=== PATIENT | female | born 1940 | race American Indian/Alaskan Native ===

== ENCOUNTER 2016-05-03 21:09 | Inpatient (IN) | payer MEDICARE ==
--- NOTE | 2016-05-03 21:53 | Emergency Department Report ---
HPI - General Time Seen by Provider: 05/03/16 21:44 - HPI HPI: This is a 76-year-old Afro-[place] female who presents to the emergency department via EMS from home with complaint of generalized pain. The patient's daughter, whom she lives with, is bedside currently. She says that the patient began complaining of a headache and then it started going down to her sides in her back. She was given her oral morphine and oxycodone around 8 PM this evening without much relief. Patient takes these medications for chronic back pain secondary to some scoliosis. She has a past medical history of chronic kidney disease but is not hemodialysis dependent and she used to follow-up with Dr. Ovalle. She also has a past medical history of insulin-dependent diabetes, hypertension, COPD. Her primary care doctor is Dr. Thomas. No trauma reported. Patient denies any fever, nausea, vomiting, chest pain, shortness of breath, vision change. ED Past Medical Hx - Past Medical History Hx Hypertension: Yes Hx Heart Attack/AMI: Yes (2007) Hx Congestive Heart Failure: Yes Hx Diabetes: Yes Hx Renal Disease: Yes (chronic) Hx Arthritis: Yes Hx Asthma: No Hx COPD: Yes Hx HIV: No Additional medical history: CKD, diastolic heart fialure, CAD, chronic back pain , [place] - Surgical History Hx Coronary Stent: Yes (2007) Hx Appendectomy: Yes Additional Surgical History: cardiac stents in 2007 - Social History Smoking Status: Never Smoker - Medications Home Medications: Home Medications Medication Instructions Recorded Confirmed Last Taken Type Aspirin [Aspirin BABY CHEW TAB] 81 mg PO QDAY 10/25/13 10/09/15 09/13/14 History Carvedilol [Coreg] 12.5 mg PO BID 10/25/13 10/09/15 09/13/14 History Citalopram [Celexa] 20 mg PO QDAY 10/25/13 10/09/15 09/13/14 History Esomeprazole Magnesium [NexIUM] 40 mg PO BID 10/25/13 10/09/15 09/13/14 History Gabapentin 300 mg PO TID 10/25/13 10/09/15 09/13/14 History Hydralazine HCl [hydrALAZINE] 100 mg PO TID 10/25/13 10/09/15 09/13/14 History Insulin Aspart [NovoLOG 100 10 unit SQ ACHS 01/26/14 10/09/15 09/13/14 History UNITS/ML VIAL] Insulin Glargine,Hum.rec.anlog 30 units SQ QHS 01/26/14 10/09/15 09/13/14 History [Lantus] Oxycodone HCl/Acetaminophen 1 each PO Q8HR PRN 04/09/14 10/09/15 09/13/14 History [OxyCODONE-Acetaminophen 2.5-325 mg] Colchicine 0.6 mg PO BID 10/09/15 10/09/15 Unknown History Cyclobenzaprine HCl [Flexeril 5 MG 5 mg PO BID 10/09/15 10/09/15 Unknown History TAB] Furosemide [Lasix TAB] 40 mg PO QDAY 10/09/15 10/09/15 Unknown History Ramelteon [Rozerem] 8 mg PO DAILY 10/09/15 10/09/15 Unknown History Simvastatin [Zocor TAB] 20 mg PO QHS 10/09/15 10/09/15 Unknown History amLODIPine [Norvasc] 10 mg PO DAILY 10/09/15 10/09/15 Unknown History ED Review of Systems ROS: Stated complaint: BODY PAIN Other details as noted in HPI Comment: All other systems reviewed and negative Constitutional: denies: chills, fever Eyes: denies: eye pain, eye discharge, vision change ENT: denies: ear pain, throat pain Respiratory: denies: cough, shortness of breath, wheezing Cardiovascular: denies: chest pain, palpitations Gastrointestinal: denies: abdominal pain, nausea, diarrhea Genitourinary: denies: urgency, dysuria, discharge Musculoskeletal: back pain, arthralgia, myalgia Skin: denies: rash, lesions Neurological: headache. denies: numbness, paresthesias Physical Exam - Physical Exam Physical Exam: GENERAL: The patient is well-developed well-nourished. Patient does not appear to be in any acute distress but she yells out in pain any time she is touched. HEENT: Normocephalic. Atraumatic. Extraocular motions are intact. Patient has moist mucous membranes. Pupils equal reactive to light bilaterally. NECK: Supple. Trachea is midline. CHEST/LUNGS: Clear to auscultation. There is no respiratory distress noted. HEART/CARDIOVASCULAR: Regular. There is mild tachycardia. There is no gallop rub or murmur. ABDOMEN: Abdomen is soft, nontender. Patient has normal bowel sounds. There is no abdominal distention. SKIN: There is no rash. There is no diaphoresis. NEURO: The patient is awake, alert. The patient is cooperative. The patient has no focal neurologic deficits. The patient has normal speech. MUSCULOSKELETAL: There is no tenderness or deformity. There is no evidence of acute injury. ED Course - Consultations Consultation #1: The patients PCP, Dr Thomas, has been notified of the patients presentation to the ED and the plan for admission. He asks for consultation and this request will be passed on to the hospitalist. 05/04/16 05:06 ED Medical Decision Making - Lab Data Result diagrams: 05/03/16 22:27 05/03/16 22:27 - EKG Data -: EKG Interpreted by Me EKG shows normal: sinus rhythm, axis (left axis deviation), intervals (left incomplete bundle branch block), QRS complexes (LVH), ST-T waves Rate: tachycardia (105 bpm) - EKG Data When compared to previous EKG there are: no significant change Interpretation: unchanged when compared t (10/11/15) - Radiology Data Radiology results: report reviewed CT of the head without contrast does not show any acute intracranial process. Complete abdominal ultrasound does not show any obvious abnormalities. The gallbladder, common bile duct, and bilateral kidneys are all within normal limits. The pancreas, spleen and liver are not well visualized due to the patient's body habitus. Left kidney may have fluid within the renal pelvis but view was suboptimal. This is the preliminary reading from the pest technician. - Medical Decision Making 76-year-old female presents to the emergency department with complaint of a headache and generalized body aches. However during the patient's ER stay she became more fatigued and sleepy without any pain medication administration. Patient's labs show some abnormalities with a significant urinary tract infection and the patient has hyperglycemia with a blood sugar greater than 500. She was given some IV fluid resuscitation and IV insulin and it does come down to more reasonable level but still not to a normal level. Patient has elevation in her osmolality which could be early HHNK. However patient does not appear to need a insulin drip at this time. There is no signs of acidosis and the anion gap is not severely elevated, but it is also not had a normal level. Blood and urine cultures are sent and the patient was started on IV antibiotics for her urinary tract infection. The patient is nonambulatory at home but usually is able to help more with her activities of daily living. Patient will be admitted to the hospital for further evaluation and treatment and has been accepted for admission by the hospitalist. - Differential Diagnosis DKA, HHNK, UTI, fibromyalgia, tension headache, brain bleed Critical Care Time: No Critical care attestation.: If time is entered above; I have spent that time in minutes in the direct care of this critically ill patient, excluding procedure time. ED Disposition Clinical Impression: Transaminitis UTI (urinary tract infection) Qualifiers: Urinary tract infection type: acute cystitis Hematuria presence: without hematuria Qualified Code(s): N30.00 - Acute cystitis without hematuria Uncontrolled diabetes mellitus Qualifiers: Diabetes mellitus type: type 1 Diabetes mellitus complication status: with hyperglycemia Qualified Code(s): E10.65 - Type 1 diabetes mellitus with hyperglycemia Chronic pain Qualifiers: Chronic pain type: other chronic pain Qualified Code(s): G89.29 - Other chronic pain Disposition: OP ADMITTED IP TO THIS HOSP Is pt being admited?: Yes Condition: Stable Time of Disposition: 05:09
[2016-05-03 22:49] LABS: Hematocrit 36.1 % (30.3-42.9); Hemoglobin 11.1 gm/dl (10.1-14.3); Mean Corpuscular HGB Conc 31 % (30-34); Mean Corpuscular Hemoglobin 28 pg (28-32); Mean Corpuscular Volume 89 fl (79-97); Platelet Count 242 K/mm3 (140-440); Red Blood Count 4.04 M/mm3 (3.65-5.03); Red Cell Distribution Width 16.7 % (13.2-15.2); White Blood Count 12.4 K/mm3 (4.5-11.0)
[2016-05-03 22:59] LABS: Bacteria,Urine 2+ /HPF (Negative); Bilirubin,Urine NEG (Negative); Blood,Urine LG (Negative); Ketones,Urine NEG (Negative); Leukocyte Esterase,Urine LG (Negative); Mucus,Urine FEW /HPF; Nitrite,Urine NEG (Negative); Urobilinogen,Urine < 2.0 mg/dL (<2.0)
[2016-05-03 23:06] LABS: Albumin/Globulin Ratio 0.9 %; BUN/Creatinine Ratio 26.66; Bilirubin,Total 0.4 mg/dL (0.1-1.2); Calcium 8.3 mg/dL (8.4-10.2); Chloride 94.5 mmol/L (98-107); Potassium 4.1 mmol/L (3.6-5.0); Total Protein 6.3 g/dL (6.3-8.2)
[2016-05-03 23:17] LABS: Basophils % (Manual) 0 % (0.0-1.8); Blastocytes % (Manual) 0 %; Eosinophils % (Manual) 0 % (0.0-4.3)
[2016-05-03] MEDS ORDERED: LEVAQUIN 750MG/150ML 150 ML IV ONE (23:17)
[2016-05-03 23:18] LABS: Anisocytosis Few; Poikilocytosis Few
[2016-05-03 23:19] LABS: Diff Status Complete
--- NOTE | 2016-05-03 23:20 | Cat Scan Report ---
FINAL REPORT PROCEDURE: CT HEAD/BRAIN WO CON TECHNIQUE: Computerized tomography of the head was performed without contrast material. HISTORY: Headache COMPARISON: 07/13/2014 FINDINGS: There are diffuse involutional changes, with prominence of the ventricles and the sulci. There is no CT evidence of intracranial mass, hemorrhage, acute territorial infarction, or hydrocephalus. The intracranial arteries are symmetric in density. The calvarium is intact. Visualized and mastoids are aerated. IMPRESSION: No CT evidence of acute intracranial abnormality
[2016-05-03] MEDS ORDERED: SUBLIMAZE IV ONE (23:36)
[2016-05-03] MEDS ORDERED: NACL 0.9% 500 ML 500 ML IV ONE (23:37)
--- NOTE | 2016-05-04 01:35 | Admit Criteria Form ---
Admission Criteria Documentation: HEADACHES: OBSERVATION CARE USE THIS FORM ONLY WHEN INPATIENT ADMISSION CRITERIA ARE NOT MET. (Place X for any and all applicable criteria): Placement for observation may be appropriate for a patient with ANY ONE of the following(1)(2)(3)(4)(5)(6) )(7): []I. Vomiting and dehydration unresponsive to outpatient interventions [X]II. Pain insufficiently responsive to outpatient intervention []II. Acute neurologic signs []III. Mental status change []IV. Head trauma []V. Other observation care needs (Also use General Criteria: Observation Care ) The original [facility] [employer] content created by [employer] has been revised. The portions of the content which have been revised are identified through the use of italic text, and [facility] has neither reviewed nor approved the modified material. All other unmodified content is copyright [facility] [employer]. Please see references footnoted in the original [facility] 2014 Admission Criteria Met: Yes
[2016-05-04] MEDS ORDERED: NACL 0.9% 500 ML 500 ML ONE (02:11)
[2016-05-04] MEDS ORDERED: SUBLIMAZE ONE ×2 (02:12→11:11)
--- NOTE | 2016-05-04 04:20 | History and Physical Report ---
History of Present Illness Chief complaint: I cant breathe History of present illness: 76 YO Female with HTN, MN, CHF,DM, OA, COPD, CKD presents to ED for evaluation. Pt states that she has been feeling "sick" for the past several days. Pt denies fever, chills, CP, Palpitations, NVD. Pt seen in ED and found to have UTI and Sepsis. Pt started on IV abx and admitted to medical floor. Past History Past Medical History: acute MN, COPD, diabetes, hypertension, renal failure Past Surgical History: appendectomy, Other (cardiac stent) Social history: , lives with family. denies: smoking, alcohol abuse, prescription drug abuse Family history: diabetes, hypertension Medications and Allergies Allergies Allergy/AdvReac Type Severity Reaction Status Date / Time No Known Allergies Allergy Verified 09/13/14 17:59 Home Medications Medication Instructions Recorded Confirmed Last Taken Type Aspirin [Aspirin BABY CHEW TAB] 81 mg PO QDAY 10/25/13 10/09/15 09/13/14 History Carvedilol [Coreg] 12.5 mg PO BID 10/25/13 10/09/15 09/13/14 History Citalopram [Celexa] 20 mg PO QDAY 10/25/13 10/09/15 09/13/14 History Esomeprazole Magnesium [NexIUM] 40 mg PO BID 10/25/13 10/09/15 09/13/14 History Gabapentin 300 mg PO TID 10/25/13 10/09/15 09/13/14 History Hydralazine HCl [hydrALAZINE] 100 mg PO TID 10/25/13 10/09/15 09/13/14 History Insulin Aspart [NovoLOG 100 10 unit SQ ACHS 01/26/14 10/09/15 09/13/14 History UNITS/ML VIAL] Insulin Glargine,Hum.rec.anlog 30 units SQ QHS 01/26/14 10/09/15 09/13/14 History [Lantus] Oxycodone HCl/Acetaminophen 1 each PO Q8HR PRN 04/09/14 10/09/15 09/13/14 History [OxyCODONE-Acetaminophen 2.5-325 mg] Colchicine 0.6 mg PO BID 10/09/15 10/09/15 Unknown History Cyclobenzaprine HCl [Flexeril 5 MG 5 mg PO BID 10/09/15 10/09/15 Unknown History TAB] Furosemide [Lasix TAB] 40 mg PO QDAY 10/09/15 10/09/15 Unknown History Ramelteon [Rozerem] 8 mg PO DAILY 10/09/15 10/09/15 Unknown History Simvastatin [Zocor TAB] 20 mg PO QHS 10/09/15 10/09/15 Unknown History amLODIPine [Norvasc] 10 mg PO DAILY 10/09/15 10/09/15 Unknown History Review of Systems All systems: negative Constitutional: weakness, malaise Exam - Constitutional Vitals: Temp Pulse Resp BP Pulse Ox 98.8 F 102 H 16 133/76 100 05/03/16 23:31 05/03/16 22:31 05/03/16 22:31 05/03/16 23:25 05/03/16 23:25 General appearance: Present: obese - EENT Eyes: Present: PERRL ENT: hearing intact, clear oral mucosa - Neck Neck: Present: supple - Respiratory Respiratory: bilateral: diminished - Cardiovascular Heart Sounds: Present: S1 & S2. Absent: rub, click - Extremities Extremities: pulses symmetrical, No edema Extremity abnormal: edema Peripheral Pulses: within normal limits - Abdominal General gastrointestinal: Present: soft, non-tender, non-distended, normal bowel sounds Female genitourinary: Present: normal - Integumentary Integumentary: Present: clear, warm, dry - Musculoskeletal Musculoskeletal: generalized weakness - Psychiatric Psychiatric: appropriate mood/affect, intact judgment & insight - Neurologic Neurologic: CNII-XII intact, moves all extremities Results - Labs CBC & Chem 7: 05/03/16 22:27 05/03/16 22:27 Labs: Abnormal lab results 05/03/16 05/03/16 05/03/16 Range/Units 22:03 22:27 22:27 WBC 12.4 H (4.5-11.0) K/mm3 RDW 16.7 H (13.2-15.2) % Seg Neuts % (Manual) 96.0 H (40.0-70.0) % Lymphocytes % (Manual) 0 L (13.4-35.0) % Nucleated RBC % 1.0 H (0.0-0.9) % Seg Neutrophils # Man 11.9 H (1.8-7.7) K/mm3 Lymphocytes # (Manual) 0.0 L (1.2-5.4) K/mm3 Sodium 135 L (137-145) mmol/L Chloride 94.5 L (98-107) mmol/L BUN 40 H (7-17) mg/dL Creatinine 1.5 H (0.7-1.2) mg/dL Glucose 513 H* (65-100) mg/dL POC Glucose 452 H (70-105) Calcium 8.3 L (8.4-10.2) mg/dL AST 262 H (5-40) units/L ALT 82 H (7-56) units/L Alkaline Phosphatase 138 H (35-129) units/L Albumin 3.0 L (3.9-5) g/dL Urine WBC (Auto) (0.0-6.0) /HPF 05/03/16 05/04/16 05/04/16 Range/Units 22:39 02:40 03:33 WBC (4.5-11.0) K/mm3 RDW (13.2-15.2) % Seg Neuts % (Manual) (40.0-70.0) % Lymphocytes % (Manual) (13.4-35.0) % Nucleated RBC % (0.0-0.9) % Seg Neutrophils # Man (1.8-7.7) K/mm3 Lymphocytes # (Manual) (1.2-5.4) K/mm3 Sodium (137-145) mmol/L Chloride (98-107) mmol/L BUN (7-17) mg/dL Creatinine (0.7-1.2) mg/dL Glucose (65-100) mg/dL POC Glucose 351 H 346 H (70-105) Calcium (8.4-10.2) mg/dL AST (5-40) units/L ALT (7-56) units/L Alkaline Phosphatase (35-129) units/L Albumin (3.9-5) g/dL Urine WBC (Auto) 108.0 H (0.0-6.0) /HPF Assessment and Plan - Patient Problems (1) Sepsis Current Visit: Yes Status: Acute Plan to address problem: Sepsis Protocol:IV abx, IVF, suportive care, monitor uop q shift, blood cultures (2) UTI (urinary tract infection) Current Visit: Yes Status: Acute Qualifiers: Urinary tract infection type: acute cystitis Hematuria presence: without hematuria Qualified Code(s): N30.00 - Acute cystitis without hematuria Plan to address problem: IV abx, supportive care, (3) CKD (chronic kidney disease) Current Visit: No Status: Chronic Plan to address problem: IVF, monitor uop q shift, (4) Chronic obstructive pulmonary disease Current Visit: No Status: Chronic Plan to address problem: Stable, No exacerbation at this time. supplemental oxygen, incentive spirometry , aspiration precautions. (5) Chronic respiratory failure with hypoxia Current Visit: No Status: Chronic Plan to address problem: supplemental oxygen, nebs, (6) Debility Current Visit: Yes Status: Acute Plan to address problem: PT consulted (7) DVT prophylaxis Current Visit: No Status: Acute
[2016-05-04] MEDS ORDERED: D50W (25GM) IV PRN (04:21)
[2016-05-04] MEDS: NOVOLOG SUB-Q SCH ×3 (09:25→17:38)
[2016-05-04] MEDS: LEVAQUIN 750MG/150ML 150 ML IV SCH (10:34)
--- NOTE | 2016-05-04 10:54 | Ultrasound Report ---
FINAL REPORT EXAM: US RENAL BILAT HISTORY: Flank pain, UTI . Prior history of renal stones TECHNIQUE: Ultrasound of the kidneys PRIORS: None. FINDINGS: Examination the kidneys demonstrates both to be normal in size and have normal cortical echogenicity and thickness. The right and left kidneys measure 9.7 cm and 9.7 cm in craniocaudal length, respectively. No evidence for calculi, hydronephrosis, or solid mass is seen in either kidney. The urinary bladder shows no intraluminal abnormality or wall thickening. IMPRESSION: Negative ultrasound of the kidneys.
--- NOTE | 2016-05-04 11:52 | Ultrasound Report ---
ULTRASOUND ABDOMEN: INDICATION: Abdominal pain, elevated LFT. COMPARISON: 10/09/2015 CT. FINDINGS: Abdominal sonography somewhat limited due to patient's body habitus, though suggests grossly normal hepatic contours without definite focal suspicious lesions or biliary dilatation. Slight diffuse hepatic echogenic coarsening not excluded. No gallstones, pericholecystic fluid or positive sonographic Cruz sign. Gallbladder wall thickness is 1.7 mm. Common bile duct is 5.4 mm. Patient though unable to turn left lateral decubitus. No ascites. Splenic visualization limited, though grossly unremarkable and estimated at 8.5 cm length. No ascites. Pancreas not well seen, obscured due to bowel gas. Unremarkable IVC and nonaneurysmal abdominal aorta. Right kidney approximately 9.7 x 5 x 4.9 cm with cortical thickness of 1.2 cm. Left kidney estimated at 9.1 x 5.6 x 4.8 cm with cortical thickness of 1.3 cm. No hydronephrosis on the right, though subtle left intrarenal collecting system fullness centrally not entirely excluded. CONCLUSION: 1. Slight diffuse hepatic echogenic coarsening not entirely excluded on this somewhat limited exam. 2. Questionable slight left intrarenal collecting system fullness/hydronephrosis. Thank you for the opportunity to participate in this patient's care.
--- NOTE | 2016-05-04 14:06 | Admit Criteria Form ---
Admission Criteria Documentation: SEVERE SEPSIS Clinical Indications for Admission to Inpatient Care (Place 'X' for any and all applicable criteria): Hospital admission is needed for appropriate care of the patient because of ANY ONE of the following: [X]I. Hemodynamic instability indicated by ANY ONE of the following(1)(2)(3)( 4)(5): []a. Vital sign abnormality not readily corrected by appropriate treatment within 12 to 24 hours indicated by ANY ONE of the following: []i) Tachycardia that persists despite appropriate treatment []ii) Hypotension that persists despite appropriate treatment []iii) Orthostatic vital sign changes that persist despite appropriate treatment [X]b. Vital sign abnormality that is severe indicated by ANY ONE of the following: []i. Inadequate perfusion indicated by ANY ONE of the following: [X]1) Lactic acidosis (greater than 2 mmol/L) []2) New abnormal capillary refill (greater than 3 seconds) []3) Reduced urine output []4) New altered mental status []5) Myocardial Ischemia []ii. Mean arterial pressure [A] less than 60 mm Hg []iii. Mean arterial pressure[A] less than 70 mm Hg after 30 minutes of appropriate treatment (eg, fluid resuscitation) []iv. Sustained heart rate greater than 120 beats per minute in adult []v. IV inotropic or vasopressor medication required to maintain adequate blood pressure or perfusion []II. Systemic or infectious condition causing severe symptoms or findings not responsive to emergency or observation care treatment (as appropriate) indicated by ANY ONE of the following: []a. Cardiac arrhythmias of immediate concern(1)(2)(3) []b. Severe endocrine disorder (eg, thyrotoxicosis, adrenal insufficiency)(4)(5) []c. Seizures (eg, new or recurrent)(6) []d. New-onset end organ failure or dysfunction as indicated by ANY ONE of the following: []i. Acute unexplained hypoxemia (eg, not from lung infection or chronic disease)(7)(8)(9) []ii. Acute renal failure as indicated by new onset of ANY ONE of the following(10)(11)(12)(13)(14): []1) 3-fold rise in serum creatinine from baseline []2) Serum creatinine greater than 4 mg/dL (354 micromoles/L) with acute rise greater than 0.5 mg/dL (44.2 micromoles/L) []3) Reduction of more than 75% in estimated glomerular filtration rate from baseline. []4) Estimated glomerular filtration rate less than 35 mL/min/1.73m2 ( 0.59 mL/sec/1.73m2) in child younger than 18 years. []5) Cessation of urine output indicated by ALL of the following: []A. Adequate volume status []B. Inadequate urine output as indicated by ANY ONE of the following: []a. Urine output less than 0.3 mL/kg/hr for 24 hours []b. Anuria (urine output less than 0.1 mL/kg/hr) for 12 hours []iii. Acute mental status changes(15) []iv. Acute hepatic failure (eg, plasma bilirubin greater than 4 mg/ dL (68 micromoles/L), new INR greater than 2.0)(16)(17) []e. Unmanageable nausea and vomiting(18) []f. New-onset or uncontrolled central diabetes insipidus(19)(20) []g. Clinically significant dehydration(18)(21) []h. Hypoglycemia(22) []i. Acidosis (pH less than 7.35) or alkalosis (pH greater than 7.45)( 22)(23) []j. Toxic drug level that indicates need for specific monitoring or treatment(24)(25) []k. Severe electrolyte abnormalities indicated by ALL of the following( 1)(2)(3): []i. Electrolytes and associated findings are not as expected for patient baseline or acceptable treatment effects. []ii. Severe abnormalities indicated by ANY ONE of the following: []1) Sodium less than 130 mEq/L (mmol/L) (new) []2) Sodium less than 135 mEq/L (mmol/L) with ANY ONE of the following: []A. Uncorrectable (to near normal or chronic baseline) after trial of outpatient and emergency treatment []B. Altered mental status []C. Seizures []D. Severe medical etiology requiring inpatient management (eg , heart failure, hypovolemia) []3) Sodium greater than 155 mEq/L (mmol/L) []4) Sodium greater than 150 mEq/L (mmol/L) with ANY ONE of the following: []A. Uncorrectable (to near normal or chronic baseline) with outpatient and emergency treatment []B. Altered mental status []C. Seizures []D. Severe medical etiology (eg, hypovolemia, diabetes insipidus) []5) Potassium less than 2.5 mEq/L (mmol/L) despite outpatient and emergency treatment []6) Potassium less than 3 mEq/L (mmol/L) with ANY ONE of the following : []A. Weakness []B. Cardiac abnormality (eg, arrhythmia, conduction disturbance ) []C. Cardiac ischemia []D. Ileus []E. Ongoing medical cause requiring inpatient management (eg, acute renal wasting or SIADH) []F. Other severe symptoms []7) Potassium greater than 6.5 mEq/L (mmol/L) []8) Potassium greater than 5 mEq/L (mmol/L) with ANY ONE of the following: []A. Uncorrectable (to near normal or chronic baseline) with outpatient and emergency treatment []B. Severe ECG findings[A] []C. Acute worsening of renal failure (creatinine greater than 2.5 mg/dL (221 micromoles/L) or significant elevation for age and size) []D. Severe weakness []E. Severe medical etiology (eg, hemolysis, infection, drug overdose) []9) Calcium less than 7 mg/dL (1.75 mmol/L) despite outpatient and emergency treatment(5) []10) Calcium less than 8 mg/dL (2 mmol/L) with significant symptoms or findings (eg, altered mental status, muscle spasms, seizures, breathing difficulty, cardiac abnormality (eg, arrhythmia or conduction disturbance))(5) []11) Calcium greater than 14 mg/dL (3.5 mmol/L)(5) []12) Calcium greater than 12 mg/dL (3 mmol/L) with ANY ONE of the following(5): []A. Uncorrectable (to near normal or chronic baseline) with outpatient and emergency treatment []B. Significant dehydration or hypovolemia as indicated by ALL of the following(3)(6)(7): []a. Not resolved with initial treatments []b. Clinically significant dehydration as indicated by ANY ONE of the following: [](1) Vomiting refractory to outpatient treatment (ie, precluding oral rehydration) [](2) Inability to drink [](3) Hypernatremia or other electrolyte abnormality unable to be corrected with outpatient and emergency treatment [](4) Failure to remain hydrated with outpatient therapy [](5) Reduced urine output [](6) Hypotension [](7) Serious cause for dehydration requiring acute hospitalization ( eg, bowel obstruction, increased intracranial pressure, infectious cause) [](8) Child with ANY ONE of the following(8): [](i) Severe abdominal tenderness [](ii) Adequate care not available at home [](iii) Severe dehydration (greater than 9% loss of body weight) []C. Significant symptoms or findings (eg, altered mental status , cardiac abnormality (eg, arrhythmia, conduction disturbance), malignant etiology requiring inpatient treatment) []13) Phosphorus less than 1 mg/dL (0.32 mmol/L) []14) Phosphorus less than 1.5 mg/dL (0.48 mmol/L) with ANY ONE of the following: []A. Patient unresponsive to outpatient and emergency treatment []B. Significant symptoms or findings (eg, weakness, altered mental status, breathing difficulty, seizures, rhabdomyolysis) []15) Phosphorus greater than 10 mg/dL (3.2 mmol/L) []16) Phosphorus greater than 4.5 mg/dL (1.45 mmol/L) (new) with ANY ONE of the following: []A. Severe medical etiology (eg, crush injury, acute renal failure) []B. Associated hypocalcemia with significant findings (eg, neurologic symptoms, altered mental status, muscle spasms, seizures, breathing difficulty, cardiac abnormality (eg, arrhythmia, conduction disturbance)) []16) Magnesium less than 1 mg/dL (0.41 mmol/L) []17) Magnesium less than 1.5 mg/dL (0.62 mmol/L) with ANY ONE of the following: []A. Patient unresponsive to outpatient and emergency treatment []B. Associated hypocalcemia with significant findings (eg, altered mental status, muscle spasms, seizures, breathing difficulty, cardiac abnormality (eg, arrhythmia, conduction disturbance)) []C. Associated hypokalemia (potassium less than 3 mEq/L (mmol/L )) with risk of arrhythmia []18) Magnesium greater than 4 mEq/L (2 mmol/L) []19) Magnesium greater than 2.5 mEq/L (1.25 mmol/L) with significant symptoms or findings (eg, weakness, altered mental status, cardiac abnormality (eg, arrhythmia, conduction disturbance), breathing difficulty, severe medical etiology (eg, renal failure, hypovolemia)) []20) Uric acid greater than 20 mg/dL (1190 micromoles/L)(9) []21) Uric acid greater than 8 mg/dL (476 micromoles/L) with significant symptoms or findings of tumor lysis syndrome (eg, creatinine greater than 1.5 times upper limit of normal, cardiac abnormality (eg , arrhythmia, conduction disturbance), seizure)(9) []III. High fever or other high-risk infection situation as indicated by ANY ONE of the following(26)(27)(28): []a. Outpatient and observation care antimicrobial treatment unavailable, not effective, or not appropriate []b. Documented bacteremia []c. Temperature greater than 104.9 degrees F (40.5 degrees C) (oral) []d. Temperature greater than 103.1 degrees F (39.5 degrees C) (oral) or less than 96.8 degrees F (36 degrees C) (rectal) that does not respond to emergency treatment and observation care []IV. High-risk febrile neutropenia[A] as indicated by ANY ONE of the following(29)(30)(31)(32): []a. Profound neutropenia[B] anticipated to extend for more than 7 days []b. Hemodynamic instability []c. Hypoxemia []d. Tachypnea []e. Altered mental status []f. New-onset abdominal pain []g. New-onset vomiting or diarrhea []h. Oral or gastrointestinal mucositis that interferes with swallowing or causes severe diarrhea []i. Focal infection (eg, cellulitis, pneumonia, central line or catheter infection, perirectal abscess) []j. Renal insufficiency (eg, GFR of less than 30 mL/min/1.73m2 (0.5 mL/sec /1.73m2)). []k. Severe liver dysfunction (transaminase levels greater than 5 times normal) []l. Platelet count less than 50,000/mm3 (50 x109/L)(33) []m. Leukemia or lymphoma induction therapy []n. Leukemia not in complete remission or with evidence of disease progression []o. Bone marrow transplant patient []p. Alemtuzumab being used for therapy []q. [employer] for Supportive Care in Cancer (MASCC) Risk Index score of less than 21[C](33)(35). []V. Isolation required (eg, tuberculosis that requires isolation, Ebola infection)[D](36)(37)(38)(39)(40) []. Gangrene that requires treatment beyond emergency or observation level care(41)(42) []VII. Antitoxin administration and ongoing observation required (eg, tetanus, botulism)(43)(44) []. Suspected infection with rapid progression or severe symptoms as indicated by ANY ONE of the following(45): []a. Streptococcal or staphylococcal toxic shock(46) []b. Diphtheria(47) []c. Hantavirus(48) []d. Severe acute respiratory syndrome(8)(49) []e. Anthrax(50) []f. Ebola[D](36)(37)(38) []g. Necrotizing soft tissue infection(41)(42) []h. Plague(50) []i. Other suspected infection that requires care beyond emergency or observation level care []VII. Severe adverse drug or systemic toxin reaction as indicated by ANY ONE of the following(24): []a. Serotonin syndrome(51)(52) []b. Neuroleptic malignant syndrome(51)(52) []c. Cholinergic syndrome with severe symptoms (eg, bronchorrhea, weakness , mental status changes, seizures)(53) []d. Anticholinergic syndrome []e. Sympathetic syndrome with severe symptoms (eg, seizures, mental status changes, cardiac dysrhythmias) []f. Other severe adverse drug or systemic toxin reaction that remains after emergency or observation level care (as appropriate) []VIII. Allergic reaction with severe symptoms (not responsive to emergency or observation care treatment as appropriate), including ANY ONE of the following(54): []a. Airway edema (pharyngeal, epiglottic, or laryngeal edema) []b. Stridor []c. Respiratory failure []d. Bronchospasm []e. Hypotension []IX. Environmental emergency (not responsive to emergency or observation care treatment as appropriate) as indicated by ANY ONE of the following(55)(56): []a. Hyperthermia []b. Heat stroke []c. Heat exhaustion []d. Hypothermia (temperature less than 95 degrees F (35 degrees C) rectal) (57) []e. Electrocution(58) []X. Complications of transplanted organ (ie, not covered elsewhere)[E] indicated by ANY ONE of the following(59): []a. Acute graft rejection (or graft vs. host disease)[F] requiring inpatient management (eg, intravenous immunosuppression)(60)(61)(62)( 63) []b. Acute failure of transplanted organ necessitating inpatient care (eg, cannot be managed in other setting) []c. Infection requiring inpatient management (eg, Hemodynamic instability, need for intravenous antimicrobial treatment)(64)(65) []d. Other complication of transplanted organ requiring inpatient management []XI. Systemic or Infectious Condition condition, symptom, or finding for which emergency and observation care have failed or are not considered appropriate. See General Criteria: Observation Care, General Admission Criteria or Pediatric General Admission Criteria guideline as appropriate. (Contents from SEVERE SEPSIS and SYSTEMIC OR INFECTIOUS CONDITION clinical indications for admission to inpatient care have been integrated in this form) The original [facility] content created by [facility] has been revised. The portions of the content which have been revised are identified through the use of italic text or in bold and [facility] has neither reviewed nor approved the modified material. All other unmodified content is copyright [facility]. Please see references footnoted in the original [facility] edition 2016 Admission Criteria Met: Yes
--- NOTE | 2016-05-04 17:37 | Consultation ---
History of Present Illness - Reason for Consult Consult date: 05/04/16 - History of Present Illness Patient seen , examined in the ER. She presented to the Er with difficulty breathing, w/u led to admission, for sxs management.Kindly asked to see, and help in management. Past History Past Medical History: acute [place], anemia, COPD, diabetes, hypertension, renal failure Past Surgical History: appendectomy, Other (cardiac stent) Social history: , lives with family. denies: smoking, alcohol abuse, prescription drug abuse Family history: diabetes, hypertension Medications and Allergies Allergies Allergy/AdvReac Type Severity Reaction Status Date / Time No Known Allergies Allergy Verified 09/13/14 17:59 Home Medications Medication Instructions Recorded Confirmed Last Taken Type Aspirin [Aspirin BABY CHEW TAB] 81 mg PO QDAY 10/25/13 10/09/15 09/13/14 History Carvedilol [Coreg] 12.5 mg PO BID 10/25/13 10/09/15 09/13/14 History Citalopram [Celexa] 20 mg PO QDAY 10/25/13 10/09/15 09/13/14 History Esomeprazole Magnesium [NexIUM] 40 mg PO BID 10/25/13 10/09/15 09/13/14 History Gabapentin 300 mg PO TID 10/25/13 10/09/15 09/13/14 History Hydralazine HCl [hydrALAZINE] 100 mg PO TID 10/25/13 10/09/15 09/13/14 History Insulin Aspart [NovoLOG 100 10 unit SQ ACHS 01/26/14 10/09/15 09/13/14 History UNITS/ML VIAL] Insulin Glargine,Hum.rec.anlog 30 units SQ QHS 01/26/14 10/09/15 09/13/14 History [Lantus] Oxycodone HCl/Acetaminophen 1 each PO Q8HR PRN 04/09/14 10/09/15 09/13/14 History [OxyCODONE-Acetaminophen 2.5-325 mg] Colchicine 0.6 mg PO BID 10/09/15 10/09/15 Unknown History Cyclobenzaprine HCl [Flexeril 5 MG 5 mg PO BID 10/09/15 10/09/15 Unknown History TAB] Furosemide [Lasix TAB] 40 mg PO QDAY 10/09/15 10/09/15 Unknown History Ramelteon [Rozerem] 8 mg PO DAILY 10/09/15 10/09/15 Unknown History Simvastatin [Zocor TAB] 20 mg PO QHS 10/09/15 10/09/15 Unknown History amLODIPine [Norvasc] 10 mg PO DAILY 10/09/15 10/09/15 Unknown History Active Meds: Active Medications Dextrose (D50w (25gm)) 50 ml IV PRN PRN PRN Reason: Hypoglycemia Levofloxacin/Dextrose (Levaquin 750mg/150ml) 150 mls @ 100 mls/hr IV Q24HR JULIA PRN Reason: Protocol Last Admin: 05/04/16 10:34 Dose: 100 mls/hr Insulin Aspart (Novolog) 0 units SUB-Q Q6HR JULIA PRN Reason: Protocol Last Admin: 05/04/16 12:55 Dose: 6 units Review of Systems Constitutional: weight gain, weakness, chronic pain Respiratory: dyspnea on exertion Musculoskeletal: neck pain, low back pain, leg numbness/tingling, arthritis Neurological: parathesias Exam - Constitutional Vitals: Temp Pulse Resp BP Pulse Ox 98.8 F 93 H 20 111/53 98 05/03/16 23:31 05/04/16 00:01 05/04/16 09:04 05/04/16 17:01 05/04/16 17:01 General appearance: Present: mild distress, well-nourished - EENT Eyes: Present: PERRL ENT: hearing intact, clear oral mucosa - Neck Neck: Present: supple, normal ROM - Respiratory Respiratory: bilateral: rhonchi - Cardiovascular Heart Sounds: Present: S1 & S2. Absent: rub, click - Extremities Extremities: pulses symmetrical, No edema Extremity abnormal: edema Peripheral Pulses: within normal limits - Abdominal General gastrointestinal: Present: soft, non-tender, non-distended, normal bowel sounds Female genitourinary: Present: deferred - Rectal Rectal Exam: deferred - Integumentary Integumentary: Present: clear, warm, dry - Musculoskeletal Musculoskeletal: gait normal, strength equal bilaterally - Psychiatric Psychiatric: appropriate mood/affect, intact judgment & insight - Neurologic Neurologic: CNII-XII intact, moves all extremities Results - Labs CBC & Chem 7: 05/03/16 22:27 05/03/16 22:27 Labs: Abnormal lab results 05/04/16 05/04/16 05/04/16 Range/Units 04:37 04:37 04:37 POC Glucose (70-105) Hemoglobin A1c 16.6 H (4-6) % Lactic Acid 2.9 H* (0.7-2.0) mmol/L LDL Cholesterol Direct 33 L (50-130) mg/dL HDL Cholesterol 115 H (40-59) mg/dL 05/04/16 05/04/16 05/04/16 Range/Units 07:27 08:52 12:44 POC Glucose 264 H 202 H (70-105) Hemoglobin A1c (4-6) % Lactic Acid 2.2 H* (0.7-2.0) mmol/L LDL Cholesterol Direct (50-130) mg/dL HDL Cholesterol (40-59) mg/dL Assessment and Plan - Patient Problems (1) Chronic pain Current Visit: Yes Status: Acute Qualifiers: Chronic pain type: other chronic pain Qualified Code(s): G89.29 - Other chronic pain Plan to address problem: safe pain control. (2) Debility Current Visit: Yes Status: Acute Plan to address problem: Will need supportive care, with Therapy.physically. (3) Uncontrolled diabetes mellitus Current Visit: Yes Status: Acute Qualifiers: Diabetes mellitus type: type 2 Diabetes mellitus complication status: with hyperglycemia Qualified Code(s): E10.65 - Type 1 diabetes mellitus with hyperglycemia Plan to address problem: This was initially in part due to chronic steroid use.Will need tighter BG control. (4) CKD (chronic kidney disease), stage II Current Visit: Yes Status: Chronic Plan to address problem: deffer to the renal service. (5) Anemia Current Visit: Yes Status: Acute Qualifiers: Qualified Code(s): D63.8 - Anemia in other chronic diseases classified elsewhere Plan to address problem: lab monitoring, treating the underlying problem.ie CKD.
--- NOTE | 2016-05-04 18:03 | Event Note ---
Date: 05/04/16 Patient seen and evaluated, medical records reviewed Patient was admitted this morning with worsening shortness of breath, workup is in progress Agreed with the current management, appropriate home medications resumed A.m. labs requested
[2016-05-04] MEDS ORDERED: NEURONTIN PO SCH (20:00)
[2016-05-04] MEDS: APRESOLINE PO SCH (20:18)
[2016-05-04] MEDS: NEURONTIN PO SCH (20:41)
[2016-05-04] MEDS ORDERED: NON-FORMULARY (Insulin Glargine,Hum.Rec.Anlog [Lantus] 30 UNITS) SQ SCH (22:00)
[2016-05-04] MEDS ORDERED: COREG PO SCH (22:00)
[2016-05-04] MEDS ORDERED: NON-FORMULARY (Colchicine [Colchicine] 0.6 MG) PO SCH (22:00)
[2016-05-05] MEDS: NOVOLOG SUB-Q SCH ×4 (00:41→19:46)
[2016-05-05] MEDS: COLCRYS PO SCH ×3 (00:44→22:09)
[2016-05-05] MEDS: COREG PO SCH ×3 (00:44→22:10)
[2016-05-05] MEDS: LEVEMIR SUB-Q SCH ×2 (00:51→23:17)
[2016-05-05] MEDS: ZOCOR PO SCH ×2 (01:06→23:12)
[2016-05-05 06:56] LABS: Hematocrit 30.1 % (30.3-42.9); Hemoglobin 9.4 gm/dl (10.1-14.3); Mean Corpuscular HGB Conc 31 % (30-34); Mean Corpuscular Hemoglobin 28 pg (28-32); Mean Corpuscular Volume 89 fl (79-97); Platelet Count 167 K/mm3 (140-440); Red Blood Count 3.38 M/mm3 (3.65-5.03); Red Cell Distribution Width 17.3 % (13.2-15.2)
[2016-05-05 06:58] LABS: BUN/Creatinine Ratio 19.33; Calcium 7.9 mg/dL (8.4-10.2); Chloride 94.7 mmol/L (98-107); Magnesium 1.4 mg/dL (1.7-2.3)
[2016-05-05 07:24] LABS: White Blood Count 21.1 K/mm3 (4.5-11.0)
[2016-05-05 08:27] LABS: Blastocytes % (Manual) 0 %
[2016-05-05 08:28] LABS: Anisocytosis 1+; Basophils % (Manual) 0 % (0.0-1.8); Eosinophils % (Manual) 0 % (0.0-4.3); Poikilocytosis 1+; Polychromasia 1+
[2016-05-05 08:29] LABS: Diff Status Complete; Dohle Bodies Few; Tear Drop Cells 1+
[2016-05-05] MEDS: APRESOLINE PO SCH ×3 (09:35→20:08)
[2016-05-05] MEDS: NEURONTIN PO SCH ×3 (09:35→22:09)
[2016-05-05] MEDS: BABY ASPIRIN PO SCH (09:35)
[2016-05-05] MEDS: NORVASC PO SCH (09:36)
[2016-05-05] MEDS: LASIX PO SCH (09:36)
[2016-05-05] MEDS: LEVAQUIN 750MG/150ML 150 ML IV SCH (09:37)
--- NOTE | 2016-05-05 19:26 | Progress Note ---
Assessment and Plan Assessment and plan: 1. Sepsis Fever, leukocytosis, tachycardia, positive UA Likely secondary to UTI Urine and blood cultures obtained, results pending On sepsis protocol - continue broad-spectrum antibiotics 2. UTI see above 3. Acute renal insufficiency superimposed on chronic kidney disease Renal function worsening, Cr 3 today, 1.5 for an admission Renal ultrasound with no acute findings (no obstruction, no hydronephrosis) Avoiding nephrotoxins Dose medications renally Monitor BUN/creatinine and electrolytes If further worsening, will hold diuretic 4. Uncontrolled diabetes BS on admission 500, Hemoglobin A1c 16 Family reports compliance with insulin; ? issues with absorption; plan to change administration site Accu-Cheks and SSI to assess insulin requirements 5. CAD With history of acute [place] On beta dinesh, aspirin and statin; not on BRANDON inhibitor likely secondary to chronic kidney disease 6. Hypertension BB controlled on Coreg, amlodipine, hydralazine, Lasix 7. Diastolic CHF On beta dinesh and diuretic (Lasix) Not an BRANDON inhibitor likely secondary to chronic kidney disease Monitoring I&O 8. Hyperlipidemia On statin 9. Gout Continue colchicine 10. DVT prophylaxis Heparin subcutaneous History Interval history: somnolent, no specific complaints; low grade fever this morning family at [facility], [facility] Hospitalist Physical - Constitutional Vitals: Temp Pulse Resp BP Pulse Ox 98.7 F 94 H 20 122/56 97 05/05/16 15:30 05/05/16 15:30 05/05/16 15:30 05/05/16 15:30 05/05/16 10:00 General appearance: Present: mild distress, obese (morbidly) - EENT Eyes: Present: PERRL, EOM intact. Absent: scleral icterus, conjunctival injection - Neck Neck: Present: supple, normal ROM. Absent: masses or JVD - Respiratory Respiratory effort: normal Respiratory: bilateral: diminished, negative: rhonchi, wheezing - Cardiovascular Rhythm: other (tachycardic) Heart Sounds: Present: S1 & S2. Absent: systolic murmur - Extremities Extremities: no ischemia Extremity abnormal: edema - Abdominal General gastrointestinal: soft, non-tender, non-distended, normal bowel sounds - Integumentary Integumentary: Present: warm, dry. Absent: jaundice, rash - Neurologic Neurologic: moves all extremities Results - Labs CBC & Chem 7: 05/06/16 08:32 05/06/16 08:32 Labs: Laboratory Last Values WBC 21.1 K/mm3 (4.5-11.0) H 05/05/16 06:18 RBC 3.38 M/mm3 (3.65-5.03) L 05/05/16 06:18 Hgb 9.4 gm/dl (10.1-14.3) L 05/05/16 06:18 Hct 30.1 % (30.3-42.9) L D 05/05/16 06:18 MCV 89 fl (79-97) 05/05/16 06:18 MCH 28 pg (28-32) 05/05/16 06:18 MCHC 31 % (30-34) 05/05/16 06:18 RDW 17.3 % (13.2-15.2) H 05/05/16 06:18 Plt Count 167 K/mm3 (140-440) 05/05/16 06:18 Add Manual Diff Complete 05/05/16 06:18 Total Counted 100 05/05/16 06:18 Seg Neutrophils % Senior Paralegal 05/05/16 06:18 Seg Neuts % (Manual) 71.0 % (40.0-70.0) H 05/05/16 06:18 Band Neutrophils % 20.0 % 05/05/16 06:18 Lymphocytes % (Manual) 2.0 % (13.4-35.0) L 05/05/16 06:18 Reactive Lymphs % (Man) 0 % 05/05/16 06:18 Monocytes % (Manual) 4.0 % (0.0-7.3) 05/05/16 06:18 Eosinophils % (Manual) 0 % (0.0-4.3) 05/05/16 06:18 Basophils % (Manual) 0 % (0.0-1.8) 05/05/16 06:18 Metamyelocytes % 3.0 % 05/05/16 06:18 Myelocytes % 0 % 05/05/16 06:18 Promyelocytes % 0 % 05/05/16 06:18 Blast Cells % 0 % 05/05/16 06:18 Nucleated RBC % Not Reportable 05/05/16 06:18 Seg Neutrophils # Man 15.0 K/mm3 (1.8-7.7) H 05/05/16 06:18 Band Neutrophils # 4.2 K/mm3 05/05/16 06:18 Lymphocytes # (Manual) 0.4 K/mm3 (1.2-5.4) L 05/05/16 06:18 Abs React Lymphs (Man) 0.0 K/mm3 05/05/16 06:18 Monocytes # (Manual) 0.8 K/mm3 (0.0-0.8) 05/05/16 06:18 Eosinophils # (Manual) 0.0 K/mm3 (0.0-0.4) 05/05/16 06:18 Basophils # (Manual) 0.0 K/mm3 (0.0-0.1) 05/05/16 06:18 Metamyelocytes # 0.6 K/mm3 05/05/16 06:18 Myelocytes # 0.0 K/mm3 05/05/16 06:18 Promyelocytes # 0.0 K/mm3 05/05/16 06:18 Blast Cells # 0.0 K/mm3 05/05/16 06:18 WBC Morphology Not Reportable 05/05/16 06:18 Hypersegmented Neuts Not Reportable 05/05/16 06:18 Hyposegmented Neuts Not Reportable 05/05/16 06:18 Hypogranular Neuts Not Reportable 05/05/16 06:18 Smudge Cells Not Reportable 05/05/16 06:18 Toxic Granulation Not Reportable 05/05/16 06:18 Toxic Vacuolation Not Reportable 05/05/16 06:18 Dohle Bodies Few 05/05/16 06:18 Pelger-Huet Anomaly Not Reportable 05/05/16 06:18 Zenon Rods Not Reportable 05/05/16 06:18 Platelet Estimate Appears normal 05/05/16 06:18 Clumped Platelets Not Reportable 05/05/16 06:18 Plt Clumps, EDTA Not Reportable 05/05/16 06:18 Large Platelets Not Reportable 05/05/16 06:18 Giant Platelets Not Reportable 05/05/16 06:18 Platelet Satelliting Not Reportable 05/05/16 06:18 Plt Morphology Comment Not Reportable 05/05/16 06:18 RBC Morphology Not Reportable 05/05/16 06:18 Dimorphic RBCs Not Reportable 05/05/16 06:18 Polychromasia 1+ 05/05/16 06:18 Hypochromasia Not Reportable 05/05/16 06:18 Poikilocytosis 1+ 05/05/16 06:18 Anisocytosis 1+ 05/05/16 06:18 Microcytosis Not Reportable 05/05/16 06:18 Macrocytosis Not Reportable 05/05/16 06:18 Spherocytes Not Reportable 05/05/16 06:18 Pappenheimer Bodies Not Reportable 05/05/16 06:18 Sickle Cells Not Reportable 05/05/16 06:18 Target Cells Not Reportable 05/05/16 06:18 Tear Drop Cells 1+ 05/05/16 06:18 Ovalocytes Not Reportable 05/05/16 06:18 Helmet Cells Not Reportable 05/05/16 06:18 Osborne-Appleby Bodies Not Reportable 05/05/16 06:18 [place] Rings Not Reportable 05/05/16 06:18 Fellows Cells Not Reportable 05/05/16 06:18 Bite Cells Not Reportable 05/05/16 06:18 Crenated Cell Not Reportable 05/05/16 06:18 Elliptocytes Not Reportable 05/05/16 06:18 Acanthocytes (Spur) Not Reportable 05/05/16 06:18 Rouleaux Not Reportable 05/05/16 06:18 Hemoglobin C Crystals Not Reportable 05/05/16 06:18 Schistocytes Not Reportable 05/05/16 06:18 Malaria parasites Not Reportable 05/05/16 06:18 Tulio Bodies Not Reportable 05/05/16 06:18 Hem Pathologist Commnt No 05/05/16 06:18 VBG pH 7.394 (7.320-7.420) 05/03/16 23:25 Sodium 134 mmol/L (137-145) L 05/05/16 06:18 Potassium 5.0 mmol/L (3.6-5.0) D 05/05/16 06:18 Chloride 94.7 mmol/L (98-107) L 05/05/16 06:18 Carbon Dioxide 24 mmol/L (22-30) 05/05/16 06:18 Anion Gap 20 mmol/L 05/05/16 06:18 BUN 58 mg/dL (7-17) H 05/05/16 06:18 Creatinine 3.0 mg/dL (0.7-1.2) H D 05/05/16 06:18 Estimated GFR 18 ml/min 05/05/16 06:18 BUN/Creatinine Ratio 19.33 % 05/05/16 06:18 Glucose 188 mg/dL (65-100) H 05/05/16 06:18 POC Glucose 180 (70-105) H 05/05/16 12:17 Hemoglobin A1c 16.6 % (4-6) H 05/04/16 04:37 Osmolality 319 Mosm/kg 05/03/16 22:27 Lactic Acid 3.4 mmol/L (0.7-2.0) H* 05/05/16 06:18 Calcium 7.9 mg/dL (8.4-10.2) L 05/05/16 06:18 Magnesium 1.4 mg/dL (1.7-2.3) L 05/05/16 06:18 Total Bilirubin 0.4 mg/dL (0.1-1.2) 05/03/16 22:27 AST 262 units/L (5-40) H 05/03/16 22:27 ALT 82 units/L (7-56) H 05/03/16 22:27 Alkaline Phosphatase 138 units/L (35-129) H 05/03/16 22:27 Total Creatine Kinase 34 units/L (30-135) 05/03/16 22:27 Total Protein 6.3 g/dL (6.3-8.2) 05/03/16 22:27 Albumin 3.0 g/dL (3.9-5) L 05/03/16 22:27 Albumin/Globulin Ratio 0.9 % 05/03/16 22:27 Triglycerides 66 mg/dL (2-149) 05/04/16 04:37 Cholesterol 161 mg/dL (50-199) 05/04/16 04:37 LDL Cholesterol Direct 33 mg/dL (50-130) L 05/04/16 04:37 HDL Cholesterol 115 mg/dL (40-59) H 05/04/16 04:37 Cholesterol/HDL Ratio 1.40 % 05/04/16 04:37 TSH 3.830 mlU/mL (0.270-4.200) 05/03/16 22:27 Urine Color Yellow (Yellow) 05/03/16 22:39 Urine Turbidity Slightly-cloudy (Clear) 05/03/16 22:39 Urine pH 6.0 (5.0-7.0) 05/03/16 22:39 Ur Specific Garnett 1.011 (1.003-1.030) 05/03/16 22:39 Urine Protein 100 mg/dl mg/dL (Negative) 05/03/16 22:39 Urine Glucose (UA) >=500 mg/dL (Negative) 05/03/16 22:39 Urine Ketones Neg mg/dL (Negative) 05/03/16 22:39 Urine Blood Lg (Negative) 05/03/16 22:39 Urine Nitrite Neg (Negative) 05/03/16 22:39 Urine Bilirubin Neg (Negative) 05/03/16 22:39 Urine Urobilinogen < 2.0 mg/dL (<2.0) 05/03/16 22:39 Ur Leukocyte Esterase Lg (Negative) 05/03/16 22:39 Urine WBC (Auto) 108.0 /HPF (0.0-6.0) H 05/03/16 22:39 Urine RBC (Auto) 28.0 /HPF (0.0-6.0) 05/03/16 22:39 U Epithel Cells (Auto) < 1.0 /HPF (0-13.0) 05/03/16 22:39 Urine Bacteria (Auto) 2+ /HPF (Negative) 05/03/16 22:39 Urine Mucus Few /HPF 05/03/16 22:39 Urine Yeast (Budding) 1+ /HPF 05/03/16 22:39 Ketones 1.0 mg/dL (0.2-2.8) 05/03/16 23:25 - Imaging and Cardiology CT Scan - head: report reviewed (no acute findings) Imaging and Cardiology: Renal ultrasound - no acute findings
--- NOTE | 2016-05-05 20:05 | Consultation ---
History of Present Illness - Reason for Consult Consult date: 05/05/16 - History of Present Illness Patient seen/examined, labs reviewed, case d/w her family. i have reviewed her CT of the brain, neg. Us of the abd show ? hydronephrosis/infra renal dz. She remained lethargic, sleeping all the time.UA =108wbc, +1 yeast. Past History Past Medical History: acute [place], anemia, COPD, diabetes, hypertension, renal failure Past Surgical History: appendectomy, Other (cardiac stent) Social history: , lives with family. denies: smoking, alcohol abuse, prescription drug abuse Family history: diabetes, hypertension Medications and Allergies Allergies Allergy/AdvReac Type Severity Reaction Status Date / Time No Known Allergies Allergy Verified 09/13/14 17:59 Home Medications Medication Instructions Recorded Confirmed Last Taken Type Aspirin [Aspirin BABY CHEW TAB] 81 mg PO QDAY 10/25/13 10/09/15 09/13/14 History Carvedilol [Coreg] 12.5 mg PO BID 10/25/13 10/09/15 09/13/14 History Citalopram [Celexa] 20 mg PO QDAY 10/25/13 10/09/15 09/13/14 History Esomeprazole Magnesium [NexIUM] 40 mg PO BID 10/25/13 10/09/15 09/13/14 History Gabapentin 300 mg PO TID 10/25/13 10/09/15 09/13/14 History Hydralazine HCl [hydrALAZINE] 100 mg PO TID 10/25/13 10/09/15 09/13/14 History Insulin Aspart [NovoLOG 100 10 unit SQ ACHS 01/26/14 10/09/15 09/13/14 History UNITS/ML VIAL] Insulin Glargine,Hum.rec.anlog 30 units SQ QHS 01/26/14 10/09/15 09/13/14 History [Lantus] Oxycodone HCl/Acetaminophen 1 each PO Q8HR PRN 04/09/14 10/09/15 09/13/14 History [OxyCODONE-Acetaminophen 2.5-325 mg] Colchicine 0.6 mg PO BID 10/09/15 10/09/15 Unknown History Cyclobenzaprine HCl [Flexeril 5 MG 5 mg PO BID 10/09/15 10/09/15 Unknown History TAB] Furosemide [Lasix TAB] 40 mg PO QDAY 10/09/15 10/09/15 Unknown History Ramelteon [Rozerem] 8 mg PO DAILY 10/09/15 10/09/15 Unknown History Simvastatin [Zocor TAB] 20 mg PO QHS 10/09/15 10/09/15 Unknown History amLODIPine [Norvasc] 10 mg PO DAILY 10/09/15 10/09/15 Unknown History Active Meds: Active Medications Amlodipine Besylate (Norvasc) 10 mg PO DAILY [facility] Last Admin: 05/05/16 09:36 Dose: Not Given Aspirin (Baby Aspirin) 81 mg PO QDAY [facility] Last Admin: 05/05/16 09:35 Dose: Not Given Carvedilol (Coreg) 12.5 mg PO BID [facility] Last Admin: 05/05/16 09:35 Dose: Not Given Colchicine (Colcrys) 0.6 mg PO BID [facility] Last Admin: 05/05/16 09:35 Dose: Not Given Dextrose (D50w (25gm)) 50 ml IV PRN PRN PRN Reason: Hypoglycemia Furosemide (Lasix) 40 mg PO QDAY [facility] Last Admin: 05/05/16 09:36 Dose: Not Given Gabapentin (Neurontin) 300 mg PO TID [facility] Last Admin: 05/05/16 13:05 Dose: Not Given Hydralazine HCl (Apresoline) 100 mg PO TID [facility] Last Admin: 05/05/16 13:05 Dose: Not Given Levofloxacin/Dextrose (Levaquin 750mg/150ml) 150 mls @ 100 mls/hr IV Q24HR [facility] PRN Reason: Protocol Last Admin: 05/05/16 09:37 Dose: 100 mls/hr Insulin Aspart (Novolog) 0 units SUB-Q Q6HR [facility] PRN Reason: Protocol Last Admin: 05/05/16 19:46 Dose: Not Given Insulin Detemir (Levemir) 30 units SUB-Q QHS [facility] Last Admin: 05/05/16 00:51 Dose: 30 units Simvastatin (Zocor) 20 mg PO QHS [facility] Last Admin: 05/05/16 01:06 Dose: 20 mg Review of Systems Constitutional: fatigue, weakness, lethargy Ears, nose, mouth and throat: headache Breasts: deferred Musculoskeletal: low back pain, muscle weakness, myalgias Neurological: parathesias, numbness, tingling Exam - Constitutional Vitals: Temp Pulse Resp BP Pulse Ox 98.7 F 94 H 20 122/56 97 05/05/16 15:30 05/05/16 15:30 05/05/16 15:30 05/05/16 15:30 05/05/16 10:00 General appearance: Present: mild distress, well-nourished - EENT Eyes: Present: PERRL ENT: hearing intact, clear oral mucosa - Neck Neck: Present: supple, normal ROM - Respiratory Respiratory: bilateral: rhonchi - Cardiovascular Heart Sounds: Present: S1 & S2. Absent: rub, click - Extremities Extremities: pulses symmetrical, No edema Extremity abnormal: edema Peripheral Pulses: abnormal - Abdominal General gastrointestinal: Present: soft, non-tender, non-distended, normal bowel sounds Female genitourinary: Present: deferred - Rectal Rectal Exam: deferred - Integumentary Integumentary: Present: clear, warm, dry Results - Labs CBC & Chem 7: 05/05/16 06:18 05/05/16 06:18 Labs: Abnormal lab results 05/04/16 05/05/16 05/05/16 Range/Units 21:30 00:14 06:02 WBC (4.5-11.0) K/mm3 RBC (3.65-5.03) M/mm3 Hgb (10.1-14.3) gm/dl Hct (30.3-42.9) % RDW (13.2-15.2) % Seg Neuts % (Manual) (40.0-70.0) % Lymphocytes % (Manual) (13.4-35.0) % Seg Neutrophils # Man (1.8-7.7) K/mm3 Lymphocytes # (Manual) (1.2-5.4) K/mm3 Sodium (137-145) mmol/L Chloride (98-107) mmol/L BUN (7-17) mg/dL Creatinine (0.7-1.2) mg/dL Glucose (65-100) mg/dL POC Glucose 163 H 206 H 186 H (70-105) Lactic Acid (0.7-2.0) mmol/L Calcium (8.4-10.2) mg/dL Magnesium (1.7-2.3) mg/dL 05/05/16 05/05/16 05/05/16 Range/Units 06:18 06:18 06:18 WBC 21.1 H (4.5-11.0) K/mm3 RBC 3.38 L (3.65-5.03) M/mm3 Hgb 9.4 L (10.1-14.3) gm/dl Hct 30.1 L D (30.3-42.9) % RDW 17.3 H (13.2-15.2) % Seg Neuts % (Manual) 71.0 H (40.0-70.0) % Lymphocytes % (Manual) 2.0 L (13.4-35.0) % Seg Neutrophils # Man 15.0 H (1.8-7.7) K/mm3 Lymphocytes # (Manual) 0.4 L (1.2-5.4) K/mm3 Sodium 134 L (137-145) mmol/L Chloride 94.7 L (98-107) mmol/L BUN 58 H (7-17) mg/dL Creatinine 3.0 H D (0.7-1.2) mg/dL Glucose 188 H (65-100) mg/dL POC Glucose (70-105) Lactic Acid 3.4 H* (0.7-2.0) mmol/L Calcium 7.9 L (8.4-10.2) mg/dL Magnesium 1.4 L (1.7-2.3) mg/dL 05/05/16 Range/Units 12:17 WBC (4.5-11.0) K/mm3 RBC (3.65-5.03) M/mm3 Hgb (10.1-14.3) gm/dl Hct (30.3-42.9) % RDW (13.2-15.2) % Seg Neuts % (Manual) (40.0-70.0) % Lymphocytes % (Manual) (13.4-35.0) % Seg Neutrophils # Man (1.8-7.7) K/mm3 Lymphocytes # (Manual) (1.2-5.4) K/mm3 Sodium (137-145) mmol/L Chloride (98-107) mmol/L BUN (7-17) mg/dL Creatinine (0.7-1.2) mg/dL Glucose (65-100) mg/dL POC Glucose 180 H (70-105) Lactic Acid (0.7-2.0) mmol/L Calcium (8.4-10.2) mg/dL Magnesium (1.7-2.3) mg/dL Assessment and Plan - Patient Problems (1) Chronic pain Current Visit: Yes Status: Acute Qualifiers: Chronic pain type: other chronic pain Qualified Code(s): G89.29 - Other chronic pain Plan to address problem: safe pain control. (2) Debility Current Visit: Yes Status: Acute Plan to address problem: Will need supportive care, with Therapy.physically. (3) Uncontrolled diabetes mellitus Current Visit: Yes Status: Acute Qualifiers: Diabetes mellitus type: type 2 Diabetes mellitus complication status: with hyperglycemia Qualified Code(s): E10.65 - Type 1 diabetes mellitus with hyperglycemia Plan to address problem: This was initially in part due to chronic steroid use.Will need tighter BG control. (4) CKD (chronic kidney disease), stage II Current Visit: Yes Status: Chronic Plan to address problem: deffer to the renal service. (5) Anemia Current Visit: Yes Status: Acute Qualifiers: Qualified Code(s): D63.8 - Anemia in other chronic diseases classified elsewhere Plan to address problem: lab monitoring, treating the underlying problem.ie CKD. (6) Sepsis Current Visit: Yes Status: Acute Qualifiers: Qualified Code(s): A41.9 - Sepsis, unspecified organism Plan to address problem: due to uti,most likely multi organism. continue with IV abx, and await C/S.
[2016-05-05] MEDS: TYLENOL PR PRN (23:42)
[2016-05-06] MEDS: NOVOLOG SUB-Q SCH ×5 (00:57→18:53)
[2016-05-06 08:58] LABS: Hematocrit 26.6 % (30.3-42.9); Hemoglobin 8.5 gm/dl (10.1-14.3); Mean Corpuscular HGB Conc 32 % (30-34); Mean Corpuscular Hemoglobin 28 pg (28-32); Mean Corpuscular Volume 87 fl (79-97); Platelet Count 124 K/mm3 (140-440); Red Blood Count 3.05 M/mm3 (3.65-5.03); Red Cell Distribution Width 17.4 % (13.2-15.2); White Blood Count 15.6 K/mm3 (4.5-11.0)
[2016-05-06] MEDS: NEURONTIN PO SCH ×3 (09:04→20:52)
[2016-05-06] MEDS: APRESOLINE PO SCH ×3 (09:04→20:56)
[2016-05-06 09:14] LABS: BUN/Creatinine Ratio 19.44; Calcium 7.1 mg/dL (8.4-10.2)
[2016-05-06 09:15] LABS: Chloride 97.3 mmol/L (98-107); Potassium 4.4 mmol/L (3.6-5.0)
[2016-05-06 09:47] LABS: Blastocytes % (Manual) 0 %
[2016-05-06 09:48] LABS: Anisocytosis 1+; Basophils % (Manual) 0 % (0.0-1.8); Burr Cells Few; Diff Status Complete; Dohle Bodies 2+; Eosinophils % (Manual) 0 % (0.0-4.3); Helmet Cells Rare; Ovalocytes 1+; Platelet Estimate Appears Decreased; Poikilocytosis 1+; Polychromasia 1+; Tear Drop Cells 1+
[2016-05-06] MEDS: MAXIPIME/NS 1 GM/100 ML 100 ML IV SCH (09:50)
[2016-05-06] MEDS ORDERED: MAXIPIME/NS 2 GM/100 ML 100 ML IV SCH (10:00)
[2016-05-06] MEDS: LEVAQUIN 750MG/150ML 150 ML IV SCH (10:52)
[2016-05-06] MEDS: LASIX PO SCH (11:25)
[2016-05-06] MEDS: COLCRYS PO SCH ×3 (11:25→21:12)
[2016-05-06] MEDS: BABY ASPIRIN PO SCH (11:25)
[2016-05-06] MEDS: NORVASC PO SCH (11:25)
[2016-05-06] MEDS: COREG PO SCH ×2 (11:26→22:00)
[2016-05-06] MEDS: TYLENOL PR PRN ×2 (11:40→20:49)
--- NOTE | 2016-05-06 16:14 | Progress Note ---
Assessment and Plan Assessment and plan: 1. Sepsis Secondary to UTI (blood and urine cultures positive for Escherichia coli) On broad-spectrum antibiotics (see below discussion about antibiotics) Continue sepsis protocol 2. UTI Urine culture positive for Escherichia coli and another GNR Escherichia coli is pansensitive, but until identification and sensitivities for the other GNR available, will continue broad-spectrum antibiotics (cefepime and levofloxacin) 3. Acute renal insufficiency superimposed on chronic kidney disease Renal function continues to worsen, Cr 3.6 today, 1.5 for an admission Renal ultrasound with no acute findings (no obstruction, no hydronephrosis) Will hold Lasix Avoid other nephrotoxins Dose medications renally Monitor BUN/creatinine and electrolytes If further worsening, consider nephrology evaluation 4. Uncontrolled diabetes BS on admission 500, Hemoglobin A1c 16 Family reports compliance with insulin; ? issues with absorption; plan to change administration site Accu-Cheks and SSI to assess insulin requirements 5. CAD With history of acute AL On beta dinesh, aspirin and statin; not on BRANDON inhibitor likely secondary to chronic kidney disease 6. Hypertension BB controlled on Coreg, amlodipine, hydralazine, Lasix 7. Diastolic CHF On beta dinesh and diuretic (Lasix) Not an BRANDON inhibitor likely secondary to chronic kidney disease Will need to hold Lasix due to worsening renal function Monitor I&O 8. Hyperlipidemia On statin 9. Gout Continue colchicine 10. DVT prophylaxis Heparin subcutaneous; monitoring platelets History Interval history: no specific complaints, more alert per family report Hospitalist Physical - Constitutional Vitals: Temp Pulse Resp BP Pulse Ox 99.1 F 84 16 122/62 99 05/06/16 09:10 05/06/16 09:10 05/06/16 11:40 05/06/16 11:26 05/06/16 10:00 General appearance: Present: no acute distress, other (morbidly obese) - EENT Eyes: Present: PERRL, EOM intact. Absent: scleral icterus, conjunctival injection ENT: hearing decreased, poor dentition, thrush, no oropharyngeal erythema - Neck Neck: Present: supple, normal ROM. Absent: masses or JVD - Respiratory Respiratory effort: normal Respiratory: bilateral: diminished, negative: rhonchi, wheezing - Cardiovascular Rhythm: regular Heart Sounds: Present: S1 & S2. Absent: systolic murmur - Extremities Extremities: no ischemia Extremity abnormal: edema - Abdominal General gastrointestinal: soft, non-tender, non-distended, normal bowel sounds - Integumentary Integumentary: Present: warm, dry. Absent: jaundice, rash - Neurologic Neurologic: moves all extremities Results - Labs CBC & Chem 7: 05/06/16 08:32 05/06/16 08:32 Labs: Laboratory Last Values WBC 15.6 K/mm3 (4.5-11.0) H 05/06/16 08:32 RBC 3.05 M/mm3 (3.65-5.03) L 05/06/16 08:32 Hgb 8.5 gm/dl (10.1-14.3) L 05/06/16 08:32 Hct 26.6 % (30.3-42.9) L 05/06/16 08:32 MCV 87 fl (79-97) 05/06/16 08:32 MCH 28 pg (28-32) 05/06/16 08:32 MCHC 32 % (30-34) 05/06/16 08:32 RDW 17.4 % (13.2-15.2) H 05/06/16 08:32 Plt Count 124 K/mm3 (140-440) L 05/06/16 08:32 Add Manual Diff Complete 05/06/16 08:32 Total Counted 100 05/06/16 08:32 Seg Neutrophils % Gripper Attacher 05/06/16 08:32 Seg Neuts % (Manual) 94.0 % (40.0-70.0) H 05/06/16 08:32 Band Neutrophils % 3.0 % 05/06/16 08:32 Lymphocytes % (Manual) 2.0 % (13.4-35.0) L 05/06/16 08:32 Reactive Lymphs % (Man) 0 % 05/06/16 08:32 Monocytes % (Manual) 1.0 % (0.0-7.3) 05/06/16 08:32 Eosinophils % (Manual) 0 % (0.0-4.3) 05/06/16 08:32 Basophils % (Manual) 0 % (0.0-1.8) 05/06/16 08:32 Metamyelocytes % 0 % 05/06/16 08:32 Myelocytes % 0 % 05/06/16 08:32 Promyelocytes % 0 % 05/06/16 08:32 Blast Cells % 0 % 05/06/16 08:32 Nucleated RBC % Not Reportable 05/06/16 08:32 Seg Neutrophils # Man 14.7 K/mm3 (1.8-7.7) H 05/06/16 08:32 Band Neutrophils # 0.5 K/mm3 05/06/16 08:32 Lymphocytes # (Manual) 0.3 K/mm3 (1.2-5.4) L 05/06/16 08:32 Abs React Lymphs (Man) 0.0 K/mm3 05/06/16 08:32 Monocytes # (Manual) 0.2 K/mm3 (0.0-0.8) 05/06/16 08:32 Eosinophils # (Manual) 0.0 K/mm3 (0.0-0.4) 05/06/16 08:32 Basophils # (Manual) 0.0 K/mm3 (0.0-0.1) 05/06/16 08:32 Metamyelocytes # 0.0 K/mm3 05/06/16 08:32 Myelocytes # 0.0 K/mm3 05/06/16 08:32 Promyelocytes # 0.0 K/mm3 05/06/16 08:32 Blast Cells # 0.0 K/mm3 05/06/16 08:32 WBC Morphology Not Reportable 05/06/16 08:32 Hypersegmented Neuts Not Reportable 05/06/16 08:32 Hyposegmented Neuts Not Reportable 05/06/16 08:32 Hypogranular Neuts Not Reportable 05/06/16 08:32 Smudge Cells Not Reportable 05/06/16 08:32 Toxic Granulation Not Reportable 05/06/16 08:32 Toxic Vacuolation Not Reportable 05/06/16 08:32 Dohle Bodies 2+ 05/06/16 08:32 Pelger-Huet Anomaly Not Reportable 05/06/16 08:32 Zenon Rods Not Reportable 05/06/16 08:32 Platelet Estimate Appears decreased 05/06/16 08:32 Clumped Platelets Not Reportable 05/06/16 08:32 Plt Clumps, EDTA Not Reportable 05/06/16 08:32 Large Platelets Not Reportable 05/06/16 08:32 Giant Platelets Not Reportable 05/06/16 08:32 Platelet Satelliting Not Reportable 05/06/16 08:32 Plt Morphology Comment Not Reportable 05/06/16 08:32 RBC Morphology Not Reportable 05/06/16 08:32 Dimorphic RBCs Not Reportable 05/06/16 08:32 Polychromasia 1+ 05/06/16 08:32 Hypochromasia Not Reportable 05/06/16 08:32 Poikilocytosis 1+ 05/06/16 08:32 Anisocytosis 1+ 05/06/16 08:32 Microcytosis Not Reportable 05/06/16 08:32 Macrocytosis Not Reportable 05/06/16 08:32 Spherocytes Not Reportable 05/06/16 08:32 Pappenheimer Bodies Not Reportable 05/06/16 08:32 Sickle Cells Not Reportable 05/06/16 08:32 Target Cells Not Reportable 05/06/16 08:32 Tear Drop Cells 1+ 05/06/16 08:32 Ovalocytes 1+ 05/06/16 08:32 Helmet Cells Rare 05/06/16 08:32 [place] Bodies Not Reportable 05/06/16 08:32 [place] Rings Not Reportable 05/06/16 08:32 Arie Cells Few 05/06/16 08:32 Bite Cells Not Reportable 05/06/16 08:32 Crenated Cell Not Reportable 05/06/16 08:32 Elliptocytes Not Reportable 05/06/16 08:32 Acanthocytes (Spur) Not Reportable 05/06/16 08:32 Rouleaux Not Reportable 05/06/16 08:32 Hemoglobin C Crystals Not Reportable 05/06/16 08:32 Schistocytes Not Reportable 05/06/16 08:32 Malaria parasites Not Reportable 05/06/16 08:32 Tulio Bodies Not Reportable 05/06/16 08:32 Hem Pathologist Commnt No 05/06/16 08:32 VBG pH 7.394 (7.320-7.420) 05/03/16 23:25 Sodium 137 mmol/L (137-145) 05/06/16 08:32 Potassium 4.4 mmol/L (3.6-5.0) 05/06/16 08:32 Chloride 97.3 mmol/L (98-107) L 05/06/16 08:32 Carbon Dioxide 20 mmol/L (22-30) L 05/06/16 08:32 Anion Gap 24 mmol/L 05/06/16 08:32 BUN 70 mg/dL (7-17) H 05/06/16 08:32 Creatinine 3.6 mg/dL (0.7-1.2) H 05/06/16 08:32 Estimated GFR 15 ml/min 05/06/16 08:32 BUN/Creatinine Ratio 19.44 % 05/06/16 08:32 Glucose 163 mg/dL (65-100) H 05/06/16 08:32 POC Glucose 175 (70-105) H 05/06/16 06:12 Hemoglobin A1c 16.6 % (4-6) H 05/04/16 04:37 Osmolality 319 Mosm/kg 05/03/16 22:27 Lactic Acid 3.4 mmol/L (0.7-2.0) H* 05/05/16 06:18 Calcium 7.1 mg/dL (8.4-10.2) L 05/06/16 08:32 Magnesium 1.4 mg/dL (1.7-2.3) L 05/05/16 06:18 Total Bilirubin 0.4 mg/dL (0.1-1.2) 05/03/16 22:27 AST 262 units/L (5-40) H 05/03/16 22:27 ALT 82 units/L (7-56) H 05/03/16 22:27 Alkaline Phosphatase 138 units/L (35-129) H 05/03/16 22:27 Total Creatine Kinase 34 units/L (30-135) 05/03/16 22:27 Total Protein 6.3 g/dL (6.3-8.2) 05/03/16 22:27 Albumin 3.0 g/dL (3.9-5) L 05/03/16 22:27 Albumin/Globulin Ratio 0.9 % 05/03/16 22:27 Triglycerides 66 mg/dL (2-149) 05/04/16 04:37 Cholesterol 161 mg/dL (50-199) 05/04/16 04:37 LDL Cholesterol Direct 33 mg/dL (50-130) L 05/04/16 04:37 HDL Cholesterol 115 mg/dL (40-59) H 05/04/16 04:37 Cholesterol/HDL Ratio 1.40 % 05/04/16 04:37 TSH 3.830 mlU/mL (0.270-4.200) 05/03/16 22:27 Urine Color Yellow (Yellow) 05/03/16 22:39 Urine Turbidity Slightly-cloudy (Clear) 05/03/16 22:39 Urine pH 6.0 (5.0-7.0) 05/03/16 22:39 Ur Specific [place] 1.011 (1.003-1.030) 05/03/16 22:39 Urine Protein 100 mg/dl mg/dL (Negative) 05/03/16 22:39 Urine Glucose (UA) >=500 mg/dL (Negative) 05/03/16 22:39 Urine Ketones Neg mg/dL (Negative) 05/03/16 22:39 Urine Blood Lg (Negative) 05/03/16 22:39 Urine Nitrite Neg (Negative) 05/03/16 22:39 Urine Bilirubin Neg (Negative) 05/03/16 22:39 Urine Urobilinogen < 2.0 mg/dL (<2.0) 05/03/16 22:39 Ur Leukocyte Esterase Lg (Negative) 05/03/16 22:39 Urine WBC (Auto) 108.0 /HPF (0.0-6.0) H 05/03/16 22:39 Urine RBC (Auto) 28.0 /HPF (0.0-6.0) 05/03/16 22:39 U Epithel Cells (Auto) < 1.0 /HPF (0-13.0) 05/03/16 22:39 Urine Bacteria (Auto) 2+ /HPF (Negative) 05/03/16 22:39 Urine Mucus Few /HPF 05/03/16 22:39 Urine Yeast (Budding) 1+ /HPF 05/03/16 22:39 Ketones 1.0 mg/dL (0.2-2.8) 05/03/16 23:25
[2016-05-06] MEDS ORDERED: NACL 0.9% 500 ML 500 ML IV SCH (17:00)
[2016-05-06] MEDS: ZOCOR PO SCH (20:53)
[2016-05-06] MEDS: HEPARIN SUB-Q SCH (21:13)
--- NOTE | 2016-05-06 21:50 | Consultation ---
History of Present Illness - Reason for Consult Consult date: 05/06/16 - History of Present Illness Patient seen/examined, labs reviewed., case d/w patient/family. She is more alert. Past History Past Medical History: acute [place], anemia, COPD, diabetes, hypertension, renal failure Past Surgical History: appendectomy, Other (cardiac stent) Social history: , lives with family. denies: smoking, alcohol abuse, prescription drug abuse Family history: diabetes, hypertension Medications and Allergies Allergies Allergy/AdvReac Type Severity Reaction Status Date / Time No Known Allergies Allergy Verified 09/13/14 17:59 Home Medications Medication Instructions Recorded Confirmed Last Taken Type Aspirin [Aspirin BABY CHEW TAB] 81 mg PO QDAY 10/25/13 10/09/15 09/13/14 History Carvedilol [Coreg] 12.5 mg PO BID 10/25/13 10/09/15 09/13/14 History Citalopram [Celexa] 20 mg PO QDAY 10/25/13 10/09/15 09/13/14 History Esomeprazole Magnesium [NexIUM] 40 mg PO BID 10/25/13 10/09/15 09/13/14 History Gabapentin 300 mg PO TID 10/25/13 10/09/15 09/13/14 History Hydralazine HCl [hydrALAZINE] 100 mg PO TID 10/25/13 10/09/15 09/13/14 History Insulin Aspart [NovoLOG 100 10 unit SQ ACHS 01/26/14 10/09/15 09/13/14 History UNITS/ML VIAL] Insulin Glargine,Hum.rec.anlog 30 units SQ QHS 01/26/14 10/09/15 09/13/14 History [Lantus] Oxycodone HCl/Acetaminophen 1 each PO Q8HR PRN 04/09/14 10/09/15 09/13/14 History [OxyCODONE-Acetaminophen 2.5-325 mg] Colchicine 0.6 mg PO BID 10/09/15 10/09/15 Unknown History Cyclobenzaprine HCl [Flexeril 5 MG 5 mg PO BID 10/09/15 10/09/15 Unknown History TAB] Furosemide [Lasix TAB] 40 mg PO QDAY 10/09/15 10/09/15 Unknown History Ramelteon [Rozerem] 8 mg PO DAILY 10/09/15 10/09/15 Unknown History Simvastatin [Zocor TAB] 20 mg PO QHS 10/09/15 10/09/15 Unknown History amLODIPine [Norvasc] 10 mg PO DAILY 10/09/15 10/09/15 Unknown History Active Meds: Active Medications Acetaminophen (Tylenol) 650 mg IN Q8H PRN PRN Reason: Pain, Mild (1-3) Last Admin: 05/06/16 20:49 Dose: 650 mg Amlodipine Besylate (Norvasc) 10 mg PO DAILY [facility] Last Admin: 05/06/16 11:25 Dose: 10 mg Aspirin (Baby Aspirin) 81 mg PO QDAY [facility] Last Admin: 05/06/16 11:25 Dose: 81 mg Carvedilol (Coreg) 12.5 mg PO BID [facility] Last Admin: 05/06/16 11:26 Dose: 12.5 mg Colchicine (Colcrys) 0.6 mg PO BID [facility] Last Admin: 05/06/16 21:12 Dose: Not Given Dextrose (D50w (25gm)) 50 ml IV PRN PRN PRN Reason: Hypoglycemia Gabapentin (Neurontin) 300 mg PO TID [facility] Last Admin: 05/06/16 20:52 Dose: 300 mg Heparin Sodium (Porcine) (Heparin) 5,000 unit SUB-Q Q8HR [facility] Last Admin: 05/06/16 21:13 Dose: 5,000 unit Hydralazine HCl (Apresoline) 100 mg PO TID [facility] Last Admin: 05/06/16 20:56 Dose: Not Given Cefepime HCl (Maxipime/Ns 1 Gm/100 Ml) 100 mls @ 200 mls/hr IV Q24HR [facility] PRN Reason: Protocol Last Admin: 05/06/16 09:50 Dose: 200 mls/hr Levofloxacin/Dextrose (Levaquin 750mg/150ml) 150 mls @ 100 mls/hr IV Q48HR [facility] PRN Reason: Protocol Sodium Chloride (Nacl 0.9% 500 Ml) 500 mls @ 50 mls/hr IV DIRECT [facility] Insulin Aspart (Novolog) 0 units SUB-Q Q6HR [facility] PRN Reason: Protocol Last Admin: 05/06/16 18:53 Dose: 4 units Insulin Detemir (Levemir) 30 units SUB-Q QHS [facility] Last Admin: 05/05/16 23:17 Dose: Not Given Lidocaine HCl (Magic Mouthwash) 15 ml PO TID [facility]ULIA Simvastatin (Zocor) 20 mg PO QHS [facility] Last Admin: 05/06/16 20:53 Dose: 20 mg Review of Systems Constitutional: weakness, lethargy Breasts: deferred Respiratory: shortness of breath Musculoskeletal: low back pain Neurological: parathesias Exam - Constitutional Vitals: Temp Pulse Resp BP Pulse Ox 98.4 F 74 20 98/64 100 05/06/16 20:00 05/06/16 20:00 05/06/16 20:00 05/06/16 20:00 05/06/16 20:00 General appearance: Present: mild distress, well-nourished - EENT Eyes: Present: PERRL ENT: hearing intact, clear oral mucosa - Neck Neck: Present: supple, normal ROM - Respiratory Respiratory: bilateral: rhonchi - Cardiovascular Heart Sounds: Present: S1 & S2. Absent: rub, click - Extremities Extremities: pulses symmetrical, No edema Peripheral Pulses: within normal limits - Abdominal General gastrointestinal: Present: soft, non-tender, non-distended, normal bowel sounds Female genitourinary: Present: deferred - Rectal Rectal Exam: deferred - Integumentary Integumentary: Present: clear, warm, dry - Musculoskeletal Musculoskeletal: generalized weakness - Neurologic Neurologic: moves all extremities Results - Labs CBC & Chem 7: 05/06/16 08:32 05/06/16 08:32 Labs: Abnormal lab results 05/06/16 05/06/16 05/06/16 Range/Units 06:12 08:32 08:32 WBC 15.6 H (4.5-11.0) K/mm3 RBC 3.05 L (3.65-5.03) M/mm3 Hgb 8.5 L (10.1-14.3) gm/dl Hct 26.6 L (30.3-42.9) % RDW 17.4 H (13.2-15.2) % Plt Count 124 L (140-440) K/mm3 Seg Neuts % (Manual) 94.0 H (40.0-70.0) % Lymphocytes % (Manual) 2.0 L (13.4-35.0) % Seg Neutrophils # Man 14.7 H (1.8-7.7) K/mm3 Lymphocytes # (Manual) 0.3 L (1.2-5.4) K/mm3 Chloride 97.3 L (98-107) mmol/L Carbon Dioxide 20 L (22-30) mmol/L BUN 70 H (7-17) mg/dL Creatinine 3.6 H (0.7-1.2) mg/dL Glucose 163 H (65-100) mg/dL POC Glucose 175 H (70-105) Calcium 7.1 L (8.4-10.2) mg/dL Assessment and Plan - Patient Problems (1) Chronic pain Current Visit: Yes Status: Acute Qualifiers: Chronic pain type: other chronic pain Qualified Code(s): G89.29 - Other chronic pain Plan to address problem: safe pain control. same as above. (2) Debility Current Visit: Yes Status: Acute Plan to address problem: Will need supportive care, with Therapy.physically. same as above. (3) Uncontrolled diabetes mellitus Current Visit: Yes Status: Acute Qualifiers: Diabetes mellitus type: type 2 Diabetes mellitus complication status: with hyperglycemia Qualified Code(s): E10.65 - Type 1 diabetes mellitus with hyperglycemia Plan to address problem: This was initially in part due to chronic steroid use.Will need tighter BG control. (4) CKD (chronic kidney disease), stage II Current Visit: Yes Status: Chronic Plan to address problem: deffer to the renal service. (5) Anemia Current Visit: Yes Status: Acute Qualifiers: Qualified Code(s): D63.8 - Anemia in other chronic diseases classified elsewhere Plan to address problem: lab monitoring, treating the underlying problem.ie CKD. (6) Sepsis Current Visit: Yes Status: Acute Qualifiers: Qualified Code(s): A41.9 - Sepsis, unspecified organism Plan to address problem: due to uti,most likely multi organism. continue with IV abx, and await C/S.
[2016-05-06] MEDS: MAGIC MOUTHWASH PO SCH (23:00)
[2016-05-06] MEDS: LEVEMIR SUB-Q SCH (23:00)
[2016-05-07] MEDS: ZOCOR PO SCH ×2 (00:08→22:00)
[2016-05-07] MEDS: NOVOLOG SUB-Q SCH ×3 (00:09→18:42)
[2016-05-07] MEDS: TYLENOL PR PRN (05:23)
[2016-05-07] MEDS: HEPARIN SUB-Q SCH ×3 (05:24→22:01)
[2016-05-07 09:08] LABS: Hematocrit 27.6 % (30.3-42.9); Hemoglobin 8.9 gm/dl (10.1-14.3); Mean Corpuscular HGB Conc 32 % (30-34); Mean Corpuscular Hemoglobin 28 pg (28-32); Mean Corpuscular Volume 86 fl (79-97); Red Blood Count 3.21 M/mm3 (3.65-5.03); Red Cell Distribution Width 17.7 % (13.2-15.2); White Blood Count 9.4 K/mm3 (4.5-11.0)
[2016-05-07 09:10] LABS: Platelet Count 99 K/mm3 (140-440)
[2016-05-07 09:34] LABS: BUN/Creatinine Ratio 20.76; Calcium 7.2 mg/dL (8.4-10.2); Magnesium 1.6 mg/dL (1.7-2.3); Phosphorous 6.6 mg/dL (2.5-4.5)
[2016-05-07 09:35] LABS: Chloride 96.4 mmol/L (98-107); Potassium 4.5 mmol/L (3.6-5.0)
[2016-05-07 11:34] LABS: Anisocytosis 1+; Blastocytes % (Manual) 0 %; Burr Cells Rare; Eosinophils % (Manual) 0 % (0.0-4.3); Ovalocytes 1+; Poikilocytosis 1+; Polychromasia Few; Tear Drop Cells 1+
[2016-05-07 11:35] LABS: Diff Status Complete; Helmet Cells Rare
[2016-05-07] MEDS: NORVASC PO SCH (13:06)
[2016-05-07] MEDS: COLCRYS PO SCH ×2 (13:06→22:17)
[2016-05-07] MEDS: COREG PO SCH ×2 (13:06→21:22)
[2016-05-07] MEDS: APRESOLINE PO SCH ×3 (13:08→20:21)
[2016-05-07] MEDS: NEURONTIN PO SCH ×3 (13:08→21:58)
[2016-05-07] MEDS: BABY ASPIRIN PO SCH (13:08)
[2016-05-07] MEDS: MAXIPIME/NS 1 GM/100 ML 100 ML IV SCH (13:14)
[2016-05-07] MEDS: MAGIC MOUTHWASH PO SCH ×3 (16:01→22:20)
--- NOTE | 2016-05-07 19:08 | Progress Note ---
Assessment and Plan Assessment and plan: 1. Sepsis Secondary to UTI (blood and urine cultures positive for Escherichia coli) On broad-spectrum antibiotics (see below discussion about antibiotics) Continue sepsis protocol 2. UTI Urine culture positive for Escherichia coli and another GNR Escherichia coli is pansensitive, but until identification and sensitivities for the other GNR available (still pending today), will continue broad-spectrum antibiotics (cefepime and levofloxacin) 3. Acute renal insufficiency superimposed on chronic kidney disease Renal function continues to worsen, Cr 3.9 today (1.5 for an admission) even though Lasix was held since yesterday Renal ultrasound with no acute findings (no obstruction, no hydronephrosis) Will consult nephrology Avoid nephrotoxins Dose medications renally Continue to monitor BUN/creatinine and electrolytes 4. Uncontrolled diabetes BS on admission 500, Hemoglobin A1c 16 Family reports compliance with insulin; ? issues with absorption; changing administration site Accu-Cheks and SSI to assess insulin requirements 5. CAD With history of acute [place] On beta dinesh, aspirin and statin; not on BRANDON inhibitor likely secondary to chronic kidney disease 6. Hypertension BB controlled on Coreg, amlodipine, hydralazine 7. Diastolic CHF On beta dinesh and diuretic (Lasix) Not an BRANDON inhibitor likely secondary to chronic kidney disease Need to hold Lasix due to worsening renal function Monitor I&O 8. Hyperlipidemia On statin 9. Gout Continue colchicine 10. Thrombocytopenia If further decrease, will hold heparin and obtain HIT panel 11. DVT prophylaxis Heparin subcutaneous; monitoring platelets History Interval history: alert, with no specific complaints family asked the nurse multiple times to give her pain control meds just to be sure "she is comfortable"; I explained to them the side effects of narcotics some of them are reasonable, some are not; usually there are at least 6-8 family members in her room Hospitalist Physical - Constitutional Vitals: Temp Pulse Resp BP Pulse Ox 97.9 F 100 H 18 104/58 96 05/07/16 08:00 05/07/16 08:00 05/07/16 08:00 05/07/16 08:00 05/07/16 08:39 General appearance: Present: no acute distress, obese (morbidly) - EENT Eyes: Present: PERRL, EOM intact. Absent: scleral icterus, conjunctival injection ENT: poor dentition - Neck Neck: Present: supple. Absent: enlarged thyroid, masses or JVD - Respiratory Respiratory effort: normal Respiratory: bilateral: diminished, negative: rhonchi, wheezing - Cardiovascular Rhythm: regular Heart Sounds: Present: S1 & S2. Absent: systolic murmur - Extremities Extremities: no ischemia Extremity abnormal: edema - Abdominal General gastrointestinal: soft, non-tender, non-distended, normal bowel sounds - Integumentary Integumentary: Present: warm, dry. Absent: jaundice, rash - Psychiatric Psychiatric: cooperative - Neurologic Neurologic: moves all extremities Results - Labs CBC & Chem 7: 05/07/16 07:36 05/07/16 07:36 Labs: Laboratory Last Values WBC 9.4 K/mm3 (4.5-11.0) 05/07/16 07:36 RBC 3.21 M/mm3 (3.65-5.03) L 05/07/16 07:36 Hgb 8.9 gm/dl (10.1-14.3) L 05/07/16 07:36 Hct 27.6 % (30.3-42.9) L 05/07/16 07:36 MCV 86 fl (79-97) 05/07/16 07:36 MCH 28 pg (28-32) 05/07/16 07:36 MCHC 32 % (30-34) 05/07/16 07:36 RDW 17.7 % (13.2-15.2) H 05/07/16 07:36 Plt Count 99 K/mm3 (140-440) L 05/07/16 07:36 Add Manual Diff Complete 05/07/16 07:36 Total Counted 100 05/07/16 07:36 Seg Neutrophils % Pediatric Medical Assistant 05/07/16 07:36 Seg Neuts % (Manual) 89.0 % (40.0-70.0) H 05/07/16 07:36 Band Neutrophils % 3.0 % 05/07/16 07:36 Lymphocytes % (Manual) 7.0 % (13.4-35.0) L 05/07/16 07:36 Reactive Lymphs % (Man) 0 % 05/07/16 07:36 Monocytes % (Manual) 1.0 % (0.0-7.3) 05/07/16 07:36 Eosinophils % (Manual) 0 % (0.0-4.3) 05/07/16 07:36 Basophils % (Manual) 0 % (0.0-1.8) 05/06/16 08:32 Metamyelocytes % 0 % 05/07/16 07:36 Myelocytes % 0 % 05/07/16 07:36 Promyelocytes % 0 % 05/07/16 07:36 Blast Cells % 0 % 05/07/16 07:36 Nucleated RBC % Not Reportable 05/07/16 07:36 Seg Neutrophils # Man 8.4 K/mm3 (1.8-7.7) H 05/07/16 07:36 Band Neutrophils # 0.3 K/mm3 05/07/16 07:36 Lymphocytes # (Manual) 0.7 K/mm3 (1.2-5.4) L 05/07/16 07:36 Abs React Lymphs (Man) 0.0 K/mm3 05/07/16 07:36 Monocytes # (Manual) 0.1 K/mm3 (0.0-0.8) 05/07/16 07:36 Eosinophils # (Manual) 0.0 K/mm3 (0.0-0.4) 05/07/16 07:36 Basophils # (Manual) 0.0 K/mm3 (0.0-0.1) 05/07/16 07:36 Metamyelocytes # 0.0 K/mm3 05/07/16 07:36 Myelocytes # 0.0 K/mm3 05/07/16 07:36 Promyelocytes # 0.0 K/mm3 05/07/16 07:36 Blast Cells # 0.0 K/mm3 05/07/16 07:36 WBC Morphology Not Reportable 05/07/16 07:36 Hypersegmented Neuts Not Reportable 05/07/16 07:36 Hyposegmented Neuts Not Reportable 05/07/16 07:36 Hypogranular Neuts Not Reportable 05/07/16 07:36 Smudge Cells Not Reportable 05/07/16 07:36 Toxic Granulation Not Reportable 05/07/16 07:36 Toxic Vacuolation Not Reportable 05/07/16 07:36 Dohle Bodies Not Reportable 05/07/16 07:36 Pelger-Huet Anomaly Not Reportable 05/07/16 07:36 Zenon Rods Not Reportable 05/07/16 07:36 Platelet Estimate Appears normal 05/07/16 07:36 Clumped Platelets Not Reportable 05/07/16 07:36 Plt Clumps, EDTA Not Reportable 05/07/16 07:36 Large Platelets Not Reportable 05/07/16 07:36 Giant Platelets Not Reportable 05/07/16 07:36 Platelet Satelliting Not Reportable 05/07/16 07:36 Plt Morphology Comment Not Reportable 05/07/16 07:36 RBC Morphology Not Reportable 05/07/16 07:36 Dimorphic RBCs Not Reportable 05/07/16 07:36 Polychromasia Few 05/07/16 07:36 Hypochromasia Not Reportable 05/07/16 07:36 Poikilocytosis 1+ 05/07/16 07:36 Anisocytosis 1+ 05/07/16 07:36 Microcytosis Not Reportable 05/07/16 07:36 Macrocytosis Not Reportable 05/07/16 07:36 Spherocytes Not Reportable 05/07/16 07:36 Pappenheimer Bodies Not Reportable 05/07/16 07:36 Sickle Cells Not Reportable 05/07/16 07:36 Target Cells Not Reportable 05/07/16 07:36 Tear Drop Cells 1+ 05/07/16 07:36 Ovalocytes 1+ 05/07/16 07:36 Helmet Cells Rare 05/07/16 07:36 Osborne-Mccaskill Bodies Not Reportable 05/07/16 07:36 [place] Rings Not Reportable 05/07/16 07:36 [place] Cells Rare 05/07/16 07:36 Bite Cells Not Reportable 05/07/16 07:36 Crenated Cell Not Reportable 05/07/16 07:36 Elliptocytes Not Reportable 05/07/16 07:36 Acanthocytes (Spur) Not Reportable 05/07/16 07:36 Rouleaux Not Reportable 05/07/16 07:36 Hemoglobin C Crystals Not Reportable 05/07/16 07:36 Schistocytes Not Reportable 05/07/16 07:36 Malaria parasites Not Reportable 05/07/16 07:36 Tulio Bodies Not Reportable 05/07/16 07:36 Hem Pathologist Commnt No 05/07/16 07:36 VBG pH 7.394 (7.320-7.420) 05/03/16 23:25 Sodium 138 mmol/L (137-145) 05/07/16 07:36 Potassium 4.5 mmol/L (3.6-5.0) 05/07/16 07:36 Chloride 96.4 mmol/L (98-107) L 05/07/16 07:36 Carbon Dioxide 21 mmol/L (22-30) L 05/07/16 07:36 Anion Gap 25 mmol/L 05/07/16 07:36 BUN 81 mg/dL (7-17) H 05/07/16 07:36 Creatinine 3.9 mg/dL (0.7-1.2) H 05/07/16 07:36 Estimated GFR 13 ml/min 05/07/16 07:36 BUN/Creatinine Ratio 20.76 % 05/07/16 07:36 Glucose 110 mg/dL (65-100) H 05/07/16 07:36 POC Glucose 85 (70-105) 05/07/16 16:50 Hemoglobin A1c 16.6 % (4-6) H 05/04/16 04:37 Osmolality 319 Mosm/kg 05/03/16 22:27 Lactic Acid 3.4 mmol/L (0.7-2.0) H* 05/05/16 06:18 Calcium 7.2 mg/dL (8.4-10.2) L 05/07/16 07:36 Phosphorus 6.6 mg/dL (2.5-4.5) H 05/07/16 07:36 Magnesium 1.6 mg/dL (1.7-2.3) L 05/07/16 07:36 Total Bilirubin 0.4 mg/dL (0.1-1.2) 05/03/16 22:27 AST 262 units/L (5-40) H 05/03/16 22:27 ALT 82 units/L (7-56) H 05/03/16 22:27 Alkaline Phosphatase 138 units/L (35-129) H 05/03/16 22:27 Total Creatine Kinase 34 units/L (30-135) 05/03/16 22:27 Total Protein 6.3 g/dL (6.3-8.2) 05/03/16 22:27 Albumin 3.0 g/dL (3.9-5) L 05/03/16 22:27 Albumin/Globulin Ratio 0.9 % 05/03/16 22:27 Triglycerides 66 mg/dL (2-149) 05/04/16 04:37 Cholesterol 161 mg/dL (50-199) 05/04/16 04:37 LDL Cholesterol Direct 33 mg/dL (50-130) L 05/04/16 04:37 HDL Cholesterol 115 mg/dL (40-59) H 05/04/16 04:37 Cholesterol/HDL Ratio 1.40 % 05/04/16 04:37 TSH 3.830 mlU/mL (0.270-4.200) 05/03/16 22:27 Urine Color Yellow (Yellow) 05/03/16 22:39 Urine Turbidity Slightly-cloudy (Clear) 05/03/16 22:39 Urine pH 6.0 (5.0-7.0) 05/03/16 22:39 Ur Specific [place] 1.011 (1.003-1.030) 05/03/16 22:39 Urine Protein 100 mg/dl mg/dL (Negative) 05/03/16 22:39 Urine Glucose (UA) >=500 mg/dL (Negative) 05/03/16 22:39 Urine Ketones Neg mg/dL (Negative) 05/03/16 22:39 Urine Blood Lg (Negative) 05/03/16 22:39 Urine Nitrite Neg (Negative) 05/03/16 22:39 Urine Bilirubin Neg (Negative) 05/03/16 22:39 Urine Urobilinogen < 2.0 mg/dL (<2.0) 05/03/16 22:39 Ur Leukocyte Esterase Lg (Negative) 05/03/16 22:39 Urine WBC (Auto) 108.0 /HPF (0.0-6.0) H 05/03/16 22:39 Urine RBC (Auto) 28.0 /HPF (0.0-6.0) 05/03/16 22:39 U Epithel Cells (Auto) < 1.0 /HPF (0-13.0) 05/03/16 22:39 Urine Bacteria (Auto) 2+ /HPF (Negative) 05/03/16 22:39 Urine Mucus Few /HPF 05/03/16 22:39 Urine Yeast (Budding) 1+ /HPF 05/03/16 22:39 Ketones 1.0 mg/dL (0.2-2.8) 05/03/16 23:25
--- NOTE | 2016-05-07 19:47 | Consultation ---
History of Present Illness - Reason for Consult Consult date: 05/07/16 - History of Present Illness Patient seen, examined, labs reviewed, case d/w patient and her family at the bed side. Past History Past Medical History: acute [place], anemia, COPD, diabetes, hypertension, renal failure Past Surgical History: appendectomy, Other (cardiac stent) Social history: , lives with family. denies: smoking, alcohol abuse, prescription drug abuse Family history: diabetes, hypertension Medications and Allergies Allergies Allergy/AdvReac Type Severity Reaction Status Date / Time No Known Allergies Allergy Verified 09/13/14 17:59 Home Medications Medication Instructions Recorded Confirmed Last Taken Type Aspirin [Aspirin BABY CHEW TAB] 81 mg PO QDAY 10/25/13 10/09/15 09/13/14 History Carvedilol [Coreg] 12.5 mg PO BID 10/25/13 10/09/15 09/13/14 History Citalopram [Celexa] 20 mg PO QDAY 10/25/13 10/09/15 09/13/14 History Esomeprazole Magnesium [NexIUM] 40 mg PO BID 10/25/13 10/09/15 09/13/14 History Gabapentin 300 mg PO TID 10/25/13 10/09/15 09/13/14 History Hydralazine HCl [hydrALAZINE] 100 mg PO TID 10/25/13 10/09/15 09/13/14 History Insulin Aspart [NovoLOG 100 10 unit SQ ACHS 01/26/14 10/09/15 09/13/14 History UNITS/ML VIAL] Insulin Glargine,Hum.rec.anlog 30 units SQ QHS 01/26/14 10/09/15 09/13/14 History [Lantus] Oxycodone HCl/Acetaminophen 5 each PO BID PRN 04/09/14 05/07/16 09/13/14 History [OxyCODONE-Acetaminophen 2.5-325 mg] Colchicine 0.6 mg PO BID 10/09/15 10/09/15 Unknown History Cyclobenzaprine HCl [Flexeril 5 MG 5 mg PO BID 10/09/15 10/09/15 Unknown History TAB] Furosemide [Lasix TAB] 40 mg PO QDAY 10/09/15 10/09/15 Unknown History Ramelteon [Rozerem] 8 mg PO DAILY 10/09/15 10/09/15 Unknown History Simvastatin [Zocor TAB] 20 mg PO QHS MDD 1 tab 10/09/15 10/09/15 05/03/16 History amLODIPine [Norvasc] 5 mg PO DAILY 10/09/15 10/09/15 05/03/16 History Active Meds: Active Medications Acetaminophen (Tylenol) 650 mg NM Q8H PRN PRN Reason: Pain, Mild (1-3) Last Admin: 05/07/16 05:23 Dose: 650 mg Amlodipine Besylate (Norvasc) 10 mg PO DAILY [facility] Last Admin: 05/07/16 13:06 Dose: Not Given Aspirin (Baby Aspirin) 81 mg PO QDAY [facility] Last Admin: 05/07/16 13:08 Dose: Not Given Carvedilol (Coreg) 12.5 mg PO BID [facility] Last Admin: 05/07/16 13:06 Dose: Not Given Colchicine (Colcrys) 0.6 mg PO BID [facility] Last Admin: 05/07/16 13:06 Dose: Not Given Dextrose (D50w (25gm)) 50 ml IV PRN PRN PRN Reason: Hypoglycemia Gabapentin (Neurontin) 300 mg PO TID [facility] Last Admin: 05/07/16 18:40 Dose: Not Given Heparin Sodium (Porcine) (Heparin) 5,000 unit SUB-Q Q8HR [facility] Last Admin: 05/07/16 18:14 Dose: 5,000 unit Hydralazine HCl (Apresoline) 100 mg PO TID [facility] Last Admin: 05/07/16 18:40 Dose: Not Given Cefepime HCl (Maxipime/Ns 1 Gm/100 Ml) 100 mls @ 200 mls/hr IV Q24HR [facility] PRN Reason: Protocol Last Admin: 05/07/16 13:14 Dose: 200 mls/hr Levofloxacin/Dextrose (Levaquin 750mg/150ml) 150 mls @ 100 mls/hr IV Q48HR [facility] PRN Reason: Protocol Sodium Chloride (Nacl 0.9% 500 Ml) 500 mls @ 50 mls/hr IV DIRECT [facility] Insulin Aspart (Novolog) 0 units SUB-Q Q6HR [facility] PRN Reason: Protocol Last Admin: 05/07/16 18:42 Dose: Not Given Insulin Detemir (Levemir) 30 units SUB-Q QHS [facility] Last Admin: 05/06/16 23:00 Dose: 30 units Lidocaine HCl (Magic Mouthwash) 15 ml PO TID [facility] Last Admin: 05/07/16 18:40 Dose: Not Given Oxycodone/Acetaminophen (Percocet 5/325) 1 tab PO Q6H PRN PRN Reason: Pain, Moderate (4-6) Simvastatin (Zocor) 20 mg PO QHS [facility] Last Admin: 05/07/16 00:08 Dose: Not Given Review of Systems Constitutional: fatigue, weakness, chronic pain Breasts: deferred Cardiovascular: dyspnea on exertion Respiratory: dyspnea on exertion Musculoskeletal: low back pain Exam - Constitutional Vitals: Temp Pulse Resp BP Pulse Ox 97.9 F 100 H 18 104/58 96 05/07/16 08:00 05/07/16 08:00 05/07/16 08:00 05/07/16 08:00 05/07/16 08:39 General appearance: Present: mild distress, well-nourished - EENT Eyes: Present: PERRL ENT: hearing intact, clear oral mucosa - Neck Neck: Present: supple, normal ROM - Respiratory Respiratory: bilateral: rhonchi - Cardiovascular Heart Sounds: Present: S1 & S2. Absent: rub, click - Extremities Extremities: pulses symmetrical, No edema Peripheral Pulses: within normal limits - Abdominal General gastrointestinal: Present: soft, non-tender, non-distended, normal bowel sounds Female genitourinary: Present: deferred - Rectal Rectal Exam: deferred - Integumentary Integumentary: Present: clear, warm, dry - Psychiatric Psychiatric: appropriate mood/affect - Neurologic Neurologic: CNII-XII intact Results - Labs CBC & Chem 7: 05/07/16 07:36 05/07/16 07:36 Labs: Abnormal lab results 05/06/16 05/06/16 05/06/16 Range/Units 11:59 17:16 22:59 RBC (3.65-5.03) M/mm3 Hgb (10.1-14.3) gm/dl Hct (30.3-42.9) % RDW (13.2-15.2) % Plt Count (140-440) K/mm3 Seg Neuts % (Manual) (40.0-70.0) % Lymphocytes % (Manual) (13.4-35.0) % Seg Neutrophils # Man (1.8-7.7) K/mm3 Lymphocytes # (Manual) (1.2-5.4) K/mm3 Chloride (98-107) mmol/L Carbon Dioxide (22-30) mmol/L BUN (7-17) mg/dL Creatinine (0.7-1.2) mg/dL Glucose (65-100) mg/dL POC Glucose 190 H 159 H 144 H (70-105) Calcium (8.4-10.2) mg/dL Phosphorus (2.5-4.5) mg/dL Magnesium (1.7-2.3) mg/dL 05/07/16 05/07/16 05/07/16 Range/Units 05:57 07:36 07:36 RBC 3.21 L (3.65-5.03) M/mm3 Hgb 8.9 L (10.1-14.3) gm/dl Hct 27.6 L (30.3-42.9) % RDW 17.7 H (13.2-15.2) % Plt Count 99 L (140-440) K/mm3 Seg Neuts % (Manual) 89.0 H (40.0-70.0) % Lymphocytes % (Manual) 7.0 L (13.4-35.0) % Seg Neutrophils # Man 8.4 H (1.8-7.7) K/mm3 Lymphocytes # (Manual) 0.7 L (1.2-5.4) K/mm3 Chloride 96.4 L (98-107) mmol/L Carbon Dioxide 21 L (22-30) mmol/L BUN 81 H (7-17) mg/dL Creatinine 3.9 H (0.7-1.2) mg/dL Glucose 110 H (65-100) mg/dL POC Glucose 125 H (70-105) Calcium 7.2 L (8.4-10.2) mg/dL Phosphorus 6.6 H (2.5-4.5) mg/dL Magnesium 1.6 L (1.7-2.3) mg/dL Assessment and Plan - Patient Problems (1) Chronic pain Current Visit: Yes Status: Acute Qualifiers: Chronic pain type: other chronic pain Qualified Code(s): G89.29 - Other chronic pain Plan to address problem: safe pain control. same as above. Patient is on adequate oral pain control. (2) Debility Current Visit: Yes Status: Acute Plan to address problem: Will need supportive care, with Therapy.physically. same as above. She may benefit from, PT/OT in bed. (3) Uncontrolled diabetes mellitus Current Visit: Yes Status: Acute Qualifiers: Diabetes mellitus type: type 2 Diabetes mellitus complication status: with hyperglycemia Qualified Code(s): E10.65 - Type 1 diabetes mellitus with hyperglycemia Plan to address problem: This was initially in part due to chronic steroid use.Will need tighter BG control. (4) CKD (chronic kidney disease), stage II Current Visit: Yes Status: Chronic Plan to address problem: deffer to the renal service. (5) Anemia Current Visit: Yes Status: Acute Qualifiers: Qualified Code(s): D63.8 - Anemia in other chronic diseases classified elsewhere Plan to address problem: lab monitoring, treating the underlying problem.ie CKD. (6) Sepsis Current Visit: Yes Status: Acute Qualifiers: Qualified Code(s): A41.9 - Sepsis, unspecified organism Plan to address problem: due to uti,most likely multi organism. continue with IV abx, and await C/S. improving.
[2016-05-07] MEDS: PERCOCET 5/325 PO PRN (21:59)
[2016-05-07] MEDS: LEVEMIR SUB-Q SCH (22:21)
[2016-05-08] MEDS: NOVOLOG SUB-Q SCH ×4 (02:04→20:33)
[2016-05-08] MEDS: HEPARIN SUB-Q SCH ×2 (05:46→14:11)
[2016-05-08 09:18] LABS: Basophils % (Auto) 0.3 % (0.0-1.8); Eosinophils % (Auto) 1.4 % (0.0-4.3); Mean Corpuscular HGB Conc 29 % (30-34); Mean Corpuscular Hemoglobin 27 pg (28-32); Mean Corpuscular Volume 94 fl (79-97); Red Blood Count 3.52 M/mm3 (3.65-5.03); Red Cell Distribution Width 18.9 % (13.2-15.2); White Blood Count 4.4 K/mm3 (4.5-11.0)
[2016-05-08 09:19] LABS: Hematocrit 33.1 % (30.3-42.9); Hemoglobin 9.6 gm/dl (10.1-14.3); Platelet Count 72 K/mm3 (140-440)
[2016-05-08 09:36] LABS: BUN/Creatinine Ratio 21.31; Calcium 6.9 mg/dL (8.4-10.2); Chloride 93.4 mmol/L (98-107); Potassium 4.8 mmol/L (3.6-5.0)
[2016-05-08] MEDS: COLCRYS PO SCH (10:00)
[2016-05-08] MEDS ORDERED: LEVAQUIN 750MG/150ML 150 ML IV SCH (10:00)
[2016-05-08] MEDS: COREG PO SCH ×2 (10:00→22:04)
--- NOTE | 2016-05-08 10:39 | Consultation ---
History of Present Illness - Reason for Consult Consult date: 05/08/16 - History of Present Illness Patient seen/examined, labs reviewed, case reviewed. No new issues.PLT now 72, a drop. will look in to this. Past History Past Medical History: acute [place], anemia, COPD, diabetes, hypertension, renal failure Past Surgical History: appendectomy, Other (cardiac stent) Social history: , lives with family. denies: smoking, alcohol abuse, prescription drug abuse Family history: diabetes, hypertension Medications and Allergies Allergies Allergy/AdvReac Type Severity Reaction Status Date / Time No Known Allergies Allergy Verified 09/13/14 17:59 Home Medications Medication Instructions Recorded Confirmed Last Taken Type Aspirin [Aspirin BABY CHEW TAB] 81 mg PO QDAY 10/25/13 10/09/15 09/13/14 History Carvedilol [Coreg] 12.5 mg PO BID 10/25/13 10/09/15 09/13/14 History Citalopram [Celexa] 20 mg PO QDAY 10/25/13 10/09/15 09/13/14 History Esomeprazole Magnesium [NexIUM] 40 mg PO BID 10/25/13 10/09/15 09/13/14 History Gabapentin 300 mg PO TID 10/25/13 10/09/15 09/13/14 History Hydralazine HCl [hydrALAZINE] 100 mg PO TID 10/25/13 10/09/15 09/13/14 History Insulin Aspart [NovoLOG 100 10 unit SQ ACHS 01/26/14 10/09/15 09/13/14 History UNITS/ML VIAL] Insulin Glargine,Hum.rec.anlog 30 units SQ QHS 01/26/14 10/09/15 09/13/14 History [Lantus] Oxycodone HCl/Acetaminophen 5 each PO BID PRN 04/09/14 05/07/16 09/13/14 History [OxyCODONE-Acetaminophen 2.5-325 mg] Colchicine 0.6 mg PO BID 10/09/15 10/09/15 Unknown History Cyclobenzaprine HCl [Flexeril 5 MG 5 mg PO BID 10/09/15 10/09/15 Unknown History TAB] Furosemide [Lasix TAB] 40 mg PO QDAY 10/09/15 10/09/15 Unknown History Ramelteon [Rozerem] 8 mg PO DAILY 10/09/15 10/09/15 Unknown History Simvastatin [Zocor TAB] 20 mg PO QHS MDD 1 tab 10/09/15 10/09/15 05/03/16 History amLODIPine [Norvasc] 5 mg PO DAILY 10/09/15 10/09/15 05/03/16 History Active Meds: Active Medications Acetaminophen (Tylenol) 650 mg [place] Q8H PRN PRN Reason: Pain, Mild (1-3) Last Admin: 05/07/16 05:23 Dose: 650 mg Amlodipine Besylate (Norvasc) 10 mg PO DAILY [facility] Last Admin: 05/07/16 13:06 Dose: Not Given Aspirin (Baby Aspirin) 81 mg PO QDAY [facility] [place] Last Admin: 05/07/16 13:08 Dose: Not Given Carvedilol (Coreg) 12.5 mg PO BID [facility] [place] Last Admin: 05/07/16 21:22 Dose: Not Given Colchicine (Colcrys) 0.6 mg PO BID [facility] [place] Last Admin: 05/07/16 22:17 Dose: Not Given Dextrose (D50w (25gm)) 50 ml IV PRN PRN PRN Reason: Hypoglycemia Gabapentin (Neurontin) 300 mg PO TID [facility] [place] Last Admin: 05/07/16 21:58 Dose: 300 mg Heparin Sodium (Porcine) (Heparin) 5,000 unit SUB-Q Q8HR [facility] [place] Last Admin: 05/08/16 05:46 Dose: Not Given Hydralazine HCl (Apresoline) 100 mg PO TID [facility] [place] Last Admin: 05/07/16 20:21 Dose: Not Given Cefepime HCl (Maxipime/Ns 1 Gm/100 Ml) 100 mls @ 200 mls/hr IV Q24HR [facility] [place] PRN Reason: Protocol Last Admin: 05/07/16 13:14 Dose: 200 mls/hr Levofloxacin/Dextrose (Levaquin 750mg/150ml) 150 mls @ 100 mls/hr IV Q48HR [facility] [place] PRN Reason: Protocol Sodium Chloride (Nacl 0.9% 500 Ml) 500 mls @ 50 mls/hr IV DIRECT [facility] Insulin Aspart (Novolog) 0 units SUB-Q Q6HR [facility] [place] PRN Reason: Protocol Last Admin: 05/08/16 06:44 Dose: Not Given Insulin Detemir (Levemir) 30 units SUB-Q QHS [facility] [place] Last Admin: 05/07/16 22:21 Dose: Not Given Lidocaine HCl (Magic Mouthwash) 15 ml PO TID [facility] [place] [place] Last Admin: 05/07/16 22:20 Dose: Not Given Oxycodone/Acetaminophen (Percocet 5/325) 1 tab PO Q6H PRN PRN Reason: Pain, Moderate (4-6) Last Admin: 05/07/16 21:59 Dose: 1 tab Simvastatin (Zocor) 20 mg PO QHS [facility] [place] Last Admin: 05/07/16 22:00 Dose: 20 mg Review of Systems Constitutional: fatigue, weakness Breasts: deferred Respiratory: dyspnea on exertion Exam - Constitutional Vitals: Temp Pulse Resp BP Pulse Ox 97.9 F 74 18 96/54 99 05/08/16 08:00 05/08/16 08:00 05/08/16 08:00 05/08/16 08:00 05/08/16 09:30 General appearance: Present: mild distress, well-nourished - EENT Eyes: Present: PERRL ENT: hearing intact, clear oral mucosa - Neck Neck: Present: supple, normal ROM - Respiratory Respiratory: bilateral: rhonchi - Cardiovascular Heart Sounds: Present: S1 & S2. Absent: rub, click - Extremities Extremities: pulses symmetrical, No edema Peripheral Pulses: within normal limits - Abdominal General gastrointestinal: Present: soft, non-tender, non-distended, normal bowel sounds Female genitourinary: Present: deferred - Rectal Rectal Exam: deferred - Integumentary Integumentary: Present: clear, warm, dry - Musculoskeletal Musculoskeletal: gait normal, strength equal bilaterally - Psychiatric Psychiatric: appropriate mood/affect - Neurologic Neurologic: moves all extremities Results - Labs CBC & Chem 7: 05/08/16 08:45 05/08/16 08:45 Labs: Abnormal lab results 05/07/16 05/08/16 05/08/16 Range/Units 07:36 08:45 08:45 WBC 4.4 L (4.5-11.0) K/mm3 RBC 3.52 L (3.65-5.03) M/mm3 Hgb 9.6 L (10.1-14.3) gm/dl MCH 27 L (28-32) pg MCHC 29 L (30-34) % RDW 18.9 H (13.2-15.2) % Plt Count 72 L (140-440) K/mm3 Lymph % (Auto) 11.2 L (13.4-35.0) % Lymph # 0.5 L (1.2-5.4) K/mm3 Seg Neutrophils % 81.1 H (40.0-70.0) % Seg Neuts % (Manual) 89.0 H (40.0-70.0) % Lymphocytes % (Manual) 7.0 L (13.4-35.0) % Seg Neutrophils # Man 8.4 H (1.8-7.7) K/mm3 Lymphocytes # (Manual) 0.7 L (1.2-5.4) K/mm3 Sodium 130 L D (137-145) mmol/L Chloride 93.4 L (98-107) mmol/L Carbon Dioxide 16 L (22-30) mmol/L BUN 81 H (7-17) mg/dL Creatinine 3.8 H (0.7-1.2) mg/dL Calcium 6.9 L (8.4-10.2) mg/dL Assessment and Plan - Patient Problems (1) Chronic pain Current Visit: Yes Status: Acute Qualifiers: Chronic pain type: other chronic pain Qualified Code(s): G89.29 - Other chronic pain Plan to address problem: safe pain control. same as above. Patient is on adequate oral pain control. (2) Debility Current Visit: Yes Status: Acute Plan to address problem: Will need supportive care, with Therapy.physically. same as above. She may benefit from, PT/OT in bed. (3) Uncontrolled diabetes mellitus Current Visit: Yes Status: Acute Qualifiers: Diabetes mellitus type: type 2 Diabetes mellitus complication status: with hyperglycemia Qualified Code(s): E10.65 - Type 1 diabetes mellitus with hyperglycemia Plan to address problem: This was initially in part due to chronic steroid use.Will need tighter BG control. (4) CKD (chronic kidney disease), stage II Current Visit: Yes Status: Chronic Plan to address problem: deffer to the renal service. (5) Anemia Current Visit: Yes Status: Acute Qualifiers: Qualified Code(s): D63.8 - Anemia in other chronic diseases classified elsewhere Plan to address problem: lab monitoring, treating the underlying problem.ie CKD. Still stable. (6) Sepsis Current Visit: Yes Status: Acute Qualifiers: Qualified Code(s): A41.9 - Sepsis, unspecified organism Plan to address problem: due to uti,most likely multi organism. continue with IV abx, and await C/S. improving. (7) Thrombocytopenia Current Visit: Yes Status: Acute Plan to address problem: Will do w/up.
[2016-05-08] MEDS: PERCOCET 5/325 PO PRN ×2 (11:47→18:41)
[2016-05-08] MEDS: MAXIPIME/NS 1 GM/100 ML 100 ML IV SCH (11:57)
[2016-05-08] MEDS: APRESOLINE PO SCH (16:44)
[2016-05-08] MEDS: NEURONTIN PO SCH ×3 (16:45→22:23)
[2016-05-08] MEDS: MAGIC MOUTHWASH PO SCH ×3 (16:45→22:22)
[2016-05-08] MEDS: BABY ASPIRIN PO SCH (16:45)
--- NOTE | 2016-05-08 18:03 | Progress Note ---
Assessment and Plan Assessment and plan: 1. Sepsis Secondary to UTI (blood and urine cultures positive for Escherichia coli) Continue antibiotics 2. UTI Urine culture positive for Escherichia coli and another GNR; final results today with only Escherichia coli - pansensitive, so will switch antibiotics to Rocephin 3. Acute renal insufficiency superimposed on chronic kidney disease Renal function worsened, Cr about the same today, 3.8 today (1.5 for an admission) even though Lasix was held in the last 2 days Renal ultrasound with no acute findings (no obstruction, no hydronephrosis) Nephrology consulted Avoid nephrotoxins Dose medications renally Continue to monitor BUN/creatinine and electrolytes 4. Uncontrolled diabetes BS on admission 500, Hemoglobin A1c 16 Family reports compliance with insulin; ? issues with absorption; changing administration site Accu-Cheks and SSI to assess insulin requirements 5. CAD With history of acute TN On beta dinesh, aspirin and statin; not on BRANDON inhibitor likely secondary to chronic kidney disease 6. Hypertension BB controlled on Coreg, amlodipine, hydralazine 7. Diastolic CHF On beta dinesh and diuretic (Lasix) Not an BRANDON inhibitor likely secondary to chronic kidney disease Need to hold Lasix due to worsening renal function Monitor I&O 8. Hyperlipidemia On statin 9. Gout Continue colchicine 10. Thrombocytopenia Further decrease today Will hold heparin and obtain HIT panel 11. DVT prophylaxis SCDs History Interval history: Awake, alert, doing well, no complaints Multiple family members in the room as usually Hospitalist Physical - Constitutional Vitals: Temp Pulse Resp BP Pulse Ox 97.9 F 74 18 96/54 99 05/08/16 08:00 05/08/16 08:00 05/08/16 08:00 05/08/16 08:00 05/08/16 09:30 General appearance: Present: no acute distress, obese (morbidly) - Neck Neck: Present: supple, normal ROM. Absent: masses or JVD - Respiratory Respiratory effort: normal Respiratory: bilateral: diminished, negative: rales, rhonchi, wheezing - Cardiovascular Rhythm: regular Heart Sounds: Present: S1 & S2. Absent: systolic murmur - Extremities Extremities: no ischemia Extremity abnormal: edema - Abdominal General gastrointestinal: soft, non-tender, non-distended, normal bowel sounds - Integumentary Integumentary: Present: warm, dry. Absent: jaundice, rash - Psychiatric Psychiatric: cooperative - Neurologic Neurologic: CNII-XII intact, no focal deficits Results - Labs CBC & Chem 7: 05/08/16 08:45 05/08/16 08:45 Labs: Laboratory Last Values WBC 4.4 K/mm3 (4.5-11.0) L 05/08/16 08:45 RBC 3.52 M/mm3 (3.65-5.03) L 05/08/16 08:45 Hgb 9.6 gm/dl (10.1-14.3) L 05/08/16 08:45 Hct 33.1 % (30.3-42.9) 05/08/16 08:45 MCV 94 fl (79-97) D 05/08/16 08:45 MCH 27 pg (28-32) L 05/08/16 08:45 MCHC 29 % (30-34) L 05/08/16 08:45 RDW 18.9 % (13.2-15.2) H 05/08/16 08:45 Plt Count 72 K/mm3 (140-440) L 05/08/16 08:45 Lymph % (Auto) 11.2 % (13.4-35.0) L 05/08/16 08:45 [place] % (Auto) 6.0 % (0.0-7.3) 05/08/16 08:45 Eos % (Auto) 1.4 % (0.0-4.3) 05/08/16 08:45 Baso % (Auto) 0.3 % (0.0-1.8) 05/08/16 08:45 Lymph # 0.5 K/mm3 (1.2-5.4) L 05/08/16 08:45 [place] # 0.3 K/mm3 (0.0-0.8) 05/08/16 08:45 Eos # 0.1 K/mm3 (0.0-0.4) 05/08/16 08:45 Baso # 0.0 K/mm3 (0.0-0.1) 05/08/16 08:45 Add Manual Diff Complete 05/07/16 07:36 Total Counted 100 05/07/16 07:36 Seg Neutrophils % 81.1 % (40.0-70.0) H 05/08/16 08:45 Seg Neuts % (Manual) 89.0 % (40.0-70.0) H 05/07/16 07:36 Band Neutrophils % 3.0 % 05/07/16 07:36 Lymphocytes % (Manual) 7.0 % (13.4-35.0) L 05/07/16 07:36 Reactive Lymphs % (Man) 0 % 05/07/16 07:36 Monocytes % (Manual) 1.0 % (0.0-7.3) 05/07/16 07:36 Eosinophils % (Manual) 0 % (0.0-4.3) 05/07/16 07:36 Basophils % (Manual) 0 % (0.0-1.8) 05/06/16 08:32 Metamyelocytes % 0 % 05/07/16 07:36 Myelocytes % 0 % 05/07/16 07:36 Promyelocytes % 0 % 05/07/16 07:36 Blast Cells % 0 % 05/07/16 07:36 Nucleated RBC % Not Reportable 05/07/16 07:36 Seg Neutrophils # 3.6 K/mm3 (1.8-7.7) 05/08/16 08:45 Seg Neutrophils # Man 8.4 K/mm3 (1.8-7.7) H 05/07/16 07:36 Band Neutrophils # 0.3 K/mm3 05/07/16 07:36 Lymphocytes # (Manual) 0.7 K/mm3 (1.2-5.4) L 05/07/16 07:36 Abs React Lymphs (Man) 0.0 K/mm3 05/07/16 07:36 Monocytes # (Manual) 0.1 K/mm3 (0.0-0.8) 05/07/16 07:36 Eosinophils # (Manual) 0.0 K/mm3 (0.0-0.4) 05/07/16 07:36 Basophils # (Manual) 0.0 K/mm3 (0.0-0.1) 05/07/16 07:36 Metamyelocytes # 0.0 K/mm3 05/07/16 07:36 Myelocytes # 0.0 K/mm3 05/07/16 07:36 Promyelocytes # 0.0 K/mm3 05/07/16 07:36 Blast Cells # 0.0 K/mm3 05/07/16 07:36 WBC Morphology Not Reportable 05/07/16 07:36 Hypersegmented Neuts Not Reportable 05/07/16 07:36 Hyposegmented Neuts Not Reportable 05/07/16 07:36 Hypogranular Neuts Not Reportable 05/07/16 07:36 Smudge Cells Not Reportable 05/07/16 07:36 Toxic Granulation Not Reportable 05/07/16 07:36 Toxic Vacuolation Not Reportable 05/07/16 07:36 Dohle Bodies Not Reportable 05/07/16 07:36 Pel[place]-Huet Anomaly Not Reportable 05/07/16 07:36 [place] Rods Not Reportable 05/07/16 07:36 Platelet Estimate Appears normal 05/07/16 07:36 Clumped Platelets Not Reportable 05/07/16 07:36 Plt Clumps, EDTA Not Reportable 05/07/16 07:36 Large Platelets Not Reportable 05/07/16 07:36 Giant Platelets Not Reportable 05/07/16 07:36 Platelet Satelliting Not Reportable 05/07/16 07:36 Plt Morphology Comment Not Reportable 05/07/16 07:36 RBC Morphology Not Reportable 05/07/16 07:36 Dimorphic RBCs Not Reportable 05/07/16 07:36 Polychromasia Few 05/07/16 07:36 Hypochromasia Not Reportable 05/07/16 07:36 Poikilocytosis 1+ 05/07/16 07:36 Anisocytosis 1+ 05/07/16 07:36 Microcytosis Not Reportable 05/07/16 07:36 Macrocytosis Not Reportable 05/07/16 07:36 Spherocytes Not Reportable 05/07/16 07:36 Pappenheimer Bodies Not Reportable 05/07/16 07:36 Sickle Cells Not Reportable 05/07/16 07:36 Target Cells Not Reportable 05/07/16 07:36 Tear Drop Cells 1+ 05/07/16 07:36 Ovalocytes 1+ 05/07/16 07:36 Helmet Cells Rare 05/07/16 07:36 [place] Bodies Not Reportable 05/07/16 07:36 [place] Rings Not Reportable 05/07/16 07:36 [place] Cells Rare 05/07/16 07:36 Bite Cells Not Reportable 05/07/16 07:36 Crenated Cell Not Reportable 05/07/16 07:36 Elliptocytes Not Reportable 05/07/16 07:36 Acanthocytes (Spur) Not Reportable 05/07/16 07:36 Rouleaux Not Reportable 05/07/16 07:36 Hemoglobin C Crystals Not Reportable 05/07/16 07:36 Schistocytes Not Reportable 05/07/16 07:36 Malaria parasites Not Reportable 05/07/16 07:36 ESR > 140.0 mm/Hr (0-20) 05/08/16 15:00 [place] Bodies Not Reportable 05/07/16 07:36 Hem Pathologist Commnt No 05/07/16 07:36 Fibrinogen 1166 mg/dl (211-480) H 05/08/16 15:00 D-Dimer 4592.95 ng/mlDDU (0-234) H 05/08/16 15:00 VBG pH 7.394 (7.320-7.420) 05/03/16 23:25 Sodium 130 mmol/L (137-145) L D 05/08/16 08:45 Potassium 4.8 mmol/L (3.6-5.0) 05/08/16 08:45 Chloride 93.4 mmol/L (98-107) L 05/08/16 08:45 Carbon Dioxide 16 mmol/L (22-30) L 05/08/16 08:45 Anion Gap 25 mmol/L 05/08/16 08:45 BUN 81 mg/dL (7-17) H 05/08/16 08:45 Creatinine 3.8 mg/dL (0.7-1.2) H 05/08/16 08:45 Estimated GFR 14 ml/min 05/08/16 08:45 BUN/Creatinine Ratio 21.31 % 05/08/16 08:45 Glucose 76 mg/dL (65-100) 05/08/16 08:45 POC Glucose 111 (70-105) H 05/08/16 17:31 Hemoglobin A1c 16.6 % (4-6) H 05/04/16 04:37 Osmolality 319 Mosm/kg 05/03/16 22:27 Lactic Acid 3.4 mmol/L (0.7-2.0) H* 05/05/16 06:18 Calcium 6.9 mg/dL (8.4-10.2) L 05/08/16 08:45 Phosphorus 6.6 mg/dL (2.5-4.5) H 05/07/16 07:36 Magnesium 1.6 mg/dL (1.7-2.3) L 05/07/16 07:36 Total Bilirubin 0.4 mg/dL (0.1-1.2) 05/03/16 22:27 AST 262 units/L (5-40) H 05/03/16 22:27 ALT 82 units/L (7-56) H 05/03/16 22:27 Alkaline Phosphatase 138 units/L (35-129) H 05/03/16 22:27 Lactate Dehydrogenase 320 units/L (91-180) H 05/08/16 13:23 Total Creatine Kinase 34 units/L (30-135) 05/03/16 22:27 Total Protein 6.3 g/dL (6.3-8.2) 05/03/16 22:27 Albumin 3.0 g/dL (3.9-5) L 05/03/16 22:27 Albumin/Globulin Ratio 0.9 % 05/03/16 22:27 Triglycerides 66 mg/dL (2-149) 05/04/16 04:37 Cholesterol 161 mg/dL (50-199) 05/04/16 04:37 LDL Cholesterol Direct 33 mg/dL (50-130) L 05/04/16 04:37 HDL Cholesterol 115 mg/dL (40-59) H 05/04/16 04:37 Cholesterol/HDL Ratio 1.40 % 05/04/16 04:37 Vitamin B12 951.6 pg/mL (211-911) H 05/08/16 13:23 Folate 16.55 ng/mL (7.3-26.0) 05/08/16 13:23 TSH 3.830 mlU/mL (0.270-4.200) 05/03/16 22:27 Urine Color Yellow (Yellow) 05/03/16 22:39 Urine Turbidity Slightly-cloudy (Clear) 05/03/16 22:39 Urine pH 6.0 (5.0-7.0) 05/03/16 22:39 Ur Specific [place] 1.011 (1.003-1.030) 05/03/16 22:39 Urine Protein 100 mg/dl mg/dL (Negative) 05/03/16 22:39 Urine Glucose (UA) >=500 mg/dL (Negative) 05/03/16 22:39 Urine Ketones Neg mg/dL (Negative) 05/03/16 22:39 Urine Blood Lg (Negative) 05/03/16 22:39 Urine Nitrite Neg (Negative) 05/03/16 22:39 Urine Bilirubin Neg (Negative) 05/03/16 22:39 Urine Urobilinogen < 2.0 mg/dL (<2.0) 05/03/16 22:39 Ur Leukocyte Esterase Lg (Negative) 05/03/16 22:39 Urine WBC (Auto) 108.0 /HPF (0.0-6.0) H 05/03/16 22:39 Urine RBC (Auto) 28.0 /HPF (0.0-6.0) 05/03/16 22:39 U Epithel Cells (Auto) < 1.0 /HPF (0-13.0) 05/03/16 22:39 Urine Bacteria (Auto) 2+ /HPF (Negative) 05/03/16 22:39 Urine Mucus Few /HPF 05/03/16 22:39 Urine Yeast (Budding) 1+ /HPF 05/03/16 22:39 Ketones 1.0 mg/dL (0.2-2.8) 05/03/16 23:25
--- NOTE | 2016-05-08 18:05 | Consultation ---
History of Present Illness - History of Present Illness thank you for the consultation Patient was seen today at around 11:30 the morning She has been followed by Dr. Ovalle in the office but has not seen her since more than last 6 months Assessment and plan Acute renal failure in a patient whose baseline creatinine was 1.5 on May,admitted with urinary tract infection and sepsis patient mostly appears to be prerenal rule out any possibility of acute tubular necrosis due to sepsis cannot be ruled out,rule out obstruction renal prognosis guarded patient is noncompliant with follow-up in the office is advised to make an appointment upon discharge patient has been noted to have Escherichia coli urinary tract infection with sepsis, both set of blood cultures have been positive patient has also been noted to have possible hydronephrosis in the previous ultrasonogram Patient had stopped taking her diuretics for approximately one month, at present hospital with complaints of increasing shortness of breath,This was confirmed with her family member at the bedside, noted to have possible hydronephrosis on the renal ultrasonogram needs a follow-up CT scan, currently Sonogram is pending hyponatremia to monitor at this time avoid any further diuretics Metabolic acidosis; suggest checking lactic acid follow-up on labs history of hyperuricemia Renal prognosis is guarded at this time, patient's creatinine was 1.5 on May 03, 2016 evolving pancytopenia fairly rapid ; I would recommend stopping hydralazine, also would recommend stopping colchicine morbid obesity known risk factor for progression of CKD to end-stage renal disease Past History Past Medical History: acute [facility], anemia, COPD, diabetes, hypertension, renal failure Past Surgical History: appendectomy, Other (cardiac stent) Social history: , lives with family. denies: smoking, alcohol abuse, prescription drug abuse Family history: diabetes, hypertension Medications and Allergies Allergies Allergy/AdvReac Type Severity Reaction Status Date / Time No Known Allergies Allergy Verified 09/13/14 17:59 Home Medications Medication Instructions Recorded Confirmed Last Taken Type Aspirin [Aspirin BABY CHEW TAB] 81 mg PO QDAY 10/25/13 10/09/15 09/13/14 History Carvedilol [Coreg] 12.5 mg PO BID 10/25/13 10/09/15 09/13/14 History Citalopram [Celexa] 20 mg PO QDAY 10/25/13 10/09/15 09/13/14 History Esomeprazole Magnesium [NexIUM] 40 mg PO BID 10/25/13 10/09/15 09/13/14 History Gabapentin 300 mg PO TID 10/25/13 10/09/15 09/13/14 History Hydralazine HCl [hydrALAZINE] 100 mg PO TID 10/25/13 10/09/15 09/13/14 History Insulin Aspart [NovoLOG 100 10 unit SQ ACHS 01/26/14 10/09/15 09/13/14 History UNITS/ML VIAL] Insulin Glargine,Hum.rec.anlog 30 units SQ QHS 01/26/14 10/09/15 09/13/14 History [Lantus] Oxycodone HCl/Acetaminophen 5 each PO BID PRN 04/09/14 05/07/16 09/13/14 History [OxyCODONE-Acetaminophen 2.5-325 mg] Colchicine 0.6 mg PO BID 10/09/15 10/09/15 Unknown History Cyclobenzaprine HCl [Flexeril 5 MG 5 mg PO BID 10/09/15 10/09/15 Unknown History TAB] Furosemide [Lasix TAB] 40 mg PO QDAY 10/09/15 10/09/15 Unknown History Ramelteon [Rozerem] 8 mg PO DAILY 10/09/15 10/09/15 Unknown History Simvastatin [Zocor TAB] 20 mg PO QHS MDD 1 tab 10/09/15 10/09/15 05/03/16 History amLODIPine [Norvasc] 5 mg PO DAILY 10/09/15 10/09/15 05/03/16 History Active Meds: Active Medications Acetaminophen (Tylenol) 650 mg SC Q8H PRN PRN Reason: Pain, Mild (1-3) Last Admin: 05/07/16 05:23 Dose: 650 mg Amlodipine Besylate (Norvasc) 10 mg PO DAILY [facility] Last Admin: 05/07/16 13:06 Dose: Not Given Aspirin (Baby Aspirin) 81 mg PO QDAY [facility] Last Admin: 05/08/16 16:45 Dose: Not Given Carvedilol (Coreg) 12.5 mg PO BID [facility] Last Admin: 05/07/16 21:22 Dose: Not Given Colchicine (Colcrys) 0.6 mg PO BID [facility] Last Admin: 05/07/16 22:17 Dose: Not Given Dextrose (D50w (25gm)) 50 ml IV PRN PRN PRN Reason: Hypoglycemia Gabapentin (Neurontin) 300 mg PO TID [facility] Last Admin: 05/08/16 16:45 Dose: Not Given Hydralazine HCl (Apresoline) 100 mg PO TID [facility] Last Admin: 05/08/16 16:44 Dose: Not Given Sodium Chloride (Nacl 0.9% 500 Ml) 500 mls @ 50 mls/hr IV DIRECT JULIA Ceftriaxone Sodium (Rocephin/Ns 1 Gm/50 Ml) 50 mls @ 100 mls/hr IV Q24HR JULIA PRN Reason: Protocol Insulin Aspart (Novolog) 0 units SUB-Q Q6HR JULIA PRN Reason: Protocol Last Admin: 05/08/16 16:46 Dose: Not Given Insulin Detemir (Levemir) 30 units SUB-Q QHS [facility] Last Admin: 05/07/16 22:21 Dose: Not Given Lidocaine HCl (Magic Mouthwash) 15 ml PO TID [facility] Last Admin: 05/08/16 16:45 Dose: Not Given Oxycodone/Acetaminophen (Percocet 5/325) 1 tab PO Q6H PRN PRN Reason: Pain, Moderate (4-6) Last Admin: 05/08/16 11:47 Dose: 1 tab Simvastatin (Zocor) 20 mg PO QHS [facility] Last Admin: 05/07/16 22:00 Dose: 20 mg Review of Systems All systems: negative (Generalized weakness fatigue, not feeling well the last 7 -10 days has used some medication for gout but not sure currently on colchicine. ) Exam - Vital Signs Vital signs: Vital Signs Pulse Resp 106 H 15 05/03/16 21:48 05/03/16 21:48 - General Appearance General appearance: appears stated age (alert awake oriented obese female) EENT: mucous membranes moist (no pharyngeal erythema) Neck: Present: neck supple (no thyromegaly or mass or JVD) Respiratory: Clear to Ascultation (no crackles rales or wheezes today) Heart: regular (regular rate and rhythm S1-S2 heard no S3-S4 sounds are somewhat muffled due to obese chest wall) Gastrointestinal: Present: normal (obese abdomen Limited examination nontender no CVA tenderness) Integumentary: other (edema 1+ skin is dry) Neurologic: other (alert awake follows commands) Musculoskeletal: Absent: erythema Psychiatric: other Results - Lab Results 05/08/16 08:45 05/08/16 08:45 all lab reports reviewed from this admission Most recent lab results Calcium 6.9 mg/dL (8.4-10.2) L 05/08/16 08:45 Phosphorus 6.6 mg/dL (2.5-4.5) H 05/07/16 07:36 Magnesium 1.6 mg/dL (1.7-2.3) L 05/07/16 07:36
[2016-05-08] MEDS: NORVASC PO SCH (20:32)
[2016-05-08] MEDS: LEVEMIR SUB-Q SCH (22:05)
[2016-05-08] MEDS: ZOCOR PO SCH (22:23)
[2016-05-09] MEDS: NOVOLOG SUB-Q SCH ×4 (00:03→17:08)
--- NOTE | 2016-05-09 09:17 | Progress Note ---
Assessment and Plan - Patient Problems (1) Sepsis Current Visit: Yes Status: Acute Qualifiers: Qualified Code(s): A41.9 - Sepsis, unspecified organism Plan to address problem: E.coli sepsis with UTI Bacteremia (2) UTI (urinary tract infection) Current Visit: Yes Status: Acute Qualifiers: Urinary tract infection type: acute cystitis Hematuria presence: without hematuria Qualified Code(s): N30.00 - Acute cystitis without hematuria (3) Acute kidney injury superimposed on CKD Current Visit: No Status: Acute Plan to address problem: may be prerenal with underlying CKD. R/O interstitial nephritis. Renal ultrasound -no acute findings, no hydro. Continue present hydration. BUN- 78,Scr-3.6 todayDiscusseed with family about the above and treatment plan. Adjust meds per renal function. (4) Anemia Current Visit: Yes Status: Chronic Qualifiers: Qualified Code(s): D63.8 - Anemia in other chronic diseases classified elsewhere (5) Edema Current Visit: No Status: Chronic (6) Hypertension Current Visit: No Status: Chronic (7) Hypocalcemia Current Visit: Yes Status: Acute Plan to address problem: check ionised calcium, place on Calcium supplements. Mg-ok (8) Hyponatremia Current Visit: Yes Status: Acute Plan to address problem: mild- monitor-restrict free water intake (9) Metabolic acidosis Current Visit: Yes Status: Acute Plan to address problem: consider bicarb supplements if Co2 remains low (10) Chronic obstructive pulmonary disease Current Visit: No Status: Chronic (11) Uncontrolled diabetes mellitus Current Visit: Yes Status: Acute Qualifiers: Diabetes mellitus type: type 2 Diabetes mellitus complication status: with hyperglycemia Qualified Code(s): E10.65 - Type 1 diabetes mellitus with hyperglycemia Subjective Date of service: 05/09/16 Interval history: awake, C/O hurting all over. Denies CP or SOB. Family at bed side. Appeitite- not good Objective - Vital Signs Vital signs: Vital Signs - 12hr 05/08/16 05/08/16 05/09/16 21:30 23:48 05:34 Temperature 98.6 F 97.1 F L Pulse Rate [ Right Radial] Pulse Rate [ 74 73 Right] Respiratory 20 20 Rate Blood Pressure 104/58 125/62 [Right Arm] O2 Sat by Pulse 96 96 Oximetry 05/09/16 05/09/16 08:30 08:46 Temperature 98.5 F Pulse Rate [ 74 Right Radial] Pulse Rate [ Right] Respiratory 22 Rate Blood Pressure 117/59 [Right Arm] O2 Sat by Pulse 100 100 Oximetry - General Appearance General appearance: well-developed EENT: mucous membranes dry Neck: no JVD Respiratory: Present: Decreased Breath Sounds Cardiology: regular Gastrointestinal: normoactive bowel sounds Neurologic: alert and oriented x3 Musculoskeletal: other (2-3+edema) Psychiatric: mood/affect appropriate - Lab 05/09/16 09:34 05/09/16 09:34 Most recent lab results Calcium 6.9 mg/dL (8.4-10.2) L 05/08/16 08:45 Phosphorus 6.6 mg/dL (2.5-4.5) H 05/07/16 07:36 Magnesium 1.6 mg/dL (1.7-2.3) L 05/07/16 07:36
[2016-05-09 09:48] LABS: Basophils % (Auto) 0.3 % (0.0-1.8); Eosinophils % (Auto) 0.7 % (0.0-4.3); Hematocrit 27.6 % (30.3-42.9); Hemoglobin 8.8 gm/dl (10.1-14.3); Mean Corpuscular HGB Conc 32 % (30-34); Mean Corpuscular Hemoglobin 28 pg (28-32); Mean Corpuscular Volume 89 fl (79-97); Red Blood Count 3.12 M/mm3 (3.65-5.03); Red Cell Distribution Width 17.9 % (13.2-15.2); White Blood Count 6.1 K/mm3 (4.5-11.0)
[2016-05-09 10:02] LABS: BUN/Creatinine Ratio 21.66; Calcium 6.8 mg/dL (8.4-10.2); Chloride 92.8 mmol/L (98-107); Potassium 4.1 mmol/L (3.6-5.0)
[2016-05-09 10:03] LABS: Platelet Count 84 K/mm3 (140-440)
[2016-05-09] MEDS: ROCEPHIN/NS 1 GM/50 ML 50 ML IV SCH (10:45)
[2016-05-09] MEDS: SODIUM BICARBONATE 150 MEQ in STERILE WATER 1,000 ML IV SCH (10:45)
[2016-05-09] MEDS: COREG PO SCH ×2 (10:46→22:04)
[2016-05-09] MEDS: PERCOCET 5/325 PO PRN ×2 (10:47→17:07)
[2016-05-09] MEDS: BABY ASPIRIN PO SCH (10:48)
[2016-05-09] MEDS: NORVASC PO SCH (10:49)
[2016-05-09] MEDS: MAGIC MOUTHWASH PO SCH ×3 (10:49→22:01)
[2016-05-09] MEDS: NEURONTIN PO SCH ×3 (10:51→22:02)
--- NOTE | 2016-05-09 12:09 | Fluoroscopy Report ---
MODIFIED BARIUM SWALLOW History: Swallow evaluation, dysphagia. Findings: Fluoroscopy was provided by the radiologist for speech therapy to assess the swallowing mechanism. Please refer to the formal report by speech therapy. Impression: Successful modified barium swallow.
--- NOTE | 2016-05-09 17:54 | Consultation ---
History of Present Illness - Reason for Consult Consult date: 05/09/16 - History of Present Illness Patient seen/examined, labs reviewed, no [id number] at this time. Past History Past Medical History: acute IA, anemia, COPD, diabetes, hypertension, renal failure Past Surgical History: appendectomy, Other (cardiac stent) Social history: , lives with family. denies: smoking, alcohol abuse, prescription drug abuse Family history: diabetes, hypertension Medications and Allergies Allergies Allergy/AdvReac Type Severity Reaction Status Date / Time No Known Allergies Allergy Verified 09/13/14 17:59 Home Medications Medication Instructions Recorded Confirmed Last Taken Type Aspirin [Aspirin BABY CHEW TAB] 81 mg PO QDAY 10/25/13 10/09/15 09/13/14 History Carvedilol [Coreg] 12.5 mg PO BID 10/25/13 10/09/15 09/13/14 History Citalopram [Celexa] 20 mg PO QDAY 10/25/13 10/09/15 09/13/14 History Esomeprazole Magnesium [NexIUM] 40 mg PO BID 10/25/13 10/09/15 09/13/14 History Gabapentin 300 mg PO TID 10/25/13 10/09/15 09/13/14 History Hydralazine HCl [hydrALAZINE] 100 mg PO TID 10/25/13 10/09/15 09/13/14 History Insulin Aspart [NovoLOG 100 10 unit SQ ACHS 01/26/14 10/09/15 09/13/14 History UNITS/ML VIAL] Insulin Glargine,Hum.rec.anlog 30 units SQ QHS 01/26/14 10/09/15 09/13/14 History [Lantus] Oxycodone HCl/Acetaminophen 5 each PO BID PRN 04/09/14 05/07/16 09/13/14 History [OxyCODONE-Acetaminophen 2.5-325 mg] Colchicine 0.6 mg PO BID 10/09/15 10/09/15 Unknown History Cyclobenzaprine HCl [Flexeril 5 MG 5 mg PO BID 10/09/15 10/09/15 Unknown History TAB] Furosemide [Lasix TAB] 40 mg PO QDAY 10/09/15 10/09/15 Unknown History Ramelteon [Rozerem] 8 mg PO DAILY 10/09/15 10/09/15 Unknown History Simvastatin [Zocor TAB] 20 mg PO QHS MDD 1 tab 10/09/15 10/09/15 05/03/16 History amLODIPine [Norvasc] 5 mg PO DAILY 10/09/15 10/09/15 05/03/16 History Active Meds: Active Medications Acetaminophen (Tylenol) 650 mg MS Q8H PRN PRN Reason: Pain, Mild (1-3) Last Admin: 05/07/16 05:23 Dose: 650 mg Amlodipine Besylate (Norvasc) 10 mg PO DAILY [facility] Last Admin: 05/09/16 10:49 Dose: 10 mg Aspirin (Baby Aspirin) 81 mg PO QDAY [facility] Last Admin: 05/09/16 10:48 Dose: 81 mg Carvedilol (Coreg) 25 mg PO BID [facility] Last Admin: 05/09/16 10:46 Dose: 25 mg Dextrose (D50w (25gm)) 50 ml IV PRN PRN PRN Reason: Hypoglycemia Gabapentin (Neurontin) 300 mg PO TID [facility] Last Admin: 05/09/16 15:07 Dose: 300 mg Ceftriaxone Sodium (Rocephin/Ns 1 Gm/50 Ml) 50 mls @ 100 mls/hr IV Q24HR [facility] PRN Reason: Protocol Last Admin: 05/09/16 10:45 Dose: 100 mls/hr Sodium Bicarbonate 150 meq/ (Sterile Water) 1,150 mls @ 100 mls/hr IV DIRECT [facility] Last Admin: 05/09/16 10:45 Dose: 100 mls/hr Insulin Aspart (Novolog) 0 units SUB-Q Q6HR [facility] PRN Reason: Protocol Last Admin: 05/09/16 17:08 Dose: 4 units Insulin Detemir (Levemir) 30 units SUB-Q QHS [facility] Last Admin: 05/08/16 22:05 Dose: Not Given Lidocaine HCl (Magic Mouthwash) 15 ml PO TID [facility] Last Admin: 05/09/16 15:07 Dose: 15 ml Oxycodone/Acetaminophen (Percocet 5/325) 1 tab PO Q6H PRN PRN Reason: Pain, Moderate (4-6) Last Admin: 05/09/16 17:07 Dose: 1 tab Simvastatin (Zocor) 20 mg PO QHS [facility] Last Admin: 05/08/16 22:23 Dose: 20 mg Review of Systems Constitutional: fatigue, weakness Breasts: deferred Respiratory: dyspnea on exertion Musculoskeletal: low back pain Exam - Constitutional Vitals: Temp Pulse Resp BP Pulse Ox 98.2 F 66 20 121/58 99 05/09/16 16:10 05/09/16 16:10 05/09/16 16:10 05/09/16 16:10 05/09/16 16:10 General appearance: Present: mild distress, well-nourished - EENT Eyes: Present: PERRL ENT: hearing intact, clear oral mucosa - Neck Neck: Present: supple, normal ROM - Respiratory Respiratory: bilateral: rhonchi - Cardiovascular Heart Sounds: Present: S1 & S2. Absent: rub, click - Extremities Extremities: pulses symmetrical, No edema Peripheral Pulses: within normal limits - Abdominal General gastrointestinal: Present: soft, non-tender, non-distended, normal bowel sounds Female genitourinary: Present: deferred - Rectal Rectal Exam: deferred - Integumentary Integumentary: Present: clear, warm, dry - Psychiatric Psychiatric: appropriate mood/affect - Neurologic Neurologic: moves all extremities Results - Labs CBC & Chem 7: 05/09/16 09:34 05/09/16 09:34 Labs: Abnormal lab results 05/08/16 05/09/16 05/09/16 Range/Units 13:23 06:27 09:34 RBC 3.12 L (3.65-5.03) M/mm3 Hgb 8.8 L (10.1-14.3) gm/dl Hct 27.6 L (30.3-42.9) % RDW 17.9 H (13.2-15.2) % Plt Count 84 L (140-440) K/mm3 Lymph % (Auto) 9.1 L (13.4-35.0) % Lymph # 0.6 L (1.2-5.4) K/mm3 Seg Neutrophils % 83.7 H (40.0-70.0) % Sodium (137-145) mmol/L Chloride (98-107) mmol/L Carbon Dioxide (22-30) mmol/L BUN (7-17) mg/dL Creatinine (0.7-1.2) mg/dL Glucose (65-100) mg/dL POC Glucose 111 H (70-105) Uric Acid 11.5 H (3.5-7.6) mg/dL Calcium (8.4-10.2) mg/dL 05/09/16 05/09/16 05/09/16 Range/Units 09:34 12:20 16:07 RBC (3.65-5.03) M/mm3 Hgb (10.1-14.3) gm/dl Hct (30.3-42.9) % RDW (13.2-15.2) % Plt Count (140-440) K/mm3 Lymph % (Auto) (13.4-35.0) % Lymph # (1.2-5.4) K/mm3 Seg Neutrophils % (40.0-70.0) % Sodium 132 L (137-145) mmol/L Chloride 92.8 L (98-107) mmol/L Carbon Dioxide 18 L (22-30) mmol/L BUN 78 H (7-17) mg/dL Creatinine 3.6 H (0.7-1.2) mg/dL Glucose 134 H (65-100) mg/dL POC Glucose 156 H 173 H (70-105) Uric Acid (3.5-7.6) mg/dL Calcium 6.8 L (8.4-10.2) mg/dL Assessment and Plan - Patient Problems (1) Chronic pain Current Visit: Yes Status: Acute Qualifiers: Chronic pain type: other chronic pain Qualified Code(s): G89.29 - Other chronic pain Plan to address problem: safe pain control. same as above. Patient is on adequate oral pain control. same as above. (2) Debility Current Visit: Yes Status: Acute Plan to address problem: Will need supportive care, with Therapy.physically. same as above. She may benefit from, PT/OT in bed. Same as above. (3) Uncontrolled diabetes mellitus Current Visit: Yes Status: Acute Qualifiers: Diabetes mellitus type: type 2 Diabetes mellitus complication status: with hyperglycemia Qualified Code(s): E10.65 - Type 1 diabetes mellitus with hyperglycemia Plan to address problem: This was initially in part due to chronic steroid use.Will need tighter BG control. (4) CKD (chronic kidney disease), stage II Current Visit: Yes Status: Chronic Plan to address problem: deffer to the renal service. (5) Anemia Current Visit: Yes Status: Acute Qualifiers: Qualified Code(s): D63.8 - Anemia in other chronic diseases classified elsewhere Plan to address problem: lab monitoring, treating the underlying problem.ie CKD. Still stable. still stable. (6) Sepsis Current Visit: Yes Status: Acute Qualifiers: Qualified Code(s): A41.9 - Sepsis, unspecified organism Plan to address problem: due to uti,most likely multi organism. continue with IV abx, and await C/S. improving. resolving (7) Thrombocytopenia Current Visit: Yes Status: Acute Plan to address problem: Will do w/up. awaiting w/p lab results. (8) Uric acid arthropathy Current Visit: Yes Status: Acute Plan to address problem: asymptomatic,/and will deffer.
--- NOTE | 2016-05-09 19:21 | Progress Note ---
Assessment and Plan Assessment and plan: 1. Sepsis Secondary to UTI (blood and urine cultures positive for Escherichia coli) Continue antibiotics 2. UTI Urine culture positive for Escherichia coli and another GNR; final results 05/08 with only Escherichia coli - pansensitive, switched antibiotics to Rocephin 3. Acute renal insufficiency superimposed on chronic kidney disease Renal function worsened, Lasix was held in the last few days, but no significant improvement Renal ultrasound with no acute findings (no obstruction, no hydronephrosis) Nephrology consulted and additional workup in progress Avoid nephrotoxins - colchicine and hydralazine held Dose medications renally Continue to monitor BUN/creatinine and electrolytes 4. Uncontrolled diabetes BS on admission 500, Hemoglobin A1c 16 Family reports compliance with insulin; ? issues with absorption; changing administration site Accu-Cheks and SSI to assess insulin requirements 5. CAD With history of acute IL On beta dinesh, aspirin and statin; not on BRANDON inhibitor likely secondary to chronic kidney disease 6. Hypertension BB controlled on Coreg, amlodipine, hydralazine 7. Diastolic CHF On beta dinesh and diuretic (Lasix) Not an BRANDON inhibitor likely secondary to chronic kidney disease Need to hold Lasix due to worsening renal function Monitor I&O 8. Hyperlipidemia On statin 9. Gout Continue colchicine 10. Thrombocytopenia Plan discontinued and HIT panel obtained 11. DVT prophylaxis SCDs History Interval history: Awake, alert, doing well, no complaints Hospitalist Physical - Constitutional Vitals: Temp Pulse Resp BP Pulse Ox 98.2 F 66 20 121/58 99 05/09/16 16:10 05/09/16 16:10 05/09/16 16:10 05/09/16 16:10 05/09/16 16:10 General appearance: Present: no acute distress, obese - EENT Eyes: Present: PERRL, EOM intact. Absent: scleral icterus, conjunctival injection - Neck Neck: Present: supple, normal ROM. Absent: masses or JVD - Respiratory Respiratory effort: normal Respiratory: bilateral: diminished, negative: rales, rhonchi, wheezing - Cardiovascular Rhythm: regular Heart Sounds: Present: S1 & S2. Absent: systolic murmur - Extremities Extremities: no ischemia Extremity abnormal: edema - Abdominal General gastrointestinal: soft, non-tender, non-distended, normal bowel sounds - Psychiatric Psychiatric: cooperative - Neurologic Neurologic: CNII-XII intact, no focal deficits Results - Labs CBC & Chem 7: 05/09/16 09:34 01/09/17 09:34 Labs: Laboratory Last Values WBC 6.1 K/mm3 (4.5-11.0) 05/09/16 09:34 RBC 3.12 M/mm3 (3.65-5.03) L 05/09/16 09:34 Hgb 8.8 gm/dl (10.1-14.3) L 05/09/16 09:34 Hct 27.6 % (30.3-42.9) L 05/09/16 09:34 MCV 89 fl (79-97) D 05/09/16 09:34 MCH 28 pg (28-32) 05/09/16 09:34 MCHC 32 % (30-34) 05/09/16 09:34 RDW 17.9 % (13.2-15.2) H 05/09/16 09:34 Plt Count 84 K/mm3 (140-440) L 05/09/16 09:34 Lymph % (Auto) 9.1 % (13.4-35.0) L 05/09/16 09:34 [place] % (Auto) 6.2 % (0.0-7.3) 05/09/16 09:34 Eos % (Auto) 0.7 % (0.0-4.3) 05/09/16 09:34 Baso % (Auto) 0.3 % (0.0-1.8) 05/09/16 09:34 Lymph # 0.6 K/mm3 (1.2-5.4) L 05/09/16 09:34 [place] # 0.4 K/mm3 (0.0-0.8) 05/09/16 09:34 Eos # 0.0 K/mm3 (0.0-0.4) 05/09/16 09:34 Baso # 0.0 K/mm3 (0.0-0.1) 05/09/16 09:34 Add Manual Diff Complete 05/07/16 07:36 Total Counted 100 05/07/16 07:36 Seg Neutrophils % 83.7 % (40.0-70.0) H 05/09/16 09:34 Seg Neuts % (Manual) 89.0 % (40.0-70.0) H 05/07/16 07:36 Band Neutrophils % 3.0 % 05/07/16 07:36 Lymphocytes % (Manual) 7.0 % (13.4-35.0) L 05/07/16 07:36 Reactive Lymphs % (Man) 0 % 05/07/16 07:36 Monocytes % (Manual) 1.0 % (0.0-7.3) 05/07/16 07:36 Eosinophils % (Manual) 0 % (0.0-4.3) 05/07/16 07:36 Basophils % (Manual) 0 % (0.0-1.8) 05/06/16 08:32 Metamyelocytes % 0 % 05/07/16 07:36 Myelocytes % 0 % 05/07/16 07:36 Promyelocytes % 0 % 05/07/16 07:36 Blast Cells % 0 % 05/07/16 07:36 Nucleated RBC % Not Reportable 05/07/16 07:36 Seg Neutrophils # 5.1 K/mm3 (1.8-7.7) 05/09/16 09:34 Seg Neutrophils # Man 8.4 K/mm3 (1.8-7.7) H 05/07/16 07:36 Band Neutrophils # 0.3 K/mm3 05/07/16 07:36 Lymphocytes # (Manual) 0.7 K/mm3 (1.2-5.4) L 05/07/16 07:36 Abs React Lymphs (Man) 0.0 K/mm3 05/07/16 07:36 Monocytes # (Manual) 0.1 K/mm3 (0.0-0.8) 05/07/16 07:36 Eosinophils # (Manual) 0.0 K/mm3 (0.0-0.4) 05/07/16 07:36 Basophils # (Manual) 0.0 K/mm3 (0.0-0.1) 05/07/16 07:36 Metamyelocytes # 0.0 K/mm3 05/07/16 07:36 Myelocytes # 0.0 K/mm3 05/07/16 07:36 Promyelocytes # 0.0 K/mm3 05/07/16 07:36 Blast Cells # 0.0 K/mm3 05/07/16 07:36 WBC Morphology Not Reportable 05/07/16 07:36 Hypersegmented Neuts Not Reportable 05/07/16 07:36 Hyposegmented Neuts Not Reportable 05/07/16 07:36 Hypogranular Neuts Not Reportable 05/07/16 07:36 Smudge Cells Not Reportable 05/07/16 07:36 Toxic Granulation Not Reportable 05/07/16 07:36 Toxic Vacuolation Not Reportable 05/07/16 07:36 Dohle Bodies Not Reportable 05/07/16 07:36 Pelger-Huet Anomaly Not Reportable 05/07/16 07:36 Zenon Rods Not Reportable 05/07/16 07:36 Platelet Estimate Appears normal 05/07/16 07:36 Clumped Platelets Not Reportable 05/07/16 07:36 Plt Clumps, EDTA Not Reportable 05/07/16 07:36 Large Platelets Not Reportable 05/07/16 07:36 Giant Platelets Not Reportable 05/07/16 07:36 Platelet Satelliting Not Reportable 05/07/16 07:36 Plt Morphology Comment Not Reportable 05/07/16 07:36 RBC Morphology Not Reportable 05/07/16 07:36 Dimorphic RBCs Not Reportable 05/07/16 07:36 Polychromasia Few 05/07/16 07:36 Hypochromasia Not Reportable 05/07/16 07:36 Poikilocytosis 1+ 05/07/16 07:36 Anisocytosis 1+ 05/07/16 07:36 Microcytosis Not Reportable 05/07/16 07:36 Macrocytosis Not Reportable 05/07/16 07:36 Spherocytes Not Reportable 05/07/16 07:36 Pappenheimer Bodies Not Reportable 05/07/16 07:36 Sickle Cells Not Reportable 05/07/16 07:36 Target Cells Not Reportable 05/07/16 07:36 Tear Drop Cells 1+ 05/07/16 07:36 Ovalocytes 1+ 05/07/16 07:36 Helmet Cells Rare 05/07/16 07:36 [place] Bodies Not Reportable 05/07/16 07:36 [place] Rings Not Reportable 05/07/16 07:36 [place] Cells Rare 05/07/16 07:36 Bite Cells Not Reportable 05/07/16 07:36 Crenated Cell Not Reportable 05/07/16 07:36 Elliptocytes Not Reportable 05/07/16 07:36 Acanthocytes (Spur) Not Reportable 05/07/16 07:36 Rouleaux Not Reportable 05/07/16 07:36 Hemoglobin C Crystals Not Reportable 05/07/16 07:36 Schistocytes Not Reportable 05/07/16 07:36 Malaria parasites Not Reportable 05/07/16 07:36 ESR > 140.0 mm/Hr (0-20) 05/08/16 15:00 [place] Bodies Not Reportable 05/07/16 07:36 Hem Pathologist Commnt No 05/07/16 07:36 Fibrinogen 1166 mg/dl (211-480) H 05/08/16 15:00 D-Dimer 4592.95 ng/mlDDU (0-234) H 05/08/16 15:00 VBG pH 7.394 (7.320-7.420) 05/03/16 23:25 Sodium 132 mmol/L (137-145) L 05/09/16 09:34 Potassium 4.1 mmol/L (3.6-5.0) 05/09/16 09:34 Chloride 92.8 mmol/L (98-107) L 05/09/16 09:34 Carbon Dioxide 18 mmol/L (22-30) L 05/09/16 09:34 Anion Gap 25 mmol/L 05/09/16 09:34 BUN 78 mg/dL (7-17) H 05/09/16 09:34 Creatinine 3.6 mg/dL (0.7-1.2) H 05/09/16 09:34 Estimated GFR 15 ml/min 05/09/16 09:34 BUN/Creatinine Ratio 21.66 % 05/09/16 09:34 Glucose 134 mg/dL (65-100) H 05/09/16 09:34 POC Glucose 173 (70-105) H 05/09/16 16:07 Hemoglobin A1c 16.6 % (4-6) H 05/04/16 04:37 Osmolality 311 Mosm/kg 05/08/16 13:23 Lactic Acid 1.2 mmol/L (0.7-2.0) 05/08/16 19:20 Uric Acid 11.5 mg/dL (3.5-7.6) H 05/08/16 13:23 Calcium 6.8 mg/dL (8.4-10.2) L 05/09/16 09:34 Phosphorus 6.6 mg/dL (2.5-4.5) H 05/07/16 07:36 Magnesium 1.6 mg/dL (1.7-2.3) L 05/07/16 07:36 Total Bilirubin 0.4 mg/dL (0.1-1.2) 05/03/16 22:27 AST 262 units/L (5-40) H 05/03/16 22:27 ALT 82 units/L (7-56) H 05/03/16 22:27 Alkaline Phosphatase 138 units/L (35-129) H 05/03/16 22:27 Lactate Dehydrogenase 320 units/L (91-180) H 05/08/16 13:23 Total Creatine Kinase 34 units/L (30-135) 05/03/16 22:27 Total Protein 6.3 g/dL (6.3-8.2) 05/03/16 22:27 Albumin 3.0 g/dL (3.9-5) L 05/03/16 22:27 Albumin/Globulin Ratio 0.9 % 05/03/16 22:27 Triglycerides 66 mg/dL (2-149) 05/04/16 04:37 Cholesterol 161 mg/dL (50-199) 05/04/16 04:37 LDL Cholesterol Direct 33 mg/dL (50-130) L 05/04/16 04:37 HDL Cholesterol 115 mg/dL (40-59) H 05/04/16 04:37 Cholesterol/HDL Ratio 1.40 % 05/04/16 04:37 Vitamin B12 951.6 pg/mL (211-911) H 05/08/16 13:23 Folate 16.55 ng/mL (7.3-26.0) 05/08/16 13:23 TSH 3.830 mlU/mL (0.270-4.200) 05/03/16 22:27 Urine Color Yellow (Yellow) 05/03/16 22:39 Urine Turbidity Slightly-cloudy (Clear) 05/03/16 22:39 Urine pH 6.0 (5.0-7.0) 05/03/16 22:39 Ur Specific [place] 1.011 (1.003-1.030) 05/03/16 22:39 Urine Protein 100 mg/dl mg/dL (Negative) 05/03/16 22:39 Urine Glucose (UA) >=500 mg/dL (Negative) 05/03/16 22:39 Urine Ketones Neg mg/dL (Negative) 05/03/16 22:39 Urine Blood Lg (Negative) 05/03/16 22:39 Urine Nitrite Neg (Negative) 05/03/16 22:39 Urine Bilirubin Neg (Negative) 05/03/16 22:39 Urine Urobilinogen < 2.0 mg/dL (<2.0) 05/03/16 22:39 Ur Leukocyte Esterase Lg (Negative) 05/03/16 22:39 Urine WBC (Auto) 108.0 /HPF (0.0-6.0) H 05/03/16 22:39 Urine RBC (Auto) 28.0 /HPF (0.0-6.0) 05/03/16 22:39 U Epithel Cells (Auto) < 1.0 /HPF (0-13.0) 05/03/16 22:39 Urine Bacteria (Auto) 2+ /HPF (Negative) 05/03/16 22:39 Urine Mucus Few /HPF 05/03/16 22:39 Urine Yeast (Bud[place]) 1+ /HPF 05/03/16 22:39 Ketones 1.0 mg/dL (0.2-2.8) 05/03/16 23:25
[2016-05-09] MEDS: ZOCOR PO SCH (22:02)
[2016-05-09] MEDS: LEVEMIR SUB-Q SCH (22:36)
[2016-05-10] MEDS: NOVOLOG SUB-Q SCH ×4 (01:50→18:15)
[2016-05-10] MEDS: PERCOCET 5/325 PO PRN ×2 (04:00→13:56)
[2016-05-10] MEDS: SODIUM BICARBONATE 150 MEQ in STERILE WATER 1,000 ML IV SCH ×2 (04:00→17:45)
[2016-05-10 08:10] LABS: Albumin 1.7 g/dL (3.9-5); Albumin/Globulin Ratio 0.4 %; BUN/Creatinine Ratio 21.81; Bilirubin,Total 3.8 mg/dL (0.1-1.2); Calcium 6.6 mg/dL (8.4-10.2); Chloride 91.3 mmol/L (98-107); Potassium 3.4 mmol/L (3.6-5.0); Total Protein 5.5 g/dL (6.3-8.2)
[2016-05-10] MEDS: NEURONTIN PO SCH ×3 (09:03→21:22)
[2016-05-10] MEDS: MAGIC MOUTHWASH PO SCH ×2 (09:04→13:44)
--- NOTE | 2016-05-10 09:25 | Progress Note ---
Assessment and Plan - Patient Problems (1) Sepsis Current Visit: Yes Status: Acute Plan to address problem: E.coli sepsis with UTI Bacteremia (2) UTI (urinary tract infection) Current Visit: Yes Status: Acute Qualifiers: Urinary tract infection type: acute cystitis Hematuria presence: without hematuria Qualified Code(s): N30.00 - Acute cystitis without hematuria (3) Acute kidney injury superimposed on CKD Current Visit: No Status: Acute Plan to address problem: may be prerenal with underlying CKD. R/O interstitial nephritis. Renal ultrasound -no acute findings, no hydro. Continue present hydration. Discusseed with family about the above and treatment plan. Adjust meds per renal function.BUN-72, Scr-3.3 down from 3.6. IVF as ordered. Co2 better-D/C bicarb drip. R/O urinary retention. Place Brown to monitor urine output. No acute indication for dialysistoday (4) Anemia Current Visit: Yes Status: Chronic (5) Edema Current Visit: No Status: Chronic (6) Hypertension Current Visit: No Status: Chronic (7) Hypocalcemia Current Visit: Yes Status: Acute (8) Hyponatremia Current Visit: Yes Status: Acute Plan to address problem: better-135 (9) Metabolic acidosis Current Visit: Yes Status: Acute (10) Chronic obstructive pulmonary disease Current Visit: No Status: Chronic (11) Uncontrolled diabetes mellitus Current Visit: Yes Status: Acute Qualifiers: Diabetes mellitus type: type 2 Diabetes mellitus complication status: with hyperglycemia Subjective Date of service: 05/10/16 Interval history: pt feels weak and achy, moaning Objective - Vital Signs Vital signs: Vital Signs - 12hr 05/09/16 05/10/16 05/10/16 21:38 00:00 08:15 Temperature 97.0 F L 98.1 F Pulse Rate [ 68 Left Radial] Pulse Rate [ 72 Right Radial] Respiratory 22 24 Rate Blood Pressure 130/64 [Left Radial Artery] Blood Pressure 124/62 [Right Arm] O2 Sat by Pulse 98 98 98 Oximetry 05/10/16 09:05 Temperature Pulse Rate [ Left Radial] Pulse Rate [ Right Radial] Respiratory Rate Blood Pressure [Left Radial Artery] Blood Pressure [Right Arm] O2 Sat by Pulse 98 Oximetry - General Appearance General appearance: obese, chronically ill EENT: mucous membranes dry Neck: no JVD Respiratory: Present: Decreased Breath Sounds Cardiology: regular Gastrointestinal: normoactive bowel sounds Musculoskeletal: other (1+ edema) - Lab 05/09/16 09:34 05/10/16 07:16 Most recent lab results Calcium 6.6 mg/dL (8.4-10.2) L 05/10/16 07:16 Phosphorus 6.6 mg/dL (2.5-4.5) H 05/07/16 07:36 Magnesium 1.6 mg/dL (1.7-2.3) L 05/07/16 07:36
[2016-05-10] MEDS: ROCEPHIN/NS 1 GM/50 ML 50 ML IV SCH (11:03)
[2016-05-10] MEDS: COREG PO SCH ×2 (11:04→21:23)
[2016-05-10] MEDS: NORVASC PO SCH (11:05)
[2016-05-10] MEDS: BABY ASPIRIN PO SCH (11:05)
--- NOTE | 2016-05-10 16:34 | Progress Note ---
Assessment and Plan Assessment and plan: 1. Sepsis Secondary to UTI (blood and urine cultures positive for Escherichia coli) Continue antibiotics Recheck blood culture for clearance 2. UTI Urine culture positive for Escherichia coli and another GNR; final results 05/08 with only Escherichia coli - pansensitive, switched antibiotics to Rocephin 3. Acute renal insufficiency superimposed on chronic kidney disease Renal function worsened, Lasix was held in the last few days, but no significant improvement Renal ultrasound with no acute findings (no obstruction, no hydronephrosis) Nephrology consulted and additional workup in progress Avoid nephrotoxins - colchicine and hydralazine held Dose medications renally Continue to monitor BUN/creatinine and electrolytes Follow nephrology recommendations 4. Uncontrolled diabetes BS on admission 500, Hemoglobin A1c 16 Family reports compliance with insulin; ? issues with absorption; changing administration site Accu-Cheks and SSI to assess insulin requirements 5. CAD With history of acute VA On beta dinesh, aspirin and statin; not on BRANDON inhibitor likely secondary to chronic kidney disease 6. Hypertension BB controlled on Coreg, amlodipine, hydralazine 7. Diastolic CHF On beta dinesh and diuretic (Lasix) Not an BRANDON inhibitor likely secondary to chronic kidney disease Need to hold Lasix due to worsening renal function Monitor I&O 8. Hyperlipidemia On statin 9. Gout Continue colchicine 10. Thrombocytopenia Plan discontinued and HIT panel obtained 11. DVT prophylaxis SCDs History Interval history: doing well, no complaints Hospitalist Physical - Constitutional Vitals: Temp Pulse Resp BP Pulse Ox 98.1 F 68 24 130/64 98 05/10/16 08:15 05/10/16 08:15 05/10/16 08:15 05/10/16 08:15 05/10/16 09:05 General appearance: Present: no acute distress, obese - EENT Eyes: Present: PERRL, EOM intact. Absent: scleral icterus, conjunctival injection ENT: clear oral mucosa, poor dentition - Neck Neck: Present: supple, normal ROM. Absent: masses or JVD - Respiratory Respiratory effort: normal Respiratory: bilateral: diminished, negative: rhonchi, wheezing Results - Labs CBC & Chem 7: 05/09/16 09:34 05/10/16 07:16 Labs: Laboratory Last Values WBC 6.1 K/mm3 (4.5-11.0) 05/09/16 09:34 RBC 3.12 M/mm3 (3.65-5.03) L 05/09/16 09:34 Hgb 8.8 gm/dl (10.1-14.3) L 05/09/16 09:34 Hct 27.6 % (30.3-42.9) L 05/09/16 09:34 MCV 89 fl (79-97) D 05/09/16 09:34 MCH 28 pg (28-32) 05/09/16 09:34 MCHC 32 % (30-34) 05/09/16 09:34 RDW 17.9 % (13.2-15.2) H 05/09/16 09:34 Plt Count 84 K/mm3 (140-440) L 05/09/16 09:34 Lymph % (Auto) 9.1 % (13.4-35.0) L 05/09/16 09:34 [place] % (Auto) 6.2 % (0.0-7.3) 05/09/16 09:34 Eos % (Auto) 0.7 % (0.0-4.3) 05/09/16 09:34 Baso % (Auto) 0.3 % (0.0-1.8) 05/09/16 09:34 Lymph # 0.6 K/mm3 (1.2-5.4) L 05/09/16 09:34 Bath # 0.4 K/mm3 (0.0-0.8) 05/09/16 09:34 Eos # 0.0 K/mm3 (0.0-0.4) 05/09/16 09:34 Baso # 0.0 K/mm3 (0.0-0.1) 05/09/16 09:34 Add Manual Diff Complete 05/07/16 07:36 Total Counted 100 05/07/16 07:36 Seg Neutrophils % 83.7 % (40.0-70.0) H 05/09/16 09:34 Seg Neuts % (Manual) 89.0 % (40.0-70.0) H 05/07/16 07:36 Band Neutrophils % 3.0 % 05/07/16 07:36 Lymphocytes % (Manual) 7.0 % (13.4-35.0) L 05/07/16 07:36 Reactive Lymphs % (Man) 0 % 05/07/16 07:36 Monocytes % (Manual) 1.0 % (0.0-7.3) 05/07/16 07:36 Eosinophils % (Manual) 0 % (0.0-4.3) 05/07/16 07:36 Basophils % (Manual) 0 % (0.0-1.8) 05/06/16 08:32 Metamyelocytes % 0 % 05/07/16 07:36 Myelocytes % 0 % 05/07/16 07:36 Promyelocytes % 0 % 05/07/16 07:36 Blast Cells % 0 % 05/07/16 07:36 Nucleated RBC % Not Reportable 05/07/16 07:36 Seg Neutrophils # 5.1 K/mm3 (1.8-7.7) 05/09/16 09:34 Seg Neutrophils # Man 8.4 K/mm3 (1.8-7.7) H 05/07/16 07:36 Band Neutrophils # 0.3 K/mm3 05/07/16 07:36 Lymphocytes # (Manual) 0.7 K/mm3 (1.2-5.4) L 05/07/16 07:36 Abs React Lymphs (Man) 0.0 K/mm3 05/07/16 07:36 Monocytes # (Manual) 0.1 K/mm3 (0.0-0.8) 05/07/16 07:36 Eosinophils # (Manual) 0.0 K/mm3 (0.0-0.4) 05/07/16 07:36 Basophils # (Manual) 0.0 K/mm3 (0.0-0.1) 05/07/16 07:36 Metamyelocytes # 0.0 K/mm3 05/07/16 07:36 Myelocytes # 0.0 K/mm3 05/07/16 07:36 Promyelocytes # 0.0 K/mm3 05/07/16 07:36 Blast Cells # 0.0 K/mm3 05/07/16 07:36 WBC Morphology Not Reportable 05/07/16 07:36 Hypersegmented Neuts Not Reportable 05/07/16 07:36 Hyposegmented Neuts Not Reportable 05/07/16 07:36 Hypogranular Neuts Not Reportable 05/07/16 07:36 Smudge Cells Not Reportable 05/07/16 07:36 Toxic Granulation Not Reportable 05/07/16 07:36 Toxic Vacuolation Not Reportable 05/07/16 07:36 Dohle Bodies Not Reportable 05/07/16 07:36 Pelger-Huet Anomaly Not Reportable 05/07/16 07:36 Zenon Rods Not Reportable 05/07/16 07:36 Platelet Estimate Appears normal 05/07/16 07:36 Clumped Platelets Not Reportable 05/07/16 07:36 Plt Clumps, EDTA Not Reportable 05/07/16 07:36 Large Platelets Not Reportable 05/07/16 07:36 Giant Platelets Not Reportable 05/07/16 07:36 Platelet Satelliting Not Reportable 05/07/16 07:36 Plt Morphology Comment Not Reportable 05/07/16 07:36 RBC Morphology Not Reportable 05/07/16 07:36 Dimorphic RBCs Not Reportable 05/07/16 07:36 Polychromasia Few 05/07/16 07:36 Hypochromasia Not Reportable 05/07/16 07:36 Poikilocytosis 1+ 05/07/16 07:36 Anisocytosis 1+ 05/07/16 07:36 Microcytosis Not Reportable 05/07/16 07:36 Macrocytosis Not Reportable 05/07/16 07:36 Spherocytes Not Reportable 05/07/16 07:36 Pappenheimer Bodies Not Reportable 05/07/16 07:36 Sickle Cells Not Reportable 05/07/16 07:36 Target Cells Not Reportable 05/07/16 07:36 Tear Drop Cells 1+ 05/07/16 07:36 Ovalocytes 1+ 05/07/16 07:36 Helmet Cells Rare 05/07/16 07:36 [place] Bodies Not Reportable 05/07/16 07:36 [place] Rings Not Reportable 05/07/16 07:36 [place] Cells Rare 05/07/16 07:36 Bite Cells Not Reportable 05/07/16 07:36 Crenated Cell Not Reportable 05/07/16 07:36 Elliptocytes Not Reportable 05/07/16 07:36 Acanthocytes (Spur) Not Reportable 05/07/16 07:36 Rouleaux Not Reportable 05/07/16 07:36 Hemoglobin C Crystals Not Reportable 05/07/16 07:36 Schistocytes Not Reportable 05/07/16 07:36 Malaria parasites Not Reportable 05/07/16 07:36 ESR > 140.0 mm/Hr (0-20) 05/08/16 15:00 Tulio Bodies Not Reportable 05/07/16 07:36 Hem Pathologist Commnt No 05/07/16 07:36 Fibrinogen 1166 mg/dl (211-480) H 05/08/16 15:00 D-Dimer 4592.95 ng/mlDDU (0-234) H 05/08/16 15:00 VBG pH 7.394 (7.320-7.420) 05/03/16 23:25 Sodium 135 mmol/L (137-145) L 05/10/16 07:16 Potassium 3.4 mmol/L (3.6-5.0) L 05/10/16 07:16 Chloride 91.3 mmol/L (98-107) L 05/10/16 07:16 Carbon Dioxide 26 mmol/L (22-30) D 05/10/16 07:16 Anion Gap 21 mmol/L 05/10/16 07:16 BUN 72 mg/dL (7-17) H 05/10/16 07:16 Creatinine 3.3 mg/dL (0.7-1.2) H 05/10/16 07:16 Estimated GFR 16 ml/min 05/10/16 07:16 BUN/Creatinine Ratio 21.81 % 05/10/16 07:16 Glucose 161 mg/dL (65-100) H 05/10/16 07:16 POC Glucose 148 (70-105) H 05/10/16 11:16 Hemoglobin A1c 16.6 % (4-6) H 05/04/16 04:37 Osmolality 311 Mosm/kg 05/08/16 13:23 Lactic Acid 1.2 mmol/L (0.7-2.0) 05/08/16 19:20 Uric Acid 11.5 mg/dL (3.5-7.6) H 05/08/16 13:23 Calcium 6.6 mg/dL (8.4-10.2) L 05/10/16 07:16 Phosphorus 6.6 mg/dL (2.5-4.5) H 05/07/16 07:36 Magnesium 1.6 mg/dL (1.7-2.3) L 05/07/16 07:36 Total Bilirubin 3.8 mg/dL (0.1-1.2) H 05/10/16 07:16 AST 36 units/L (5-40) 05/10/16 07:16 ALT 25 units/L (7-56) 05/10/16 07:16 Alkaline Phosphatase 280 units/L (35-129) H 05/10/16 07:16 Lactate Dehydrogenase 320 units/L (91-180) H 05/08/16 13:23 Total Creatine Kinase 34 units/L (30-135) 05/03/16 22:27 Total Protein 5.5 g/dL (6.3-8.2) L 05/10/16 07:16 Albumin 1.7 g/dL (3.9-5) L 05/10/16 07:16 Albumin/Globulin Ratio 0.4 % 05/10/16 07:16 Triglycerides 66 mg/dL (2-149) 05/04/16 04:37 Cholesterol 161 mg/dL (50-199) 05/04/16 04:37 LDL Cholesterol Direct 33 mg/dL (50-130) L 05/04/16 04:37 HDL Cholesterol 115 mg/dL (40-59) H 05/04/16 04:37 Cholesterol/HDL Ratio 1.40 % 05/04/16 04:37 Vitamin B12 951.6 pg/mL (211-911) H 05/08/16 13:23 Folate 16.55 ng/mL (7.3-26.0) 05/08/16 13:23 TSH 3.830 mlU/mL (0.270-4.200) 05/03/16 22:27 PTH Intact 275.1 pg/mL (15-65) H 05/10/16 07:16 Urine Color Yellow (Yellow) 05/03/16 22:39 Urine Turbidity Slightly-cloudy (Clear) 05/03/16 22:39 Urine pH 6.0 (5.0-7.0) 05/03/16 22:39 Ur Specific [place] 1.011 (1.003-1.030) 05/03/16 22:39 Urine Protein 100 mg/dl mg/dL (Negative) 05/03/16 22:39 Urine Glucose (UA) >=500 mg/dL (Negative) 05/03/16 22:39 Urine Ketones Neg mg/dL (Negative) 05/03/16 22:39 Urine Blood Lg (Negative) 05/03/16 22:39 Urine Nitrite Neg (Negative) 05/03/16 22:39 Urine Bilirubin Neg (Negative) 05/03/16 22:39 Urine Urobilinogen < 2.0 mg/dL (<2.0) 05/03/16 22:39 Ur Leukocyte Esterase Lg (Negative) 05/03/16 22:39 Urine WBC (Auto) 108.0 /HPF (0.0-6.0) H 05/03/16 22:39 Urine RBC (Auto) 28.0 /HPF (0.0-6.0) 05/03/16 22:39 U Epithel Cells (Auto) < 1.0 /HPF (0-13.0) 05/03/16 22:39 Urine Bacteria (Auto) 2+ /HPF (Negative) 05/03/16 22:39 Urine Mucus Few /HPF 05/03/16 22:39 Urine Yeast (Budding) 1+ /HPF 05/03/16 22:39 Ketones 1.0 mg/dL (0.2-2.8) 05/03/16 23:25
--- NOTE | 2016-05-10 18:27 | Consultation ---
History of Present Illness - Reason for Consult Consult date: 05/10/16 - History of Present Illness Patient seen/examined, labs reviewed, case d/w patient. had some lower back pain ealier, but better with pain meds. Past History Past Medical History: acute [place], anemia, COPD, diabetes, hypertension, renal failure Past Surgical History: appendectomy, Other (cardiac stent) Social history: , lives with family. denies: smoking, alcohol abuse, prescription drug abuse Family history: diabetes, hypertension Medications and Allergies Allergies Allergy/AdvReac Type Severity Reaction Status Date / Time No Known Allergies Allergy Verified 09/13/14 17:59 Home Medications Medication Instructions Recorded Confirmed Last Taken Type Aspirin [Aspirin BABY CHEW TAB] 81 mg PO QDAY 10/25/13 10/09/15 09/13/14 History Carvedilol [Coreg] 12.5 mg PO BID 10/25/13 10/09/15 09/13/14 History Citalopram [Celexa] 20 mg PO QDAY 10/25/13 10/09/15 09/13/14 History Esomeprazole Magnesium [NexIUM] 40 mg PO BID 10/25/13 10/09/15 09/13/14 History Gabapentin 300 mg PO TID 10/25/13 10/09/15 09/13/14 History Hydralazine HCl [hydrALAZINE] 100 mg PO TID 10/25/13 10/09/15 09/13/14 History Insulin Aspart [NovoLOG 100 10 unit SQ ACHS 01/26/14 10/09/15 09/13/14 History UNITS/ML VIAL] Insulin Glargine,Hum.rec.anlog 30 units SQ QHS 01/26/14 10/09/15 09/13/14 History [Lantus] Oxycodone HCl/Acetaminophen 5 each PO BID PRN 04/09/14 05/07/16 09/13/14 History [OxyCODONE-Acetaminophen 2.5-325 mg] Colchicine 0.6 mg PO BID 10/09/15 10/09/15 Unknown History Cyclobenzaprine HCl [Flexeril 5 MG 5 mg PO BID 10/09/15 10/09/15 Unknown History TAB] Furosemide [Lasix TAB] 40 mg PO QDAY 10/09/15 10/09/15 Unknown History Ramelteon [Rozerem] 8 mg PO DAILY 10/09/15 10/09/15 Unknown History Simvastatin [Zocor TAB] 20 mg PO QHS MDD 1 tab 10/09/15 10/09/15 05/03/16 History amLODIPine [Norvasc] 5 mg PO DAILY 10/09/15 10/09/15 05/03/16 History Active Meds: Active Medications Acetaminophen (Tylenol) 650 mg [place] Q8H PRN PRN Reason: Pain, Mild (1-3) Last Admin: 05/07/16 05:23 Dose: 650 mg Amlodipine Besylate (Norvasc) 10 mg PO DAILY [facility] Last Admin: 05/10/16 11:05 Dose: 10 mg Aspirin (Baby Aspirin) 81 mg PO QDAY [facility] Last Admin: 05/10/16 11:05 Dose: 81 mg Carvedilol (Coreg) 25 mg PO BID [facility] Last Admin: 05/10/16 11:04 Dose: 25 mg Dextrose (D50w (25gm)) 50 ml IV PRN PRN PRN Reason: Hypoglycemia Gabapentin (Neurontin) 300 mg PO TID [facility] Last Admin: 05/10/16 13:44 Dose: 300 mg Ceftriaxone Sodium (Rocephin/Ns 1 Gm/50 Ml) 50 mls @ 100 mls/hr IV Q24HR [facility] PRN Reason: Protocol Last Admin: 05/10/16 11:03 Dose: 100 mls/hr Sodium Bicarbonate 150 meq/ (Sterile Water) 1,150 mls @ 100 mls/hr IV DIRECT [facility] Last Admin: 05/10/16 17:45 Dose: 100 mls/hr Insulin Aspart (Novolog) 0 units SUB-Q Q6HR [facility] PRN Reason: Protocol Last Admin: 05/10/16 18:15 Dose: 4 units Insulin Detemir (Levemir) 30 units SUB-Q QHS [facility] Last Admin: 05/09/16 22:36 Dose: 30 units Lidocaine HCl (Magic Mouthwash) 15 ml PO TID [facility] Last Admin: 05/10/16 13:44 Dose: 15 ml Oxycodone/Acetaminophen (Percocet 5/325) 1 tab PO Q6H PRN PRN Reason: Pain, Moderate (4-6) Last Admin: 05/10/16 13:56 Dose: 1 tab Simvastatin (Zocor) 20 mg PO QHS [facility] Last Admin: 05/09/16 22:02 Dose: 20 mg Review of Systems Constitutional: chronic pain Breasts: deferred Musculoskeletal: low back pain Neurological: weakness Exam - Constitutional Vitals: Temp Pulse Resp BP Pulse Ox 98.9 F 22 L 20 113/66 98 05/10/16 17:00 05/10/16 17:00 05/10/16 17:00 05/10/16 17:00 05/10/16 17:00 General appearance: Present: mild distress, well-nourished - EENT Eyes: Present: PERRL ENT: hearing intact, clear oral mucosa - Neck Neck: Present: supple, normal ROM - Respiratory Respiratory: bilateral: rhonchi - Cardiovascular Heart Sounds: Present: S1 & S2. Absent: rub, click - Extremities Extremities: pulses symmetrical, No edema Peripheral Pulses: within normal limits - Abdominal General gastrointestinal: Present: soft, non-tender, non-distended, normal bowel sounds Female genitourinary: Present: deferred - Rectal Rectal Exam: deferred - Integumentary Integumentary: Present: clear, warm, dry - Musculoskeletal Musculoskeletal: gait normal, strength equal bilaterally - Psychiatric Psychiatric: appropriate mood/affect - Neurologic Neurologic: moves all extremities Results - Labs CBC & Chem 7: 05/09/16 09:34 05/10/16 07:16 Labs: Abnormal lab results 05/09/16 05/09/16 05/10/16 Range/Units 21:41 22:27 05:59 Sodium (137-145) mmol/L Potassium (3.6-5.0) mmol/L Chloride (98-107) mmol/L BUN (7-17) mg/dL Creatinine (0.7-1.2) mg/dL Glucose (65-100) mg/dL POC Glucose 210 H 194 H 162 H (70-105) Calcium (8.4-10.2) mg/dL Total Bilirubin (0.1-1.2) mg/dL Alkaline Phosphatase (35-129) units/L Total Protein (6.3-8.2) g/dL Albumin (3.9-5) g/dL PTH Intact (15-65) pg/mL 05/10/16 05/10/16 05/10/16 Range/Units 07:16 07:16 11:16 Sodium 135 L (137-145) mmol/L Potassium 3.4 L (3.6-5.0) mmol/L Chloride 91.3 L (98-107) mmol/L BUN 72 H (7-17) mg/dL Creatinine 3.3 H (0.7-1.2) mg/dL Glucose 161 H (65-100) mg/dL POC Glucose 148 H (70-105) Calcium 6.6 L (8.4-10.2) mg/dL Total Bilirubin 3.8 H (0.1-1.2) mg/dL Alkaline Phosphatase 280 H (35-129) units/L Total Protein 5.5 L (6.3-8.2) g/dL Albumin 1.7 L (3.9-5) g/dL PTH Intact 275.1 H (15-65) pg/mL 05/10/16 Range/Units 17:49 Sodium (137-145) mmol/L Potassium (3.6-5.0) mmol/L Chloride (98-107) mmol/L BUN (7-17) mg/dL Creatinine (0.7-1.2) mg/dL Glucose (65-100) mg/dL POC Glucose 178 H (70-105) Calcium (8.4-10.2) mg/dL Total Bilirubin (0.1-1.2) mg/dL Alkaline Phosphatase (35-129) units/L Total Protein (6.3-8.2) g/dL Albumin (3.9-5) g/dL PTH Intact (15-65) pg/mL Assessment and Plan - Patient Problems (1) Chronic pain Current Visit: Yes Status: Acute Qualifiers: Chronic pain type: other chronic pain Qualified Code(s): G89.29 - Other chronic pain Plan to address problem: safe pain control. same as above. Patient is on adequate oral pain control. same as above. (2) Debility Current Visit: Yes Status: Acute Plan to address problem: Will need supportive care, with Therapy.physically. same as above. She may benefit from, PT/OT in bed. Same as above. (3) Uncontrolled diabetes mellitus Current Visit: Yes Status: Acute Qualifiers: Diabetes mellitus type: type 2 Diabetes mellitus complication status: with hyperglycemia Qualified Code(s): E10.65 - Type 1 diabetes mellitus with hyperglycemia Plan to address problem: This was initially in part due to chronic steroid use.Will need tighter BG control. (4) CKD (chronic kidney disease), stage II Current Visit: Yes Status: Chronic Plan to address problem: deffer to the renal service. (5) Anemia Current Visit: Yes Status: Chronic Qualifiers: Qualified Code(s): D63.8 - Anemia in other chronic diseases classified elsewhere Plan to address problem: lab monitoring, treating the underlying problem.ie CKD. Still stable. still stable. (6) Sepsis Current Visit: Yes Status: Acute Qualifiers: Qualified Code(s): A41.9 - Sepsis, unspecified organism Plan to address problem: due to uti,most likely multi organism. continue with IV abx, and await C/S. improving. resolving (7) Thrombocytopenia Current Visit: Yes Status: Acute Plan to address problem: Will do w/up. awaiting w/p lab results. (8) Uric acid arthropathy Current Visit: Yes Status: Acute Plan to address problem: asymptomatic,/and will deffer.
[2016-05-10 18:48] LABS: Heparin-Induced Platelet Antib Negative (Negative); Unfractionated Heparin Negative (Negative)
[2016-05-10] MEDS ORDERED: NEURONTIN PO SCH (19:28)
[2016-05-10] MEDS: ZOCOR PO SCH (21:23)
[2016-05-10] MEDS: NACL 0.9% 1000 ML 1,000 ML IV SCH (21:25)
[2016-05-10] MEDS: LEVEMIR SUB-Q SCH (21:27)
[2016-05-11] MEDS: NOVOLOG SUB-Q SCH ×4 (00:28→18:16)
[2016-05-11] MEDS: MAGIC MOUTHWASH PO SCH ×4 (00:31→21:02)
[2016-05-11] MEDS: PERCOCET 5/325 PO PRN ×3 (03:48→22:39)
[2016-05-11] MEDS: NEURONTIN PO SCH ×3 (08:03→20:59)
[2016-05-11 08:54] LABS: BUN/Creatinine Ratio 22.66; Calcium 6.7 mg/dL (8.4-10.2); Chloride 92.8 mmol/L (98-107); Potassium 3.8 mmol/L (3.6-5.0)
--- NOTE | 2016-05-11 09:30 | Progress Note ---
Assessment and Plan - Patient Problems (1) Sepsis Current Visit: Yes Status: Acute Plan to address problem: E.coli sepsis with UTI Bacteremia (2) UTI (urinary tract infection) Current Visit: Yes Status: Acute Qualifiers: Urinary tract infection type: acute cystitis Hematuria presence: without hematuria Qualified Code(s): N30.00 - Acute cystitis without hematuria (3) Acute kidney injury superimposed on CKD Current Visit: No Status: Acute Plan to address problem: may be prerenal with underlying CKD. R/O interstitial nephritis. Renal ultrasound -no acute findings, no hydro. Continue present hydration. Discusseed with family about the above and treatment plan. Adjust meds per renal function.continue IVF as ordered. No acute indication for dialysistodayBUN-68, Scr- down to 3.0 (4) Anemia Current Visit: Yes Status: Chronic (5) Edema Current Visit: No Status: Chronic (6) Hypertension Current Visit: No Status: Chronic (7) Hypocalcemia Current Visit: Yes Status: Acute (8) Hyponatremia Current Visit: Yes Status: Acute (9) Metabolic acidosis Current Visit: Yes Status: Acute (10) Chronic obstructive pulmonary disease Current Visit: No Status: Chronic (11) Uncontrolled diabetes mellitus Current Visit: Yes Status: Acute Qualifiers: Diabetes mellitus type: type 2 Diabetes mellitus complication status: with hyperglycemia Subjective Date of service: 05/11/16 Interval history: pt feels little better, still weak and achy, denies CP or SOB Objective - Vital Signs Vital signs: Vital Signs - 12hr 05/10/16 05/11/16 05/11/16 22:00 00:00 04:00 Temperature 98.6 F 98.4 F 98.1 F Pulse Rate [ Apical] Pulse Rate [ 70 68 72 Left Radial] Respiratory 18 18 18 Rate Blood Pressure 128/56 121/62 118/60 [Right Arm] O2 Sat by Pulse 97 100 Oximetry 05/11/16 05/11/16 08:18 08:36 Temperature 98.9 F Pulse Rate [ 72 Apical] Pulse Rate [ Left Radial] Respiratory 20 Rate Blood Pressure 145/60 [Right Arm] O2 Sat by Pulse 100 99 Oximetry - General Appearance General appearance: well-developed, obese EENT: mucous membranes moist Neck: no JVD Respiratory: Present: Decreased Breath Sounds Cardiology: regular Gastrointestinal: normoactive bowel sounds Musculoskeletal: other (1+, more alert today) - Lab 05/09/16 09:34 05/11/16 08:15 Most recent lab results Calcium 6.7 mg/dL (8.4-10.2) L 05/11/16 08:15 Phosphorus 6.6 mg/dL (2.5-4.5) H 05/07/16 07:36 Magnesium 1.6 mg/dL (1.7-2.3) L 05/07/16 07:36
[2016-05-11] MEDS: COREG PO SCH ×2 (09:31→22:37)
[2016-05-11] MEDS: ROCEPHIN/NS 1 GM/50 ML 50 ML IV SCH (09:31)
[2016-05-11] MEDS: BABY ASPIRIN PO SCH (09:33)
[2016-05-11] MEDS: NACL 0.9% 1000 ML 1,000 ML IV SCH (09:47)
--- NOTE | 2016-05-11 16:30 | Progress Note ---
Assessment and Plan Assessment and plan: Sepsis * Secondary to UTI (blood and urine cultures positive for Escherichia coli) * Continue antibiotics UTI with E. coli * cont rocephin Acute renal insufficiency superimposed on chronic kidney disease * Renal ultrasound with no acute findings (no obstruction, no hydronephrosis) * Nephrology consulted and additional workup in progress * Avoid nephrotoxins - colchicine, lasix and hydralazine held * Continue to monitor BUN/creatinine and electrolytes Uncontrolled diabetes with hyperglycemia * BS on admission 500, Hemoglobin A1c 16 * cont finger sticks and subcu insulin, adjust dose as needed CAD With history of acute [place] * On beta dinesh, aspirin and statin; * not on BRANDON inhibitor likely secondary to chronic kidney disease Hypertension * BP controlled on Coreg, amlodipine, hydralazine Diastolic CHF * On beta dinesh * Not an BRANDON inhibitor or lasix secondary to worsening kidney disease Hyperlipidemia On statin Gout, Continue colchicine Thrombocytopenia * heparin discontinued and HIT panel obtained DVT prophylaxis with SCDs History Interval history: Patient seen and examined. Medical records and medication list reviewed. No acute event overnight noted by the RN. Her renal function slightly improving, Discussed plan of care at bedside with patient's family. Hospitalist Physical - Physical exam Narrative exam: GENERAL: elderly obese AAF lying on bed appeared to be in no discomfort. HEENT: Normocephalic. Atraumatic. No conjunctival congestion or icterus. Patient has moist mucous membranes. puffy face. NECK: Supple. Trachea midline. CHEST/LUNGS: Clear to auscultated bilaterally, breathing nonlabored. No wheezes crackles or rhonchi. HEART/CARDIOVASCULAR: Regular in rate and rhythm. S1 and S2 positive. ABDOMEN: Abdomen is soft, nontender, obese. Patient has normal bowel sounds. SKIN: There is no rash. Warm and dry. NEURO: No focal motor deficit. Follows command. diminished muscle strength b/l MUSCULOSKELETAL: No joint effusion or tenderness. EXTRIMITY: + edema, no cyanosis or clubbing. - Constitutional Vitals: Temp Pulse Resp BP Pulse Ox 98.8 F 66 20 113/51 99 05/11/16 12:31 05/11/16 12:31 05/11/16 12:31 05/11/16 12:31 05/11/16 08:36 General appearance: Present: mild distress, well-nourished Results - Labs CBC & Chem 7: 05/09/16 09:34 05/11/16 08:15 Labs: Laboratory Last Values WBC 6.1 K/mm3 (4.5-11.0) 05/09/16 09:34 RBC 3.12 M/mm3 (3.65-5.03) L 05/09/16 09:34 Hgb 8.8 gm/dl (10.1-14.3) L 05/09/16 09:34 Hct 27.6 % (30.3-42.9) L 05/09/16 09:34 MCV 89 fl (79-97) D 05/09/16 09:34 MCH 28 pg (28-32) 05/09/16 09:34 MCHC 32 % (30-34) 05/09/16 09:34 RDW 17.9 % (13.2-15.2) H 05/09/16 09:34 Plt Count 84 K/mm3 (140-440) L 05/09/16 09:34 Lymph % (Auto) 9.1 % (13.4-35.0) L 05/09/16 09:34 Grant % (Auto) 6.2 % (0.0-7.3) 05/09/16 09:34 Eos % (Auto) 0.7 % (0.0-4.3) 05/09/16 09:34 Baso % (Auto) 0.3 % (0.0-1.8) 05/09/16 09:34 Lymph # 0.6 K/mm3 (1.2-5.4) L 05/09/16 09:34 Grant # 0.4 K/mm3 (0.0-0.8) 05/09/16 09:34 Eos # 0.0 K/mm3 (0.0-0.4) 05/09/16 09:34 Baso # 0.0 K/mm3 (0.0-0.1) 05/09/16 09:34 Add Manual Diff Complete 05/07/16 07:36 Total Counted 100 05/07/16 07:36 Seg Neutrophils % 83.7 % (40.0-70.0) H 05/09/16 09:34 Seg Neuts % (Manual) 89.0 % (40.0-70.0) H 05/07/16 07:36 Band Neutrophils % 3.0 % 05/07/16 07:36 Lymphocytes % (Manual) 7.0 % (13.4-35.0) L 05/07/16 07:36 Reactive Lymphs % (Man) 0 % 05/07/16 07:36 Monocytes % (Manual) 1.0 % (0.0-7.3) 05/07/16 07:36 Eosinophils % (Manual) 0 % (0.0-4.3) 05/07/16 07:36 Basophils % (Manual) 0 % (0.0-1.8) 05/06/16 08:32 Metamyelocytes % 0 % 05/07/16 07:36 Myelocytes % 0 % 05/07/16 07:36 Promyelocytes % 0 % 05/07/16 07:36 Blast Cells % 0 % 05/07/16 07:36 Nucleated RBC % Not Reportable 05/07/16 07:36 Seg Neutrophils # 5.1 K/mm3 (1.8-7.7) 05/09/16 09:34 Seg Neutrophils # Man 8.4 K/mm3 (1.8-7.7) H 05/07/16 07:36 Band Neutrophils # 0.3 K/mm3 05/07/16 07:36 Lymphocytes # (Manual) 0.7 K/mm3 (1.2-5.4) L 05/07/16 07:36 Abs React Lymphs (Man) 0.0 K/mm3 05/07/16 07:36 Monocytes # (Manual) 0.1 K/mm3 (0.0-0.8) 05/07/16 07:36 Eosinophils # (Manual) 0.0 K/mm3 (0.0-0.4) 05/07/16 07:36 Basophils # (Manual) 0.0 K/mm3 (0.0-0.1) 05/07/16 07:36 Metamyelocytes # 0.0 K/mm3 05/07/16 07:36 Myelocytes # 0.0 K/mm3 05/07/16 07:36 Promyelocytes # 0.0 K/mm3 05/07/16 07:36 Blast Cells # 0.0 K/mm3 05/07/16 07:36 WBC Morphology Not Reportable 05/07/16 07:36 Hypersegmented Neuts Not Reportable 05/07/16 07:36 Hyposegmented Neuts Not Reportable 05/07/16 07:36 Hypogranular Neuts Not Reportable 05/07/16 07:36 Smudge Cells Not Reportable 05/07/16 07:36 Toxic Granulation Not Reportable 05/07/16 07:36 Toxic Vacuolation Not Reportable 05/07/16 07:36 Dohle Bodies Not Reportable 05/07/16 07:36 Pelger-Huet Anomaly Not Reportable 05/07/16 07:36 Zenon Rods Not Reportable 05/07/16 07:36 Platelet Estimate Appears normal 05/07/16 07:36 Clumped Platelets Not Reportable 05/07/16 07:36 Plt Clumps, EDTA Not Reportable 05/07/16 07:36 Large Platelets Not Reportable 05/07/16 07:36 Giant Platelets Not Reportable 05/07/16 07:36 Platelet Satelliting Not Reportable 05/07/16 07:36 Plt Morphology Comment Not Reportable 05/07/16 07:36 RBC Morphology Not Reportable 05/07/16 07:36 Dimorphic RBCs Not Reportable 05/07/16 07:36 Polychromasia Few 05/07/16 07:36 Hypochromasia Not Reportable 05/07/16 07:36 Poikilocytosis 1+ 05/07/16 07:36 Anisocytosis 1+ 05/07/16 07:36 Microcytosis Not Reportable 05/07/16 07:36 Macrocytosis Not Reportable 05/07/16 07:36 Spherocytes Not Reportable 05/07/16 07:36 Pappenheimer Bodies Not Reportable 05/07/16 07:36 Sickle Cells Not Reportable 05/07/16 07:36 Target Cells Not Reportable 05/07/16 07:36 Tear Drop Cells 1+ 05/07/16 07:36 Ovalocytes 1+ 05/07/16 07:36 Helmet Cells Rare 05/07/16 07:36 [place] Bodies Not Reportable 05/07/16 07:36 [place] Rings Not Reportable 05/07/16 07:36 Arie Cells Rare 05/07/16 07:36 Bite Cells Not Reportable 05/07/16 07:36 Crenated Cell Not Reportable 05/07/16 07:36 Elliptocytes Not Reportable 05/07/16 07:36 Acanthocytes (Spur) Not Reportable 05/07/16 07:36 Rouleaux Not Reportable 05/07/16 07:36 Hemoglobin C Crystals Not Reportable 05/07/16 07:36 Schistocytes Not Reportable 05/07/16 07:36 Malaria parasites Not Reportable 05/07/16 07:36 ESR > 140.0 mm/Hr (0-20) 05/08/16 15:00 Tulio Bodies Not Reportable 05/07/16 07:36 Hem Pathologist Commnt No 05/07/16 07:36 Fibrinogen 1166 mg/dl (211-480) H 05/08/16 15:00 D-Dimer 4592.95 ng/mlDDU (0-234) H 05/08/16 15:00 Heparin Anti-Xa, Unfract Negative (Negative) 05/08/16 13:23 VBG pH 7.394 (7.320-7.420) 05/03/16 23:25 Sodium 135 mmol/L (137-145) L 05/10/16 07:16 Potassium 3.4 mmol/L (3.6-5.0) L 05/10/16 07:16 Chloride 91.3 mmol/L (98-107) L 05/10/16 07:16 Carbon Dioxide 28 mmol/L (22-30) 05/11/16 08:15 Anion Gap 21 mmol/L 05/10/16 07:16 BUN 68 mg/dL (7-17) H 05/11/16 08:15 Creatinine 3.0 mg/dL (0.7-1.2) H 05/11/16 08:15 Estimated GFR 18 ml/min 05/11/16 08:15 BUN/Creatinine Ratio 22.66 % 05/11/16 08:15 Glucose 89 mg/dL (65-100) 05/11/16 08:15 POC Glucose 96 (70-105) 05/11/16 11:21 Hemoglobin A1c 16.6 % (4-6) H 05/04/16 04:37 Osmolality 311 Mosm/kg 05/08/16 13:23 Lactic Acid 1.2 mmol/L (0.7-2.0) 05/08/16 19:20 Uric Acid 11.5 mg/dL (3.5-7.6) H 05/08/16 13:23 Calcium 6.7 mg/dL (8.4-10.2) L 05/11/16 08:15 Phosphorus 6.6 mg/dL (2.5-4.5) H 05/07/16 07:36 Magnesium 1.6 mg/dL (1.7-2.3) L 05/07/16 07:36 Total Bilirubin 3.8 mg/dL (0.1-1.2) H 05/10/16 07:16 AST 36 units/L (5-40) 05/10/16 07:16 ALT 25 units/L (7-56) 05/10/16 07:16 Alkaline Phosphatase 280 units/L (35-129) H 05/10/16 07:16 Lactate Dehydrogenase 320 units/L (91-180) H 05/08/16 13:23 Total Creatine Kinase 34 units/L (30-135) 05/03/16 22:27 Total Protein 5.5 g/dL (6.3-8.2) L 05/10/16 07:16 Albumin 1.7 g/dL (3.9-5) L 05/10/16 07:16 Albumin/Globulin Ratio 0.4 % 05/10/16 07:16 Triglycerides 66 mg/dL (2-149) 05/04/16 04:37 Cholesterol 161 mg/dL (50-199) 05/04/16 04:37 LDL Cholesterol Direct 33 mg/dL (50-130) L 05/04/16 04:37 HDL Cholesterol 115 mg/dL (40-59) H 05/04/16 04:37 Cholesterol/HDL Ratio 1.40 % 05/04/16 04:37 Vitamin B12 951.6 pg/mL (211-911) H 05/08/16 13:23 Folate 16.55 ng/mL (7.3-26.0) 05/08/16 13:23 TSH 3.830 mlU/mL (0.270-4.200) 05/03/16 22:27 PTH Intact 275.1 pg/mL (15-65) H 05/10/16 07:16 Urine Color Yellow (Yellow) 05/03/16 22:39 Urine Turbidity Slightly-cloudy (Clear) 05/03/16 22:39 Urine pH 6.0 (5.0-7.0) 05/03/16 22:39 Ur Specific [place] 1.011 (1.003-1.030) 05/03/16 22:39 Urine Protein 100 mg/dl mg/dL (Negative) 05/03/16 22:39 Urine Glucose (UA) >=500 mg/dL (Negative) 05/03/16 22:39 Urine Ketones Neg mg/dL (Negative) 05/03/16 22:39 Urine Blood Lg (Negative) 05/03/16 22:39 Urine Nitrite Neg (Negative) 05/03/16 22:39 Urine Bilirubin Neg (Negative) 05/03/16 22:39 Urine Urobilinogen < 2.0 mg/dL (<2.0) 05/03/16 22:39 Ur Leukocyte Esterase Lg (Negative) 05/03/16 22:39 Urine WBC (Auto) 108.0 /HPF (0.0-6.0) H 05/03/16 22:39 Urine RBC (Auto) 28.0 /HPF (0.0-6.0) 05/03/16 22:39 U Epithel Cells (Auto) < 1.0 /HPF (0-13.0) 05/03/16 22:39 Urine Bacteria (Auto) 2+ /HPF (Negative) 05/03/16 22:39 Urine Mucus Few /HPF 05/03/16 22:39 Urine Yeast (Budding) 1+ /HPF 05/03/16 22:39 Ketones 1.0 mg/dL (0.2-2.8) 05/03/16 23:25 Heparin-induced Plt Ab Negative (Negative) 05/08/16 13:23 UF Heparin High Dose 0 % Release (()) 05/08/16 13:23 FRACISCO UFH Low Dose 0.1 0 % Release (()) 05/08/16 13:23 FRACISCO UFH Low Dose 0.5 0 % Release (()) 05/08/16 13:23
[2016-05-11] MEDS: ZOCOR PO SCH (22:38)
[2016-05-11] MEDS: LEVEMIR SUB-Q SCH (22:41)
[2016-05-12] MEDS: NOVOLOG SUB-Q SCH ×4 (00:17→19:38)
[2016-05-12] MEDS: NACL 0.9% 1000 ML 1,000 ML IV SCH (00:18)
[2016-05-12 06:23] LABS: BUN/Creatinine Ratio 20.96; Calcium 6.9 mg/dL (8.4-10.2); Chloride 94.9 mmol/L (98-107); Potassium 3.7 mmol/L (3.6-5.0)
--- NOTE | 2016-05-12 09:29 | Progress Note ---
Assessment and Plan - Patient Problems (1) Sepsis Current Visit: Yes Status: Acute Plan to address problem: E.coli sepsis with UTI Bacteremia (2) UTI (urinary tract infection) Current Visit: Yes Status: Acute Qualifiers: Urinary tract infection type: acute cystitis Hematuria presence: without hematuria Qualified Code(s): N30.00 - Acute cystitis without hematuria (3) Acute kidney injury superimposed on CKD Current Visit: No Status: Acute Plan to address problem: may be prerenal with underlying CKD. R/O interstitial nephritis. Renal ultrasound -no acute findings, no hydro. Continue present hydration. Discusseed with family about the above and treatment plan. Adjust meds per renal function.continue IVF as ordered. No acute indication for dialysis.BUN- 68, Scr- leveling around 3.0Discussed with Hospitalist about discharge planning. Spoke with pt and family-pt is in home hospice (4) Anemia Current Visit: Yes Status: Chronic (5) Edema Current Visit: No Status: Chronic (6) Hypertension Current Visit: No Status: Chronic (7) Hypocalcemia Current Visit: Yes Status: Acute (8) Hyponatremia Current Visit: Yes Status: Acute (9) Metabolic acidosis Current Visit: Yes Status: Acute (10) Chronic obstructive pulmonary disease Current Visit: No Status: Chronic (11) Uncontrolled diabetes mellitus Current Visit: Yes Status: Acute Qualifiers: Diabetes mellitus type: type 2 Diabetes mellitus complication status: with hyperglycemia Subjective Date of service: 05/12/16 Interval history: pt is more alert today, feels weak, denies CP or SOB Objective - Vital Signs Vital signs: Vital Signs - 12hr 05/11/16 05/11/16 05/11/16 22:37 22:39 23:39 Temperature Pulse Rate 70 Pulse Rate [ Apical] Pulse Rate [ Left Radial] Respiratory 22 20 Rate Respiratory Rate [Left Hip] Blood Pressure 108/55 Blood Pressure [Right Arm] O2 Sat by Pulse Oximetry 05/12/16 05/12/16 05/12/16 00:00 01:00 07:39 Temperature 97.7 F 98.3 F Pulse Rate Pulse Rate [ 72 83 Apical] Pulse Rate [ 70 Left Radial] Respiratory 18 16 Rate Respiratory 22 Rate [Left Hip] Blood Pressure Blood Pressure 108/53 165/85 [Right Arm] O2 Sat by Pulse 97 97 Oximetry - General Appearance General appearance: well-developed, obese EENT: mucous membranes moist Neck: no JVD Respiratory: Present: Decreased Breath Sounds Cardiology: regular Gastrointestinal: normoactive bowel sounds Neurologic: alert and oriented x3 Musculoskeletal: other (1+edema) Psychiatric: mood/affect appropriate, cooperative - Lab 05/09/16 09:34 05/12/16 05:11 Most recent lab results Calcium 6.9 mg/dL (8.4-10.2) L 05/12/16 05:11 Phosphorus 6.6 mg/dL (2.5-4.5) H 05/07/16 07:36 Magnesium 1.6 mg/dL (1.7-2.3) L 05/07/16 07:36
[2016-05-12] MEDS: PERCOCET 5/325 PO PRN ×2 (11:10→17:05)
[2016-05-12] MEDS: COREG PO SCH (11:11)
[2016-05-12] MEDS: BABY ASPIRIN PO SCH (11:12)
[2016-05-12] MEDS: NEURONTIN PO SCH ×2 (11:12→19:37)
[2016-05-12] MEDS: ROCEPHIN/NS 1 GM/50 ML 50 ML IV SCH (11:13)
--- NOTE | 2016-05-12 11:47 | Discharge Summary ---
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 coli * cont rocephin Acute renal insufficiency superimposed on chronic kidney disease * Renal ultrasound with no acute findings (no obstruction, no hydronephrosis) * Nephrology following and additional workup ordered * Avoid nephrotoxins - colchicine, lasix and hydralazine held * Continue to monitor BUN/creatinine and electrolytes out patient and follow pending results Uncontrolled diabetes with hyperglycemia * BS on admission 500, Hemoglobin A1c 16 * cont finger sticks and subcu insulin CAD With history of acute [place] * On beta dinesh, aspirin and statin; * not on BRANDON inhibitor likely secondary to chronic kidney disease Hypertension * BP controlled on Coreg, amlodipine, hydralazine Diastolic CHF * On beta dinesh * Not an BRANDON inhibitor or lasix secondary to worsening kidney disease Hyperlipidemia On statin Gout, Continue colchicine Thrombocytopenia * heparin discontinued and HIT panel obtained Disposition: DC TO HOSPICE (HOME) Time spent for discharge: 40 minutes Core Measure Documentation - Palliative Care Palliative Care/ Comfort Measures: Hospice Care - Core Measures Any of the following diagnoses?: none Exam - Physical Exam Narrative exam: GENERAL: elderly obese AAF lying on bed appeared to be in no discomfort. HEENT: Normocephalic. Atraumatic. No conjunctival congestion or icterus. Patient has moist mucous membranes. puffy face. NECK: Supple. Trachea midline. CHEST/LUNGS: Clear to auscultated bilaterally, breathing nonlabored. No wheezes crackles or rhonchi. HEART/CARDIOVASCULAR: Regular in rate and rhythm. S1 and S2 positive. ABDOMEN: Abdomen is soft, nontender, obese. Patient has normal bowel sounds. SKIN: There is no rash. Warm and dry. NEURO: No focal motor deficit. Follows command. diminished muscle strength b/l MUSCULOSKELETAL: No joint effusion or tenderness. EXTRIMITY: + edema, no cyanosis or clubbing. - Constitutional Vitals: Temp Pulse Resp BP Pulse Ox 98.3 F 83 16 165/85 97 05/12/16 07:39 05/12/16 07:39 05/12/16 07:39 05/12/16 11:11 05/12/16 07:39 Plan Activity: up only with assistance Diet: diabetic, renal Special Instructions: restrict fluid intake to (1500ml daily) Follow up with: ERIN TOVAR DO [Primary Care Provider] - 3-5 Days Prescriptions: cefTRIAXone/NS 1 GM/50 ML [Rocephin/Ns 1 gm/50 ml] 50 ml IV Q24HR #5 bag
--- NOTE | 2016-05-12 13:20 | Consultation ---
History of Present Illness - Reason for Consult Consult date: 05/12/16 - History of Present Illness Patient seen/examined, both yesterday, and today. Note was omitted for yesterday.Today, she stated feels ok. No new complaints. Lots of family in the room,, Q/A done. PER THE REVIEW OF HER RECORD, THE PRIMARY TEAM, PLANNING ON D /C HO WITH HOME HEALTH. Past History Past Medical History: acute [place], anemia, COPD, diabetes, hypertension, renal failure Past Surgical History: appendectomy, Other (cardiac stent) Social history: , lives with family. denies: smoking, alcohol abuse, prescription drug abuse Family history: diabetes, hypertension Medications and Allergies Allergies Allergy/AdvReac Type Severity Reaction Status Date / Time No Known Allergies Allergy Verified 09/13/14 17:59 Home Medications Medication Instructions Recorded Confirmed Last Taken Type Aspirin [Aspirin BABY CHEW TAB] 81 mg PO QDAY 10/25/13 05/11/16 09/13/14 History Carvedilol [Coreg] 12.5 mg PO BID 10/25/13 05/11/16 09/13/14 History Citalopram [Celexa] 20 mg PO QDAY 10/25/13 05/11/16 09/13/14 History Esomeprazole Magnesium [NexIUM] 40 mg PO BID 10/25/13 05/11/16 09/13/14 History Gabapentin 300 mg PO TID 10/25/13 05/11/16 09/13/14 History Hydralazine HCl [hydrALAZINE] 100 mg PO TID 10/25/13 05/11/16 09/13/14 History Insulin Aspart [NovoLOG 100 10 unit SQ ACHS 01/26/14 05/11/16 09/13/14 History UNITS/ML VIAL] Insulin Glargine,Hum.rec.anlog 30 units SQ QHS 01/26/14 05/11/16 09/13/14 History [Lantus] Oxycodone HCl/Acetaminophen 5 each PO BID PRN 04/09/14 05/07/16 09/13/14 History [OxyCODONE-Acetaminophen 2.5-325 mg] Cyclobenzaprine HCl [Flexeril 5 MG 5 mg PO BID 10/09/15 05/11/16 Unknown History TAB] Ramelteon [Rozerem] 8 mg PO DAILY 10/09/15 05/11/16 Unknown History Simvastatin [Zocor TAB] 20 mg PO QHS MDD 1 tab 10/09/15 05/11/16 05/03/16 History amLODIPine [Norvasc] 5 mg PO DAILY 10/09/15 05/11/16 05/03/16 History cefTRIAXone/NS 1 GM/50 ML 50 ml IV Q24HR #5 bag 05/12/16 Unknown Rx [Rocephin/Ns 1 gm/50 ml] Active Meds: Active Medications Acetaminophen (Tylenol) 650 mg DC Q8H PRN PRN Reason: Pain, Mild (1-3) Last Admin: 05/07/16 05:23 Dose: 650 mg Aspirin (Baby Aspirin) 81 mg PO QDAY [facility] Last Admin: 05/12/16 11:12 Dose: 81 mg Carvedilol (Coreg) 25 mg PO BID [facility] Last Admin: 05/12/16 11:11 Dose: 25 mg Dextrose (D50w (25gm)) 50 ml IV PRN PRN PRN Reason: Hypoglycemia Gabapentin (Neurontin) 100 mg PO TID [facility] Last Admin: 05/12/16 11:12 Dose: 100 mg Ceftriaxone Sodium (Rocephin/Ns 1 Gm/50 Ml) 50 mls @ 100 mls/hr IV Q24HR [facility] PRN Reason: Protocol Last Admin: 05/12/16 11:13 Dose: 100 mls/hr Sodium Chloride (Nacl 0.9% 1000 Ml) 1,000 mls @ 75 mls/hr IV DIRECT [facility] Last Admin: 05/12/16 00:18 Dose: 75 mls/hr Insulin Aspart (Novolog) 0 units SUB-Q Q6HR [facility] PRN Reason: Protocol Last Admin: 05/12/16 06:13 Dose: Not Given Insulin Detemir (Levemir) 30 units SUB-Q QHS [facility] Last Admin: 05/11/16 22:41 Dose: Not Given Lidocaine HCl (Magic Mouthwash) 15 ml PO TID [facility] Last Admin: 05/11/16 21:02 Dose: 15 ml Oxycodone/Acetaminophen (Percocet 5/325) 1 tab PO Q6H PRN PRN Reason: Pain, Moderate (4-6) Last Admin: 05/12/16 11:10 Dose: 1 tab Simvastatin (Zocor) 20 mg PO QHS [facility] Last Admin: 05/11/16 22:38 Dose: 20 mg Review of Systems Constitutional: fatigue, chronic pain Breasts: deferred Musculoskeletal: low back pain Exam - Constitutional Vitals: Temp Pulse Resp BP Pulse Ox 98.3 F 83 16 165/85 97 05/12/16 07:39 05/12/16 07:39 05/12/16 07:39 05/12/16 11:11 05/12/16 07:39 General appearance: Present: mild distress, well-nourished - EENT Eyes: Present: PERRL ENT: hearing intact, clear oral mucosa - Neck Neck: Present: supple, normal ROM - Respiratory Respiratory effort: normal Respiratory: bilateral: CTA - Cardiovascular Heart Sounds: Present: S1 & S2. Absent: rub, click - Extremities Extremities: pulses symmetrical, No edema Peripheral Pulses: within normal limits - Abdominal General gastrointestinal: Present: soft, non-tender, non-distended, normal bowel sounds Female genitourinary: Present: deferred - Rectal Rectal Exam: deferred - Integumentary Integumentary: Present: clear, warm, dry - Musculoskeletal Musculoskeletal: gait normal, strength equal bilaterally - Psychiatric Psychiatric: appropriate mood/affect - Neurologic Neurologic: moves all extremities Results - Labs CBC & Chem 7: 05/09/16 09:34 05/12/16 05:11 Labs: Abnormal lab results 05/10/16 05/11/16 05/12/16 Range/Units 07:16 16:12 05:11 Sodium 136 L (137-145) mmol/L Chloride 94.9 L (98-107) mmol/L BUN 65 H (7-17) mg/dL Creatinine 3.1 H (0.7-1.2) mg/dL POC Glucose 63 L (70-105) Calcium 6.9 L (8.4-10.2) mg/dL Ionized Calcium 3.9 L (4.8-5.6) mg/dL Assessment and Plan - Patient Problems (1) Chronic pain Current Visit: Yes Status: Acute Qualifiers: Chronic pain type: other chronic pain Qualified Code(s): G89.29 - Other chronic pain Plan to address problem: safe pain control. same as above. Patient is on adequate oral pain control. same as above. No new changes, (2) Debility Current Visit: Yes Status: Acute Plan to address problem: Will need supportive care, with Therapy.physically. same as above. She may benefit from, PT/OT in bed. Same as above. (3) Uncontrolled diabetes mellitus Current Visit: Yes Status: Acute Qualifiers: Diabetes mellitus type: type 2 Diabetes mellitus complication status: with hyperglycemia Plan to address problem: This was initially in part due to chronic steroid use.Will need tighter BG control. (4) CKD (chronic kidney disease), stage II Current Visit: Yes Status: Chronic Plan to address problem: deffer to the renal service. (5) Anemia Current Visit: Yes Status: Chronic Plan to address problem: lab monitoring, treating the underlying problem.ie CKD. Still stable. still stable. (6) Sepsis Current Visit: Yes Status: Acute Plan to address problem: due to uti,most likely multi organism. continue with IV abx, and await C/S. improving. resolving (7) Thrombocytopenia Current Visit: Yes Status: Acute Plan to address problem: Will do w/up. awaiting w/p lab results. stable so far. (8) Uric acid arthropathy Current Visit: Yes Status: Acute Plan to address problem: asymptomatic,/and will deffer.
[2016-05-12 15:05] VITALS: BP 125/64
--- NOTE | 2016-05-12 15:37 | XRay Report ---
Portable chest: Comparison is made to October 09, 2015. A left PICC line is currently present with the tip in the mid SVC region. The cardiac contour is slightly enlarged and there is mild vascular congestion. The cardiopulmonary pattern has worsened since prior study. Impressions: Congestive changes. Well-positioned left PICC line.
[2016-05-12 17:13] LABS: Myeloperoxidase Antibody <1.0 AI (<1.0)
--- NOTE | 2016-05-12 18:07 | Echocardiography Report ---
Transthoracic Echocardiogram Indication: Bactremia BP: 165/85 HR: 71 Findings Procedure Info: The study quality is poor. Left Ventricle: The left ventricular chamber size is normal. Mild concentric left ventricular hypertrophy is observed. Global left ventricular systolic function is at the lower limits of normal. The estimated ejection fraction is 50-55%. Left Atrium: The left atrial chamber size is normal. Right Ventricle: The right ventricular cavity size is normal. The right ventricular global systolic function is normal. Right Atrium: The right atrial cavity size is normal. Aortic Valve: The aortic valve is trileaflet. The aortic valve leaflets are mildly thickened. There is trace of aortic regurgitation. There is no evidence of aortic stenosis. Mitral Valve: The mitral valve leaflets appear myxomatous. The mitral valve leaflets are mildly thickened. There is mild mitral regurgitation. There is no evidence of mitral stenosis. Tricuspid Valve: There is trace tricuspid regurgitation. No pulmonary hypertension is noted. Pericardium: There is no pericardial effusion. Aorta: There is no dilatation of the aortic root. Measurements Chambers MM Name Value Normal Range IVSd (MM) 1.48 cm (0.6 - 1.1) LVPWd (MM) 1.3 cm (0.6 - 1.1) IVS:LVPW ratio 1.14 ratio - LVIDd (MM) 5.56 cm (3.7 - 5.6) LVIDs (MM) 4.04 cm (2 - 2.8) LV FS (Teichholz) (MM) 27.3 % - LV FS (cube) (MM) 27.3 % - EF Teichholz (MM) 52.5 % - Ao root diameter (MM) 2.8 cm (2 - 3.7) LA dimension (AP) MM 4.3 cm (1.9 - 4) LA:Ao ratio (MM) 1.54 ratio - AV cusp separation (MM) 1.9 cm (1.5 - 2.6) Chambers 2D Name Value Normal Range IVSd (2D) 1.08 cm (0.6 - 1.1) LVPWd 1.03 cm - LVPWd (2D) 1.03 cm (0.6 - 1.1) IVS:LVPW ratio (2D) 1.05 ratio - LVIDd 4.5 cm - LVIDs 3.5 cm - LVIDd (2D) 4.51 cm (3.7 - 5.6) LVIDs (2D) 3.45 cm (2 - 3.8) LV FS (Teichholz) (2D) 23.5 % - LV FS (cube) (2D) 23.5 % - LV EF (2D) 47 % - EF Teichholz (2D) 47.1 % - Ao root diameter (2D) 2.6 cm (2 - 3.7) LA dimension (AP) 2D 3.6 cm (1.9 - 4) LA:Ao ratio (2D) 1.38 ratio - Volumes/Mass Name Value Normal Range LA ESV SP 4CH (MOD) 55 ml - LV EDV SP 4CH (MOD) 92 ml - LV ESV SP 4CH (MOD) 56 ml - EF SP 4CH (MOD) 39 % - Diastolic/Systolic Function Name Value Normal Range MV E-wave Vmax 1.02 m/sec - MV deceleration time 261 msec - MV A-wave Vmax 0.94 m/sec - MV E:A ratio 1.1 ratio - LV septal e' Vmax 0.04 m/sec - LV lateral e' Vmax 0.1 m/sec - LV E:e' septal ratio 28.3 ratio - LV E:e' lateral ratio 10.4 ratio - Aortic Valve Name Value Normal Range AV VTI 31.9 cm - AV mean gradient 5 mmHg - LVOT diameter 1.9 cm - LVOT VTI 18.3 cm - LVOT mean gradient 2 mmHg - SV LVOT 52 ml - FELECIA (continuity VTI) 1.63 cm2 - Pulmonic Valve/Qp:Qs Name Value Normal Range PV Vmax 0.73 m/sec - PV peak gradient 2 mmHg - PV acceleration time 106 msec -
[2016-05-12] MEDS: MAGIC MOUTHWASH PO SCH ×2 (19:36→19:37)
--- NOTE | 2016-05-18 11:58 | Query-Kidney Disease ---
Dear Date:_05/18/16 Drop Worker/CDS:Hi Gil Phone#: Exercise your independent professional judgment when responding to query. Questions asked do not imply a particular answer is desired or expected. We greatly appreciate your clarification on this issue. Clinical Documentation States: 76 y/o f admitted 05/04/16 with sepsis 2/2 UTI. Patient also diagnosed with OMARI superimposed on CKD. Clinical Findings Show: Creatinine - 1.5-> 3.0-> 3.6 BUN - 40-> 58-> 70 GFR - 41-> 18-> 15 Please Clarify if you mean: Acute Renal Failure with or due to: [ ] Tubular Necrosis [ ] Cortical Necrosis [ ] Shock Kidney [x ] Vasomotor Nephropathy [ ] Lower Tubular Nephrosis [ ] Renal Tubular Stasis [ ] Tubular Nephrosis [ ] Medullary Necrosis [ ] Acute Renal Failure (unspecified) [ ] Other: [ ] Comment/Explanation: Chronic Kidney Disease (Please [place] applicable stage) 3 Stages Description GFR [ ] CKD Stage 1 90 mL/min or more [ ] CKD Stage 2 Mild decrease in Kidney function 60 to 89 mL/min [ x] CKD Stage 3 Moderate decrease in kidney function 30-59 [ ] CKD Stage 4 Severe decrease in kidney function 15-29 [ ] CKD Stage 5 Kidney failure; requiring dialysis or transplantation <15 [ ] ESRD Patient requiring dialysis for > 3 months or kidney transplant irrespective of level of GFR; Applicable for 1 year after kidney transplant [ ] Other: [ ] Comment/Explanation: Present on Admission: [x ] Yes (Y) [ ] Clinically undeterminable (W) [ ] No (N) Please also document response in your Progress Notes and/or Discharge Summary and indicate if the condition was present on admission MTDD
== END 2016-05-12 20:42 | disposition hospice, home (50) | DRG 871 ==
LOC: ED 21:09 → 3A 05-04 04:21 → 4A 05-04 09:27 → 3A 05-04 09:27
PROVIDERS: ADMIT Internal Medicine; ATTEND Internal Medicine
PROC: 4A033R1 Measurement of Arterial Saturation, Peripheral, Percutaneous Approach (ICD-10-PCS; 2016-05-03)
PROC: 02HV33Z Insertion of Infusion Device into Superior Vena Cava, Percutaneous Approach (ICD-10-PCS; principal; 2016-05-12)
DX: A41.9 Sepsis, unspecified organism (principal); N17.0 Acute kidney failure with tubular necrosis; I13.0 Hypertensive heart and chronic kidney disease with heart failure and stage 1 through stage 4 chronic kidney disease, or unspecified chronic kidney disease; I50.30 Unspecified diastolic (congestive) heart failure; N30.00 Acute cystitis without hematuria; J96.11 Chronic respiratory failure with hypoxia; E87.1 Hypo-osmolality and hyponatremia; D61.818 Other pancytopenia; E11.65 Type 2 diabetes mellitus with hyperglycemia; G89.29 Other chronic pain; M54.9 Dorsalgia, unspecified; J44.9 Chronic obstructive pulmonary disease, unspecified; M19.90 Unspecified osteoarthritis, unspecified site; I25.10 Atherosclerotic heart disease of native coronary artery without angina pectoris; N18.2 Chronic kidney disease, stage 2 (mild); R54 Age-related physical debility; D63.8 Anemia in other chronic diseases classified elsewhere; E78.5 Hyperlipidemia, unspecified; M10.9 Gout, unspecified; D69.6 Thrombocytopenia, unspecified; E83.51 Hypocalcemia; E11.22 Type 2 diabetes mellitus with diabetic chronic kidney disease; Z79.4 Long term (current) use of insulin; I25.2 Old myocardial infarction; Z90.49 Acquired absence of other specified parts of digestive tract; Z95.5 Presence of coronary angioplasty implant and graft; Z79.82 Long term (current) use of aspirin; Z79.2 Long term (current) use of antibiotics; Z79.899 Other long term (current) drug therapy; Z82.49 Family history of ischemic heart disease and other diseases of the circulatory system; Z83.3 Family history of diabetes mellitus; Z91.19 Patient's noncompliance with other medical treatment and regimen
CPT/HCPCS: 36415; 70450; 71010; 74230; 76700; 76770; 80048; 80053; 80061; 81001; 82010; 82140; 82330; 82550; 82607; 82747; 82805; 82962; 83036; 83615; 83735; 83930; 83970; 84100; 84443; 84550; 85007; 85025; 85379; 85384; 85652; 86021; 86022; 86038; 86160; 87040; 87076; 87086; 87186; 93005; 93010; 93306; 94760; 96365; 96375; G8978-GP; G8979-GP; G8996-GN; G8997-GN; G8998-GN; J0692; J0696; J1644; J1815; J1818; J1956; J3010; J7030; J7040